=== PATIENT | female | born 1955 | race Caucasian/White ===

== ENCOUNTER → 2016-03-11 | Outpatient (CLI) | payer BC, MEDICARE ==
[2016-03-11 14:52] LABS: Basophils % (A) 0 %; CH 31.6; CHCM 33.4; Eosinophils # (A) 0.1 k/uL (0-0.7); Eosinophils % (A) 4 %; HCT 42.7 % (34.0-46.0); HDW 2.93; HGB 13.6 gm/dL (11.4-16.0); Luc # (Auto) 0.07; Luc % (Auto) 2; Lymphocytes # (A) 1.3 k/uL (1.0-4.8); Lymphocytes % (A) 34 %; MCH 30.5 pg (25.0-35.0); MCV 95.4 fL (80.0-100.0); Mean Platelet Volume 8.2; Monocytes # (A) 0.3 k/uL (0-1.0); Monocytes % (A) 7 %; Neutrophils # (A) 2.1 k/uL (1.3-7.7); Neutrophils % (A) 54 %; RBC 4.47 m/uL (3.80-5.40); RDW 15.3 % (11.5-15.5); WBC (Perox) 3.98
[2016-03-11 15:02] LABS: ALT 39 U/L (9-52); AST 35 U/L (14-36); Alkaline Phosphatase 103 U/L (38-126); Amylase 46 U/L (30-110); Anion Gap 10 mmol/L; Blood Urea Nitrogen 12 mg/dL (7-17); Calcium 9.6 mg/dL (8.4-10.2); Carbon Dioxide 31 mmol/L (22-30); Chloride 105 mmol/L (98-107); Glucose 96 mg/dL (74-99); Non-African American GFR(MDRD) >60 (>60 ml/min/1.73 sqM); Potassium 4.2 mmol/L (3.5-5.1); Sodium 146 mmol/L (137-145); Total Bilirubin 1.6 mg/dL (0.2-1.3); Total Protein 7.3 g/dL (6.3-8.2)
[2016-03-11 15:18] LABS: Large Platelets Present
[2016-03-11 15:19] LABS: Polychromasia Present
[2016-03-11 15:33] LABS: Hepatitis B Surface Ag Index 0.08
[2016-03-11 15:39] LABS: Hepatitis B Core IgM Index 0.04
[2016-03-11 15:51] LABS: Hepatitis C Virus IgG Ab Negative (Negative); Hepatitis C Virus IgG Index 0.64
[2016-03-11 16:03] LABS: Erythrocyte Sedimentation Rate 8 mm/hr (0-20)
== END | disposition home or self-care (01) ==
LOC: LABWHC1 13:46
PROVIDERS: ATTEND Family Medicine
DX: K72.90 Hepatic failure, unspecified without coma (principal); I10 Essential (primary) hypertension; R10.84 Generalized abdominal pain; Z11.59 Encounter for screening for other viral diseases
CPT/HCPCS: 36415; 80053; 80074; 82105; 82140; 82150; 83690; 84439; 84443; 85025; 85652

== ENCOUNTER 2018-03-26 15:03 | Inpatient (IN) | payer MEDICARE ==
[2018-03-26 16:31] LABS: Appearance,Urine Cloudy (Clear); Bilirubin,Urine 1+ (Negative); Blood,Urine Negative (Negative); Color,Urine Orange; Glucose,Urine (UA) Negative (Negative); Ketones,Urine Negative (Negative); Leukocyte Esterase,Urine Negative (Negative); Mucus,Urine Many /hpf; Nitrite,Urine Negative (Negative); PH, Urine 5.5 (5.0-8.0); Protein,Urine 1+ (Negative); Specific Gravity,Urine 1.021 (1.001-1.035); Squamous Epithelial Cell,Urine 2 /hpf (0-4); WBC,Urine 1 /hpf (0-5)
[2018-03-26 16:45] LABS: Basophils % (A) 0 %; Eosinophils # (A) 0.1 k/uL (0-0.7); Eosinophils % (A) 1 %; HCT 38.2 % (34.0-46.0); HGB 12.6 gm/dL (11.4-16.0); Lymphocytes # (A) 0.9 k/uL (1.0-4.8); Lymphocytes % (A) 13 %; MCH 29.8 pg (25.0-35.0); MCHC 32.9 g/dL (31.0-37.0); MCV 90.5 fL (80.0-100.0); Mean Platelet Volume 7.1; Monocytes # (A) 0.5 k/uL (0-1.0); Monocytes % (A) 7 %; Neutrophils # (A) 5.6 k/uL (1.3-7.7); Neutrophils % (A) 78 %; Platelet Count 173 k/uL (150-450); RBC 4.23 m/uL (3.80-5.40); RDW 14.9 % (11.5-15.5); WBC 7.2 k/uL (3.8-10.6)
[2018-03-26 16:58] LABS: ALT 23 U/L (9-52); AST 34 U/L (14-36); Albumin 3.8 g/dL (3.5-5.0); Alkaline Phosphatase 128 U/L (38-126); Amylase 35 U/L (30-110); Anion Gap 10 mmol/L; Blood Urea Nitrogen 17 mg/dL (7-17); Calcium 9.2 mg/dL (8.4-10.2); Carbon Dioxide 26 mmol/L (22-30); Chloride 105 mmol/L (98-107); Glucose 120 mg/dL (74-99); Lipase 162 U/L (23-300); Potassium 4.5 mmol/L (3.5-5.1); Sodium 141 mmol/L (137-145); Total Bilirubin 1.7 mg/dL (0.2-1.3); Total Protein 7.6 g/dL (6.3-8.2)
--- NOTE | 2018-03-26 17:35 | CT ---
EXAMINATION TYPE: CT abdomen pelvis w IV con DATE OF EXAM: 03/26/2018 COMPARISON: None HISTORY: Abdominal pain CT DLP: 1021.3 mGycm Automated exposure control for dose reduction was used. TECHNIQUE: Departmental protocol. Helical acquisition of images was performed from the lung bases th rough the pelvis. Axial and coronal and sagittal sequences obtained. CONTRAST: 100 mL of Isovue 300 IV contrast. No oral contrast. FINDINGS: PERITONEAL CAVITY: There is massive ascites throughout the abdomen and pelvis. LIVER/SPLEEN: The liver is markedly atrophic, with the liver margins prominently scalloped. There is mild-plus splenomegaly with greatest dimension measuring 15 cm. VASCULATURE: Abdominal varices are noted. There is low attenuation within the main portal vein, likel y flow-related mixing of relatively low-opacified mesenteric vessels compared with the robust opacifi cation of the splenic vein. Low attenuation noted within the common femoral veins bilaterally, likely unopacified blood returning from the lower extremities. BILIARY TREE/PANCREAS: Cholelithiasis and sludge occupying approximately 5% of the gallbladder lumen. Biliary tree otherwise unremarkable. Pancreas unremarkable. ADRENALS: No significant abnormality is seen. KIDNEYS: No significant abnormality is seen. RETROPERITONEAL ADENOPATHY: None visualized. OMENTUM: There is a nonspecific moderately-prominent reticular pattern of increased density throughou t the omentum suggesting edematous change. REPRODUCTIVE ORGANS: No significant abnormality is seen URINARY BLADDER: No significant abnormality is seen. PELVIC ADENOPATHY: None visualized. OSSEOUS STRUCTURES: No significant abnormality is seen. BOWEL: No bowel obstruction or pneumatosis. SUPRADIAPHRAGMATIC FINDINGS: No significant abnormality is appreciated. Coronary calcifications noted . IMPRESSION: 1. MASSIVE ASCITES WITH HEPATOSPLENIC AND ABDOMINAL VARICES COMPATIBLE WITH A CLINICAL DIAGNOSIS OF CIRRHOSIS. 2. NO ACUTE BOWEL ABNORMALITY. 3. OMENTAL RETICULATION PATTERN. 4. LOW ATTENUATION OF BILATERAL COMMON FEMORAL VEINS AND PORTAL VEIN, LIKELY FLOW-RELATED PHENOMENON . 5. CORONARY CALCIFICATIONS.
--- NOTE | 2018-03-26 18:24 | ED ---
General Adult HPI - General Chief complaint: Abdominal Pain Stated complaint: Bloated, abd pain Time Seen by Provider: 03/26/18 15:29 Source: patient, RN notes reviewed Mode of arrival: ambulatory Limitations: no limitations - History of Present Illness Initial comments: 62-year-old female with a past medical history of cirrhosis, hyperlipidemia, hypertension presents to the emergency department for abdominal distention 2 months. Patient states this has worsened in the past few weeks. Patient states she had a negative CAT scan about 2 months ago. She states her primary set her up to see a GI physician next week but she could not make it to that point. Patient states her abdomen is very distended and it is uncomfortable. Patient is having normal bowel movements and last had a normal bowel movement earlier today. Patient is passing gas normally. She is eating and drinking. She denies significant pain but states that it is uncomfortable. Patient has never undergone paracentesis - Related Data Home Medications Medication Instructions Recorded Confirmed Calcium 1200mg/Vit D 1000 Units 1 tab PO DAILY 09/25/14 03/26/18 Multivit with Calcium,Iron,Min 1 tab PO DAILY 09/25/14 03/26/18 [Women's Daily Multivitamin] Omeprazole 40 mg PO DAILY PRN 09/25/14 03/26/18 Atenolol [Tenormin] 50 mg PO DAILY 03/26/18 03/26/18 Magnesium Oxide [Mag-Ox] 400 mg PO DAILY 03/26/18 03/26/18 Potassium Chloride ER [K-Dur 20] 40 meq PO TID 03/26/18 03/26/18 Sertraline [Zoloft] 100 mg PO DAILY 03/26/18 03/26/18 Spironolactone [Aldactone] 25 mg PO DAILY 03/26/18 03/26/18 rOPINIRole HCL [Requip] 0.5 mg PO HS 03/26/18 03/26/18 Previous Rx's Medication Instructions Recorded Furosemide [Lasix] 40 mg PO DAILY #30 tab 09/28/14 Allergies Allergy/AdvReac Type Severity Reaction Status Date / Time No Known Allergies Allergy Verified 03/26/18 16:11 Review of Systems ROS Statement: Those systems with pertinent positive or pertinent negative responses have been documented in the HPI. ROS Other: All systems not noted in ROS Statement are negative. Past Medical History Past Medical History: Hyperlipidemia, Hypertension, Liver Disease Additional Past Medical History / Comment(s): diagnosed with liver damage from ETOH in History of Any Multi-Drug Resistant Organisms: None Reported Past Surgical History: Orthopedic Surgery Past Psychological History: No Psychological Hx Reported Smoking Status: Former smoker Past Alcohol Use History: Occasional Past Drug Use History: None Reported - Past Family History Mother Family Medical History: No Reported History General Exam Limitations: no limitations Course Vital Signs 03/26/18 03/26/18 15:18 18:19 Temperature 98.6 F Pulse Rate 89 85 Respiratory 18 16 Rate Blood Pressure 123/84 121/71 O2 Sat by Pulse 96 95 Oximetry Medical Decision Making - Medical Decision Making 62-year-old female with a past medical history of cirrhosis, hyperlipidemia, hypertension presents for abdominal distention 2 months. Patient states this is uncomfortable but denies pain. On exam patient does have distention noted. No tenderness to palpation. No erythema or evidence of infection noted. Vitals are within acceptable limits. CBC CMP unremarkable. Total bilirubin 1.7 which is patient's baseline. Urine does not show any evidence of infection. CT abdomen and pelvis shows massive ascites with hepatosplenic and abdominal varices. No acute bowel abnormality. Given patient's history of cirrhosis as well as massive ascites without history of paracentesis she will be admitted for further evaluation and possible paracentesis. Discussed case with Dr tillman - Lab Data Result diagrams: 03/26/18 16:34 03/26/18 16:34 Lab Results 03/26/18 03/26/18 03/26/18 Range/Units 16:18 16:34 16:34 WBC 7.2 (3.8-10.6) k/uL RBC 4.23 (3.80-5.40) m/uL Hgb 12.6 (11.4-16.0) gm/dL Hct 38.2 (34.0-46.0) % MCV 90.5 (80.0-100.0) fL MCH 29.8 (25.0-35.0) pg MCHC 32.9 (31.0-37.0) g/dL RDW 14.9 (11.5-15.5) % Plt Count 173 (150-450) k/uL Neutrophils % 78 % Lymphocytes % 13 % Monocytes % 7 % Eosinophils % 1 % Basophils % 0 % Neutrophils # 5.6 (1.3-7.7) k/uL Lymphocytes # 0.9 L (1.0-4.8) k/uL Monocytes # 0.5 (0-1.0) k/uL Eosinophils # 0.1 (0-0.7) k/uL Basophils # 0.0 (0-0.2) k/uL Sodium 141 (137-145) mmol/L Potassium 4.5 (3.5-5.1) mmol/L Chloride 105 (98-107) mmol/L Carbon Dioxide 26 (22-30) mmol/L Anion Gap 10 mmol/L BUN 17 (7-17) mg/dL Creatinine 0.54 (0.52-1.04) mg/dL Est GFR (CKD-EPI)AfAm >90 (>60 ml/min/1.73 sqM) Est GFR (CKD-EPI)NonAf >90 (>60 ml/min/1.73 sqM) Glucose 120 H (74-99) mg/dL Calcium 9.2 (8.4-10.2) mg/dL Total Bilirubin 1.7 H (0.2-1.3) mg/dL AST 34 (14-36) U/L ALT 23 (9-52) U/L Alkaline Phosphatase 128 H (38-126) U/L Total Protein 7.6 (6.3-8.2) g/dL Albumin 3.8 (3.5-5.0) g/dL Amylase 35 (30-110) U/L Lipase 162 (23-300) U/L Urine Color [place] Urine Appearance Cloudy H (Clear) Urine pH 5.5 (5.0-8.0) Ur Specific [place] 1.021 (1.001-1.035) Urine Protein 1+ H (Negative) Urine Glucose (UA) Negative (Negative) Urine Ketones Negative (Negative) Urine Blood Negative (Negative) Urine Nitrite Negative (Negative) Urine Bilirubin 1+ H (Negative) Urine Urobilinogen 3.0 (<2.0) mg/dL Ur Leukocyte Esterase Negative (Negative) Urine WBC 1 (0-5) /hpf Ur Squamous Epith Cells 2 (0-4) /hpf Urine Mucus Many H (None) /hpf Disposition Clinical Impression: Alcoholic cirrhosis, Ascites Disposition: ADMITTED IP TO THIS HOSP Condition: Good Referrals: Susana Arreguin MD [Primary Care Provider] - 1-2 days Time of Disposition: 18:49
[2018-03-26] MEDS ORDERED: ACETAMINOPHEN TAB 325 MG TAB PO PRN (19:21)
[2018-03-26] MEDS ORDERED: NALOXONE 0.4 MG/ML 1 ML VIAL IV PRN (19:21)
[2018-03-26] MEDS ORDERED: traMADol 50 MG TAB PO PRN (19:21)
[2018-03-26] MEDS ORDERED: ONDANSETRON 4 MG/2 ML VIAL IVP PRN (19:21)
[2018-03-26] MEDS ORDERED: PANTOPRAZOLE 40 MG TABLET PO PRN (22:21)
[2018-03-26] MEDS: SODIUM CHLORIDE 0.9% 1,000 ML IV SCH (22:28)
[2018-03-26] MEDS: POTASSIUM CHLORIDE ER 20 MEQ TAB.ER PO SCH (22:38)
[2018-03-26] MEDS: SERTRALINE 100 MG TAB PO SCH (22:38)
[2018-03-27] MEDS: POTASSIUM CHLORIDE ER 20 MEQ TAB.ER PO SCH ×3 (08:21→21:35)
[2018-03-27] MEDS: CALCIUM CARB-VIT D 500MG-200UN 1 EACH TAB PO SCH (08:21)
[2018-03-27] MEDS: MAGNESIUM OXIDE 400 MG TAB PO SCH (08:21)
[2018-03-27] MEDS: FUROSEMIDE 40 MG TAB PO SCH (08:21)
[2018-03-27] MEDS ORDERED: SPIRONOLACTONE 25 MG TAB PO SCH (09:00)
[2018-03-27] MEDS ORDERED: ATENOLOL 50 MG TAB PO SCH (09:00)
[2018-03-27 09:51] LABS: HCT 36.6 % (34.0-46.0); HGB 11.6 gm/dL (11.4-16.0); Hypochromasia Slight; MCH 29.1 pg (25.0-35.0); MCHC 31.6 g/dL (31.0-37.0); MCV 92.2 fL (80.0-100.0); Mean Platelet Volume 6.5; Platelet Count 162 k/uL (150-450); RBC 3.97 m/uL (3.80-5.40); RDW 14.6 % (11.5-15.5); WBC 6.5 k/uL (3.8-10.6)
[2018-03-27 10:07] LABS: Anion Gap 9 mmol/L; Blood Urea Nitrogen 16 mg/dL (7-17); Calcium 8.9 mg/dL (8.4-10.2); Carbon Dioxide 27 mmol/L (22-30); Chloride 106 mmol/L (98-107); Glucose 159 mg/dL (74-99); Potassium 4.7 mmol/L (3.5-5.1); Sodium 142 mmol/L (137-145)
[2018-03-27 11:13] LABS: INR 1.2 (<1.2); Prothrombin Time 12.8 sec (9.0-12.0)
[2018-03-27] MEDS: MULTIVITAMINS, THERA 1 EACH TAB PO SCH (12:49)
[2018-03-27] MEDS: SODIUM CHLORIDE 0.9% 1,000 ML IV SCH (12:50)
--- NOTE | 2018-03-27 16:09 | HP ---
HISTORY AND PHYSICAL DATE OF ADMISSION: March 26, 2018 DATE OF SERVICE: March 27, 2018 PRESENTING COMPLAINT: Abdominal distention. HISTORY OF PRESENTING COMPLAINT: A very pleasant 62-year-old patient of Dr. Susana Arreguin. Chronic stable medical conditions include hypertension, hyperlipidemia, scoliosis, anxiety. The patient has known alcohol-induced cirrhosis. The patient stopped drinking in 2014. Drinks alcohol only occasionally. The patient is progressively having more distention of her abdomen to the point she is becoming short of breath. Also has got edema. No fever. No chills. The patient is scheduled for intervention Radiology to do a therapeutic tap. No fever. No chills. Patient's appetite is fair. The patient used to follow up with Dr. Harkins from Gastroenterology, but because of insurance reasons, stopped following. The patient does take a dose of Aldactone and Lasix at home. is present. REVIEW OF SYSTEMS: CONSTITUTIONAL: Tired. HEENT None. RESPIRATORY as above. CARDIOVASCULAR: None. GASTROINTESTINAL: As above. GENITOURINARY: None. MUSCULOSKELETAL: Occasional low back pain. DERMATOLOGICAL, HEMATOLOGIC, LYMPHATIC: none. PSYCHIATRY none. NEUROLOGICAL: None. PAST MEDICAL HISTORY: Hypertension, hyperlipidemia, cirrhosis, scoliosis, anxiety. PAST SURGICAL HISTORY: Orthopedic surgery, tubal ligation, right tibia surgery due to break, cast, plate and 7 screws. PSYCH HISTORY: Anxiety. SOCIAL HISTORY: The patient smoked a pack a day for 33 years. Stopped in 2006, drank alcohol for quite some time. Stopped in 2014. Occasionally now . FAMILY HISTORY: Cancer type unknown. HOME MEDICATIONS: 1. Requip 0.5 mg q.h.s. 2. Aldactone 25 mg a day. 3. Zoloft 100 mg p.o. daily. 4. Potassium 40 mEq p.o. t.i.d. 5. Omeprazole 40 mg p.o. daily p.r.n. 6. Women's multi daily 1 tablet p.o. daily. 7. Magnesium oxide 400 mg p.o. daily. 8. Lasix 40 mg p.o. daily. 9. Calcium with vitamin D 1 tablet p.o. daily. 10.Tenormin 50 mg p.o. daily. ALLERGIES: None. EXAMINATION: VITAL SIGNS: Temp 98, pulse 73, respirations 18, blood pressure 127/68, pulse ox 95% on room air. GENERAL APPEARANCE: Average built, sitting up, not in distress. EYES: Pupils equal. Conjunctivae pale. HEENT: External appearance of nose and ears normal. Oral cavity normal. NECK: JVD not raised. Mass not palpable. RESPIRATORY: Effort normal. LUNGS: Fair entry. CARDIOVASCULAR: 1st and 2nd sounds normal. Edema present. ABDOMEN: Distended. Liver and spleen not palpable. Dullness to percussion flanks. LYMPHATICS: No lymph nodes palpable in the neck or axilla. PSYCHIATRY: Alert and oriented x3. Mood and affect normal. NEUROLOGICAL: Pupils equal. Cranial nerves grossly intact. Power and sensation grossly intact. INVESTIGATIONS: White count 7.2, hemoglobin 12.6, potassium 4.5, BUN 17, creatinine 0.54. CT scan of the abdomen and pelvis shows massive ascites with hepatosplenomegaly and abdominal varices. ASSESSMENT: 1. Severe symptomatic ascites secondary to cirrhosis. 2. Varices secondary to cirrhosis. 3. Suspect secondary portal hypertension due to above. 4. Essential hypertension. 5. Hyperlipidemia. 6. Scoliosis. 7. Anxiety not otherwise specified. PLAN: The patient will be going for therapeutic paracentesis today. The patient's dose of Aldactone will be increased to 100 mg a day. Patient will be put on a low-sodium diet and also fluid restriction of 1500 mL a day. Care was discussed with the patient's . Questions were answered. The patient will be set up to see Dr. Harkins in the office. We will see how the patient does overnight. Copy to Susana Arreguin. LACHO / TERIN: [id number] /
--- NOTE | 2018-03-27 16:11 | US ---
EXAMINATION TYPE: US paracentesis abd w/image DATE OF EXAM: 03/27/2018 COMPARISON: NONE HISTORY: Ascites. PROCEDURE: Maximal barrier technique was utilized. The skin overlying a suitable pocket of fluid was localized with ultrasound and the overlying skin was prepped and draped. Ultrasound was utilized with sterile technique. Lidocaine was used for local anesthesia and a skin verena made with a scalpel. Catheter was advanced under direct ultrasound guidance into a suitable pocket of fluid and approximately 8 liters of sanguinous fluid were removed. Catheter was withdrawn and hemostasis achieved. There is no immed iate complication; the patient is discharged in stable condition. IMPRESSION: STATUS POST ULTRASOUND GUIDED PARACENTESIS FOR PALLIATION OF ASCITES. THIS PROCEDURE WA S PERFORMED BY THE UNDERSIGNED. Specimen acquired for laboratory analysis
[2018-03-27 16:48] LABS: Appearance,BF Cloudy; Color,BF Red; Nucleated Cells, Body Fluid 160 /uL; RBC, Body Fluid 8100 /uL
[2018-03-27 16:50] LABS: Mononuclear WBC,Body Fluid 51 %; Polynuclear WBC,Body Fluid 49 %; Total Cells Counted,Body Fluid 100
[2018-03-27] MEDS: SERTRALINE 100 MG TAB PO SCH (21:36)
[2018-03-28 05:49] LABS: Total Protein, Body Fluid 2836 mg/dL
[2018-03-28] MEDS: MAGNESIUM OXIDE 400 MG TAB PO SCH (07:52)
[2018-03-28] MEDS: MULTIVITAMINS, THERA 1 EACH TAB PO SCH (07:53)
[2018-03-28] MEDS: FUROSEMIDE 40 MG TAB PO SCH (07:53)
[2018-03-28] MEDS: POTASSIUM CHLORIDE ER 20 MEQ TAB.ER PO SCH ×2 (07:53→16:16)
[2018-03-28] MEDS: CALCIUM CARB-VIT D 500MG-200UN 1 EACH TAB PO SCH (07:53)
[2018-03-28 08:14] VITALS: RESP 18
[2018-03-28] MEDS ORDERED: SPIRONOLACTONE 25 MG TAB PO SCH (09:00)
[2018-03-28] MEDS ORDERED: METOPROLOL TARTRATE 25 MG TAB PO SCH (09:00)
[2018-03-28 10:20] LABS: Anion Gap 7 mmol/L; Blood Urea Nitrogen 15 mg/dL (7-17); Calcium 8.7 mg/dL (8.4-10.2); Carbon Dioxide 26 mmol/L (22-30); Chloride 107 mmol/L (98-107); Glucose 224 mg/dL (74-99); Potassium 4.7 mmol/L (3.5-5.1); Sodium 140 mmol/L (137-145)
[2018-03-28 16:45] VITALS: BP 128/75; PULSE 91; TEMP 99.1
== END 2018-03-28 16:52 | disposition home or self-care (01) | DRG 433 ==
LOC: EC 15:03 → 4MS4W 18:49
PROVIDERS: ADMIT Hospitalist; ATTEND Hospitalist
PROC: 0W9G3ZX Drainage of Peritoneal Cavity, Percutaneous Approach, Diagnostic (ICD-10-PCS; principal; 2018-03-27)
DX: K70.31 Alcoholic cirrhosis of liver with ascites (principal); K76.6 Portal hypertension; M41.9 Scoliosis, unspecified; I86.8 Varicose veins of other specified sites; I10 Essential (primary) hypertension; E78.5 Hyperlipidemia, unspecified; F41.9 Anxiety disorder, unspecified; F10.21 Alcohol dependence, in remission; Z79.899 Other long term (current) drug therapy; Z87.81 Personal history of (healed) traumatic fracture; Z87.891 Personal history of nicotine dependence; Z98.51 Tubal ligation status
CPT/HCPCS: 36415; 49083; 74177; 80048; 80053; 81001; 82150; 82945; 83615; 83690; 84157; 85025; 85027; 85610; 87070; 87075; 87205; 88108; 88305; 89050; 99285

== ENCOUNTER 2018-05-11 12:13 | Day surgery (SDC) | payer MEDICARE ==
[2018-05-11 12:41] VITALS: TEMP 97.7
[2018-05-11 12:49] LABS: Mean Platelet Volume 6.3; Platelet Count 154 k/uL (150-450)
[2018-05-11 12:51] LABS: INR 1.2 (<1.2); Prothrombin Time 12.5 sec (9.0-12.0)
[2018-05-11] MEDS: ALBUMIN HUMAN 25% 50 ML in EMPTY BAG 1 BAG IVPB SCH ×4 (13:50→14:29)
[2018-05-11 13:54] VITALS: RESP 16
[2018-05-11 14:44] VITALS: BP 105/59; PULSE 78
--- NOTE | 2018-05-11 14:46 | US ---
Ultrasound-guided paracentesis HISTORY: Ascites Maximal barrier technique was utilized. Ultrasound was used to sterile technique. Skin overlying a suitable pocket in the right hemiabdomen was localized with ultrasound and the overl betsy skin was prepped and draped. Ultrasound images document the procedure. Lidocaine was used for lo ashtyn anesthesia and a skin verena made with a scalpel. Catheter advanced under ultrasound guidance and the cannula was removed following placement of the ca theter tip in the abdomen. Approximately 7.2 L of serous fluid were drained. Catheter was removed and hemostasis achieved. No immediate complication. Patient remained in stable condition. IMPRESSION: Status post ultrasound guided paracentesis for palliation of ascites. This procedure perf ormed by the undersigned. Sign
== END 2018-05-11 15:00 | disposition home or self-care (01) ==
LOC: RADPROMAIN 12:13
PROVIDERS: ATTEND Internal Medicine Gastroenterology
DX: R18.8 Other ascites (principal)
CPT/HCPCS: 82565; 85049; 85610; 49083; P9047

== ENCOUNTER → 2018-08-13 | Day surgery (SDC) | payer MEDICARE ==
[2018-08-13 13:38] LABS: Mean Platelet Volume 8.5; Platelet Count 146 k/uL (150-450)
[2018-08-13 13:41] VITALS: RESP 18; TEMP 98.2
[2018-08-13 13:44] LABS: INR 1.1 (<1.2); Prothrombin Time 11.5 sec (9.0-12.0)
[2018-08-13 13:48] LABS: African American GFR (CKD) >90 (>60 ml/min/1.73 sqM)
[2018-08-13] MEDS: ALBUMIN HUMAN 25% 50 ML in EMPTY BAG 1 BAG IVPB SCH ×4 (14:27→16:02)
[2018-08-13 16:01] VITALS: BP 115/62; PULSE 64
--- NOTE | 2018-08-15 09:06 | US ---
Therapeutic paracentesis. DATE OF EXAM: 08/13/2018 CLINICAL HISTORY: Ascites The procedure was discussed with the patient. The risks, complications, benefits, and alternatives we re discussed and any questions were answered. Informed consent was obtained. The patient was placed s upine on the ultrasound table and prepped and draped in the usual sterile fashion. All elements of maximal barrier technique were utilized. Under ultrasound guidance, access into the left lower quadrant was obtained, via the paracentesis catheter system and direct ultrasound guidance . Approximately 8 liters of straw-colored fluid was removed. The patient was stable throughout the proc edure and remained stable upon discharge from Department of Radiology. IMPRESSION: Successful therapeutic paracentesis under ultrasound guidance.
== END | disposition home or self-care (01) ==
LOC: RADPROMAIN 13:05
PROVIDERS: ATTEND Internal Medicine Gastroenterology
DX: R18.8 Other ascites (principal)
CPT/HCPCS: 82565; 85049; 85610; 36415; 49083; P9047

== ENCOUNTER 2018-10-10 12:27 | Day surgery (SDC) | payer MEDICARE ==
[2018-10-10 12:45] VITALS: TEMP 98
[2018-10-10 12:50] LABS: Mean Platelet Volume 8.2; Platelet Count 146 k/uL (150-450)
[2018-10-10 12:59] LABS: African American GFR (CKD) >90 (>60 ml/min/1.73 sqM)
[2018-10-10 13:07] LABS: INR 1.1 (<1.2); Prothrombin Time 11.2 sec (9.0-12.0)
[2018-10-10 13:38] VITALS: RESP 16
[2018-10-10] MEDS: ALBUMIN HUMAN 25% 50 ML in EMPTY BAG 1 BAG IVPB SCH ×3 (14:08→14:35)
[2018-10-10 14:53] VITALS: BP 113/67; PULSE 69
--- NOTE | 2018-10-10 15:35 | US ---
EXAMINATION TYPE: US paracentesis abd w/image DATE OF EXAM: 10/10/2018 COMPARISON: NONE HISTORY: Ascites. PROCEDURE: Maximal barrier technique was utilized. The skin overlying a suitable pocket of fluid was localized with ultrasound and the overlying skin was prepped and draped. Ultrasound was utilized with sterile technique. Lidocaine was used for local anesthesia and a skin verena made with a scalpel. Catheter was advanced under direct ultrasound guidance into a suitable pocket of fluid and approximately 4.6 liter s of serous fluid were removed. Catheter was withdrawn and hemostasis achieved. There is no immedia te complication; the patient is discharged in stable condition. IMPRESSION: STATUS POST ULTRASOUND GUIDED PARACENTESIS FOR PALLIATION OF ASCITES. THIS PROCEDURE WA S PERFORMED BY THE UNDERSIGNED.
== END 2018-10-10 14:56 | disposition home or self-care (01) ==
LOC: RADPROMAIN 12:27
PROVIDERS: ATTEND Internal Medicine Gastroenterology
DX: R18.8 Other ascites (principal)
CPT/HCPCS: 82565; 85049; 85610; 49083; P9047

== ENCOUNTER 2019-01-15 12:29 | Day surgery (SDC) | payer MEDICARE ==
[2019-01-15 13:12] VITALS: RESP 20; TEMP 97.5
[2019-01-15 13:13] LABS: Mean Platelet Volume 6.7; Platelet Count 129 k/uL (150-450)
[2019-01-15 13:22] LABS: INR 1.1 (<1.2); Prothrombin Time 11.1 sec (9.0-12.0)
[2019-01-15] MEDS: ALBUMIN HUMAN 25% 50 ML in EMPTY BAG 1 BAG IVPB SCH ×4 (14:10→14:58)
[2019-01-15 14:57] VITALS: BP 107/58; PULSE 74
--- NOTE | 2019-01-15 15:37 | US ---
EXAMINATION TYPE: US paracentesis abd w/image DATE OF EXAM: 01/15/2019 COMPARISON: NONE HISTORY: Ascites. PROCEDURE: Maximal barrier technique was utilized. The skin overlying a suitable pocket of fluid was localized with ultrasound and the overlying skin was prepped and draped. Ultrasound was utilized with sterile technique. Lidocaine was used for local anesthesia and a skin verena made with a scalpel. Catheter was advanced under direct ultrasound guidance into a suitable pocket of fluid and approximately 4.1 liter s of serous fluid were removed. Catheter was withdrawn and hemostasis achieved. There is no immedia te complication; the patient is discharged in stable condition. IMPRESSION: STATUS POST ULTRASOUND GUIDED PARACENTESIS FOR PALLIATION OF ASCITES. THIS PROCEDURE WA S PERFORMED BY THE UNDERSIGNED.
--- NOTE | 2019-01-15 16:17 | US ---
EXAMINATION TYPE: US liver DATE OF EXAM: 01/15/2019 COMPARISON: NONE CLINICAL HISTORY: R18.8 Ascites K70.31 Alcoholic cirrhosis of liver. Ascites, cirrhosis EXAM MEASUREMENTS: Liver Length: 14.6 cm Gallbladder Wall: 0.3 cm CBD: 0.6 cm Right Kidney: 9.7 x 4.1 x 4.4 cm Pancreas: visualized portions appear wnl Liver: Cirrhotic morphology. No focal hepatic mass is seen on today's exam. Gallbladder: multiple small stones. Hydropic size of this measures 8.3 x 5.3 cm. Evidence for sonographic Cordon's sign: no CBD: upper limits of normal Right Kidney: no evidence of hydronephrosis Ascites noted IMPRESSION: 1. Cirrhotic morphology of the liver and perihepatic ascites. No discrete hepatic lesion seen on toda y's exam. 2. Hydropic size of the gallbladder. Consider chronic cholecystitis. HIDA scan with CCK could evaluat e for biliary dyskinesia or chronic cholecystitis. Common bile duct is also upper limits of normal.
== END 2019-01-15 15:05 | disposition home or self-care (01) ==
LOC: RADPROMAIN 12:29
PROVIDERS: ATTEND Internal Medicine Gastroenterology
DX: K70.31 Alcoholic cirrhosis of liver with ascites (principal)
CPT/HCPCS: 82565; 85049; 85610; 36415; 49083; 76705; P9047

== ENCOUNTER 2019-11-05 12:47 | Day surgery (SDC) | payer MEDICARE ==
[2019-11-05 13:29] VITALS: TEMP 97.7
[2019-11-05 13:51] LABS: INR 1.1 (<1.2); Prothrombin Time 11.4 sec (9.0-12.0)
[2019-11-05 13:52] LABS: Mean Platelet Volume 9.3
[2019-11-05 13:56] LABS: Platelet Count 40 k/uL (150-450)
[2019-11-05 14:00] LABS: African American GFR (CKD) >90 (>60 ml/min/1.73 sqM); Non-African American GFR(CKD) 84 (>60 ml/min/1.73 sqM)
[2019-11-05] MEDS: ALBUMIN HUMAN 25% 50 ML in EMPTY BAG 1 BAG IVPB SCH ×3 (14:52→16:00)
[2019-11-05 16:18] VITALS: RESP 16
[2019-11-05 16:21] VITALS: BP 94/65; PULSE 72
== END 2019-11-05 16:21 | disposition home or self-care (01) ==
LOC: RADPROMAIN 12:47
PROVIDERS: ATTEND Internal Medicine Gastroenterology
DX: R18.8 Other ascites (principal); K70.31 Alcoholic cirrhosis of liver with ascites; Z53.9 Procedure and treatment not carried out, unspecified reason
CPT/HCPCS: 36415; 82565; 85049; 85610

== ENCOUNTER → 2019-11-05 | Outpatient (CLI) | payer MEDICARE ==
--- NOTE | 2019-11-05 16:51 | US ---
EXAMINATION TYPE: US paracentesis abd w/image DATE OF EXAM: 11/05/2019 CLINICAL HISTORY: Alcoholic cirrhosis COMPARISON: 01/15/2019 PAPER MAKING MACHINE OPERATOR: Dr. Serenity Mcleod PROCEDURE: Procedure preliminary ultrasound imaging demonstrates large volume ascites. The procedure was discussed with the patient. The risks, complications, benefits, and alternatives we re discussed and any questions were answered. Informed consent was obtained. The patient was placed s upine on the ultrasound table and prepped and draped in the usual sterile fashion. All elements of maximal barrier technique were utilized. Under ultrasound guidance, access into the left upper quadrant was obtained with a 5 Icelandic one-step centesis catheter. Approximately 8.6 liters of clear serous fluid was removed. Catheter was removed and sterile bandage was applied. The patient was stable throughout the procedure and remained stable upon discharge from Department of Radiology. IMPRESSION: Successful ultrasound-guided paracentesis, with removal of 8.6 liters of clear serous fluid.
--- NOTE | 2019-11-06 07:24 | US ---
EXAMINATION TYPE: US liver DATE OF EXAM: 11/05/2019 COMPARISON: NONE CLINICAL HISTORY: K70.31 Alcoholic cirrhosis. Cirrhosis EXAM MEASUREMENTS: Liver Length: 18.4 cm Gallbladder Wall: .3 cm CBD: .7 cm Right Kidney: 9.5 x 4.4 x 3.6 cm Pancreas: Tail obscured by overlying bowel gas Liver: Increased attenuation heterogenous lobulated. Gallbladder: Multiple stones seen. Evidence for sonographic Cordon's sign: No CBD: Dilated Right Kidney: wnl IMPRESSION: 1 fatty liver. 2. Clinical basis.
== END | disposition home or self-care (01) ==
LOC: RADUSMAIN 12:49
PROVIDERS: ATTEND Internal Medicine Gastroenterology
DX: K70.31 Alcoholic cirrhosis of liver with ascites (principal)
CPT/HCPCS: 49083; 76705

== ENCOUNTER 2019-12-24 12:29 | Day surgery (SDC) | payer MEDICARE ==
[2019-12-24 12:48] VITALS: RESP 16; TEMP 97.5
[2019-12-24 13:14] LABS: Mean Platelet Volume 9.6
[2019-12-24 13:21] LABS: African American GFR (CKD) >90 (>60 ml/min/1.73 sqM); Non-African American GFR(CKD) 80 (>60 ml/min/1.73 sqM)
[2019-12-24 13:31] LABS: Prothrombin Time 10.8 sec (9.0-12.0)
[2019-12-24 13:38] LABS: Platelet Count 39 k/uL (150-450)
[2019-12-24] MEDS: ALBUMIN HUMAN 25% 50 ML in EMPTY BAG 1 BAG IVPB SCH ×4 (14:47→15:40)
[2019-12-24 16:16] VITALS: BP 96/58; PULSE 81
--- NOTE | 2019-12-24 17:34 | US ---
EXAMINATION TYPE: US paracentesis abd w/image DATE OF EXAM: 12/24/2019 CLINICAL HISTORY: Ascites COMPARISON: Ultrasound paracentesis 920 TITLE CLERK AUTOMOBILE: Dr. Serenity Mcleod PROCEDURE: Preprocedure preliminary ultrasound imaging demonstrates large volume ascites. The procedure was discussed with the patient. The risks, complications, benefits, and alternatives we re discussed and any questions were answered. Informed consent was obtained. The patient was placed s upine on the ultrasound table and prepped and draped in the usual sterile fashion. All elements of maximal barrier technique were utilized. Under ultrasound guidance, access into the left lower quadrant was obtained with a 5 Setswana one-step centesis catheter. Approximately 10.2 liters of clear serous fluid was removed. Catheter was removed and sterile bandage was applied. The patient was stable throughout the procedure and remained stable upon discharge from Department of Radiology. IMPRESSION: Successful ultrasound-guided paracentesis, with removal of 10.2 liters of clear serous fluid.
== END 2019-12-24 16:30 | disposition home or self-care (01) ==
LOC: RADPROMAIN 12:29
PROVIDERS: ATTEND Internal Medicine Gastroenterology
DX: R18.8 Other ascites (principal)
CPT/HCPCS: 82565; 85049; 85610; 36415; 49083; P9047

== ENCOUNTER → 2020-02-17 | Outpatient (CLI) | payer MEDICARE ==
[2020-02-17 18:03] LABS: Mean Platelet Volume 10.6
[2020-02-17 18:04] LABS: Platelet Count 33 k/uL (150-450)
[2020-02-18 00:10] LABS: INR 1.07 (0.90-1.11); Prothrombin Time 11.5 sec (9.9-11.9)
== END | disposition home or self-care (01) ==
LOC: LABWHC1 16:51
PROVIDERS: ATTEND Internal Medicine Gastroenterology
DX: Z01.818 Encounter for other preprocedural examination (principal)
CPT/HCPCS: 36415; 85049; 85610; 86850; 86900; 86901

== ENCOUNTER 2020-02-18 12:57 | Day surgery (SDC) | payer MEDICARE ==
[2020-02-18] MEDS: ALBUMIN HUMAN 25% 50 ML in EMPTY BAG 1 BAG IVPB SCH ×4 (14:50→15:43)
[2020-02-18 15:31] VITALS: TEMP 98
[2020-02-18 15:49] VITALS: BP 110/60; PULSE 92; RESP 18
--- NOTE | 2020-02-18 15:52 | US ---
Ultrasound-guided paracentesis. DATE OF EXAM: 02/18/2020 CLINICAL HISTORY: Ascites The procedure was discussed with the patient. The risks, complications, benefits, and alternatives we re discussed and any questions were answered. Informed consent was obtained. The patient was placed s upine on the ultrasound table and prepped and draped in the usual sterile fashion. All elements of maximal barrier technique were utilized. Under ultrasound guidance, access into the right lower quadrant was obtained, via the paracentesis catheter system and direct ultrasound guidanc e. Approximately 8.2 liters of straw-colored fluid was removed. The patient was stable throughout the pr ocedure and remained stable upon discharge from Department of Radiology. IMPRESSION: Successful paracentesis under ultrasound guidance.
== END 2020-02-18 16:21 | disposition home or self-care (01) ==
LOC: RADPROMAIN 12:57
PROVIDERS: ATTEND Internal Medicine Gastroenterology
DX: R18.8 Other ascites (principal)
CPT/HCPCS: 36415; 49083; P9073; P9047; 86850; 86900; 86901

== ENCOUNTER 2020-05-11 12:14 | Day surgery (SDC) | payer MEDICARE ==
[2020-05-11 12:28] VITALS: RESP 16
[2020-05-11] MEDS: ALBUMIN HUMAN 25% 50 ML in EMPTY BAG 1 BAG IVPB SCH ×4 (12:52→15:36)
[2020-05-11 13:06] LABS: Basophils % (A) 1 %; Eosinophils # (A) 0.1 k/uL (0-0.7); Eosinophils % (A) 4 %; HCT 37.4 % (34.0-46.0); HGB 12.3 gm/dL (11.4-16.0); Lymphocytes # (A) 0.7 k/uL (1.0-4.8); Lymphocytes % (A) 19 %; MCH 29.3 pg (25.0-35.0); MCV 88.7 fL (80.0-100.0); Mean Platelet Volume 10.3; Monocytes # (A) 0.4 k/uL (0-1.0); Monocytes % (A) 10 %; Neutrophils # (A) 2.5 k/uL (1.3-7.7); Neutrophils % (A) 66 %; RBC 4.21 m/uL (3.80-5.40); RDW 14.7 % (11.5-15.5); WBC 3.7 k/uL (3.8-10.6)
[2020-05-11 13:22] LABS: INR 1.1 (<1.2); Prothrombin Time 11.2 sec (9.0-12.0)
[2020-05-11 13:23] LABS: ALT 13 U/L (4-34); AST 29 U/L (14-36); African American GFR (CKD) >90 (>60 ml/min/1.73 sqM); Albumin 4.1 g/dL (3.5-5.0); Alkaline Phosphatase 136 U/L (38-126); Anion Gap 7 mmol/L; Blood Urea Nitrogen 18 mg/dL (7-17); Calcium 9.4 mg/dL (8.4-10.2); Carbon Dioxide 31 mmol/L (22-30); Chloride 101 mmol/L (98-107); Glucose 114 mg/dL (74-99); Non-African American GFR(CKD) 78 (>60 ml/min/1.73 sqM); Potassium 4.2 mmol/L (3.5-5.1); Sodium 139 mmol/L (137-145); Total Bilirubin 1.1 mg/dL (0.2-1.3); Total Protein 8.2 g/dL (6.3-8.2)
[2020-05-11 13:33] LABS: Platelet Count 29 k/uL (150-450)
[2020-05-11 14:06] VITALS: TEMP 98.1
[2020-05-11 15:43] VITALS: PULSE 74
[2020-05-11 15:54] VITALS: BP 95/52
--- NOTE | 2020-05-12 11:14 | US ---
Ultrasound-guided paracentesis. DATE OF EXAM: 05/12/2020 CLINICAL HISTORY: Ascites The procedure was discussed with the patient. The risks, complications, benefits, and alternatives we re discussed and any questions were answered. Informed consent was obtained. The patient was placed s upine on the ultrasound table and prepped and draped in the usual sterile fashion. All elements of maximal barrier technique were utilized. Under ultrasound guidance, access into the right lower quadrant was obtained, via the paracentesis catheter system and direct ultrasound guidanc e. Approximately 8.6 liters of straw-colored fluid was removed. The patient was stable throughout the pr ocedure and remained stable upon discharge from Department of Radiology. IMPRESSION: Successful paracentesis under ultrasound guidance.
== END 2020-05-11 16:10 | disposition home or self-care (01) ==
LOC: RADPROMAIN 12:14 → EDSTATUS 12:20 → RADPROMAIN 16:10
PROVIDERS: ATTEND Internal Medicine Gastroenterology
DX: R18.8 Other ascites (principal)
CPT/HCPCS: 80053; 85025; 85610; 36415; 49083; P9073; P9047

== ENCOUNTER 2020-06-08 09:12 | Day surgery (SDC) | payer MEDICARE ==
[2020-06-08] MEDS: ALBUMIN HUMAN 25% 50 ML in EMPTY BAG 1 BAG IVPB SCH ×4 (09:41→11:45)
[2020-06-08 09:42] LABS: Mean Platelet Volume 10.4
[2020-06-08 09:46] LABS: Platelet Count 49 k/uL (150-450)
[2020-06-08 10:00] LABS: Prothrombin Time 11.1 sec (9.0-12.0)
[2020-06-08 11:28] VITALS: TEMP 97.8
[2020-06-08 12:25] VITALS: BP 105/61; PULSE 68; RESP 18
--- NOTE | 2020-06-08 13:36 | US ---
Ultrasound-guided paracentesis. DATE OF EXAM: 06/08/2020 CLINICAL HISTORY: Ascites The procedure was discussed with the patient. The risks, complications, benefits, and alternatives we re discussed and any questions were answered. Informed consent was obtained. The patient was placed s upine on the ultrasound table and prepped and draped in the usual sterile fashion. All elements of maximal barrier technique were utilized. Under ultrasound guidance, access into the right lower quadrant was obtained, via the paracentesis catheter system and direct ultrasound guidan ce. Approximately 6.9 liters of straw-colored fluid was removed. The patient was stable throughout the pr ocedure and remained stable upon discharge from Department of Radiology. IMPRESSION: Successful paracentesis under ultrasound guidance.
== END 2020-06-08 12:10 | disposition home or self-care (01) ==
LOC: RADPROMAIN 09:12
PROVIDERS: ATTEND Internal Medicine Gastroenterology
DX: K70.31 Alcoholic cirrhosis of liver with ascites (principal)
CPT/HCPCS: 82565; 85049; 85610; 36415; 49083; P9073; P9047

== ENCOUNTER 2020-06-15 13:48 | Inpatient (IN) | payer MEDICARE ==
[2020-06-15 15:21] LABS: Basophils % (A) 0 %; Eosinophils # (A) 0.1 k/uL (0-0.7); Eosinophils % (A) 1 %; HCT 41.7 % (34.0-46.0); HGB 14.5 gm/dL (11.4-16.0); Lymphocytes # (A) 0.7 k/uL (1.0-4.8); Lymphocytes % (A) 7 %; MCH 29.2 pg (25.0-35.0); MCHC 34.7 g/dL (31.0-37.0); MCV 84.1 fL (80.0-100.0); Mean Platelet Volume 8.2; Monocytes # (A) 0.7 k/uL (0-1.0); Monocytes % (A) 7 %; Neutrophils # (A) 8.5 k/uL (1.3-7.7); Neutrophils % (A) 84 %; RBC 4.96 m/uL (3.80-5.40); RDW 15.1 % (11.5-15.5); WBC 10.1 k/uL (3.8-10.6)
[2020-06-15 15:39] LABS: Appearance,Urine Clear (Clear); Bilirubin,Urine Negative (Negative); Blood,Urine Negative (Negative); Calcium Oxalate Crystals,Urine Few /hpf; Color,Urine Orange; Glucose,Urine (UA) Negative (Negative); Hyaline Casts,Urine 113 /lpf (0-2); Ketones,Urine Negative (Negative); Leukocyte Esterase,Urine Small (Negative); Mucus,Urine Many /hpf; Nitrite,Urine Negative (Negative); PH, Urine 5.5 (5.0-8.0); Protein,Urine Trace (Negative); RBC,Urine 1 /hpf (0-5); Specific Gravity,Urine 1.026 (1.001-1.035); Squamous Epithelial Cell,Urine 2 /hpf (0-4); Urobilinogen,Urine <2.0 mg/dL (<2.0); WBC,Urine 19 /hpf (0-5)
[2020-06-15 15:40] LABS: ALT 16 U/L (4-34); AST 32 U/L (14-36); African American GFR (CKD) >90 (>60 ml/min/1.73 sqM); Albumin 3.8 g/dL (3.5-5.0); Alkaline Phosphatase 112 U/L (38-126); Amylase 41 U/L (30-110); Anion Gap 12 mmol/L; Blood Urea Nitrogen 19 mg/dL (7-17); Calcium 9.9 mg/dL (8.4-10.2); Carbon Dioxide 26 mmol/L (22-30); Chloride 95 mmol/L (98-107); Glucose 149 mg/dL (74-99); Lipase 138 U/L (23-300); Non-African American GFR(CKD) 87 (>60 ml/min/1.73 sqM); Potassium 4.4 mmol/L (3.5-5.1); Sodium 133 mmol/L (137-145); Total Bilirubin 1.6 mg/dL (0.2-1.3); Total Protein 7.2 g/dL (6.3-8.2)
[2020-06-15] MEDS ORDERED: MORPHINE SULFATE 2 MG/ML SYRINGE IVP ONE (16:41)
[2020-06-15 16:47] LABS: Platelet Count 79 k/uL (150-450)
--- NOTE | 2020-06-15 17:29 | ED ---
Abdominal Pain HPI - General Chief Complaint: Abdominal Pain Stated Complaint: N/V/D Time Seen by Provider: 06/15/20 14:58 Source: patient, RN notes reviewed Mode of arrival: ambulatory Limitations: no limitations - History of Present Illness Initial Comments: 64-year-old white female presents to the emergency room complaining of nausea and abdominal pain since Monday. Patient states on June 11 had a paracentesis done for ascites from liver disease. Patient also states has umbilical hernia that she has had for more than one year, along with a left inguinal hernia who she sees Dr. Harkins. Patient states is not a candidate for surgery related to h er ascites and need for liver transplant. Patient states previously was drained on May 06 with no complications. Patient states also that she had a tuna sandwich on Monday and felt sick, states she had approximately 5 episodes of vomiting on Monday but none since. Denies fevers but does complain of nausea. Patient states pain in her back is 10 out of 10, states pain from shoulders down to hips. Patient states does have scoliosis and pain feels better with massage. Pt does not want to eat, has not eaten anything since crackers on Monday. MD Complaint: abdominal pain -: days(s) (4) Location: diffuse Radiation: back Quality: fullness Consistency: constant Improves With: nothing Worsens With: eating Context: recent surgery/procedure (Monday last week had paracentesis) Associated Symptoms: nausea - Related Data Patient : No Home Medications Medication Instructions Recorded Confirmed Multivit with Calcium,Iron,Min 1 tab PO DAILY 09/25/14 06/15/20 [Women's Daily Multivitamin] Magnesium Oxide [Mag-Ox] 400 mg PO DAILY 03/26/18 06/15/20 Sertraline [Zoloft] 100 mg PO DAILY 03/26/18 06/15/20 rOPINIRole HCL [Requip] 0.5 mg PO HS 03/26/18 06/15/20 Furosemide [Lasix] 80 mg PO DAILY 05/09/18 06/15/20 Spironolactone [Aldactone] 100 mg PO BID 05/09/18 06/15/20 Calcium Carbonate [Calcium] 1,200 mg PO DAILY 09/28/18 06/15/20 Omeprazole 20 mg PO DAILY PRN 09/28/18 06/15/20 Cholecalciferol [Vitamin D3 (25 1,000 unit PO DAILY 12/16/19 06/15/20 Mcg = 1000 Iu)] Cyanocobalamin (Vitamin B-12) 500 mcg PO DAILY 01/17/20 06/15/20 [Vitamin B-12] Potassium Chloride ER [K-Dur 20] 40 meq PO BID 05/01/20 06/15/20 Furosemide [Lasix] 40 mg PO HS 06/15/20 06/15/20 Previous Rx's Medication Instructions Recorded Metoprolol Tartrate [Lopressor] 25 mg PO BID #60 tab 03/28/18 Allergies Allergy/AdvReac Type Severity Reaction Status Date / Time No Known Allergies Allergy Verified 06/15/20 16:34 Review of Systems ROS Statement: Those systems with pertinent positive or pertinent negative responses have been documented in the HPI. ROS Other: All systems not noted in ROS Statement are negative. Past Medical History Past Medical History: CVA/TIA, Hyperlipidemia, Hypertension, Liver Disease, Memory Impairment, Myocardial Infarction ([place]) Additional Past Medical History / Comment(s): diagnosed with liver damage from ETOH in (alcoholic liver dz,cirrhosis/ascities), past uti, scoliosis. pt stated at some point in time she had a small heart attack that was found on an ekg. "mini strokes", ascites and multi paracentesis, abdominal pain, gas pain, macrocytic anemia, essential tremors, varicose vein hemorrhage Last Myocardial Infarction Date:: unk History of Any Multi-Drug Resistant Organisms: None Reported Past Surgical History: Orthopedic Surgery, Tubal Ligation Additional Past Surgical History / Comment(s): ORIF rt tibia,laparoscopy, paracentesis, EGD, acites Past Anesthesia/Blood Transfusion Reactions: No Reported Reaction Additional Past Anesthesia/Blood Transfusion Reaction / Comment(s): pt has had previous platelet transfusions for paracentesis Past Psychological History: Anxiety, Depression Smoking Status: Former smoker Past Alcohol Use History: Daily Past Drug Use History: Marijuana - Past Family History Father Family Medical History: Cancer Additional Family Medical History / Comment(s): dad is alive at age 94 has kidney cancer Mother Family Medical History: No Reported History Additional Family Medical History / Comment(s): at age 92. had scoliosis General Exam Limitations: no limitations General appearance: alert, in no apparent distress Head exam: Present: atraumatic, normocephalic, normal inspection Eye exam: Present: normal appearance, PERRL, EOMI. Absent: scleral icterus, conjunctival injection, periorbital swelling ENT exam: Present: normal exam, mucous membranes dry (sticky mucous membranes) Neck exam: Present: normal inspection, full ROM. Absent: tenderness, meningismus, lymphadenopathy, thyromegaly Respiratory exam: Present: normal lung sounds bilaterally. Absent: respiratory distress, wheezes, rales, rhonchi, stridor Cardiovascular Exam: Present: tachycardia GI/Abdominal exam: Present: soft, distended, hyperactive bowel sounds, hernia (umbilical, left inguinal, periumbilical), other (palpable subcutaneous nodules felt periumbilical). Absent: guarding, rebound, rigid, bruit Extremities exam: Present: normal inspection, full ROM, normal capillary refill. Absent: tenderness, pedal edema, calf tenderness Back exam: Present: normal inspection, other (scoliosis). Absent: CVA tenderness (R), CVA tenderness (L) Neurological exam: Present: alert, oriented X3, CN II-XII intact Psychiatric exam: Present: normal affect, normal mood Skin exam: Present: warm, dry, intact, normal color. Absent: rash, cyanosis, diaphoretic, pallor Course Vital Signs 06/15/20 06/15/20 06/15/20 14:22 15:40 15:44 Temperature 98.3 F 100.8 F H Pulse Rate 118 H 108 H 79 Respiratory 19 18 18 Rate Blood Pressure 153/102 126/87 131/69 O2 Sat by Pulse 98 98 92 L Oximetry 06/15/20 17:16 Temperature Pulse Rate 100 Respiratory 18 Rate Blood Pressure 138/84 O2 Sat by Pulse 96 Oximetry Medical Decision Making - Lab Data Result diagrams: 06/15/20 14:40 06/15/20 14:48 Lab Results 06/15/20 06/15/20 06/15/20 Range/Units 14:40 14:48 14:48 WBC 10.1 (3.8-10.6) k/uL RBC 4.96 (3.80-5.40) m/uL Hgb 14.5 (11.4-16.0) gm/dL Hct 41.7 (34.0-46.0) % MCV 84.1 (80.0-100.0) fL MCH 29.2 (25.0-35.0) pg MCHC 34.7 (31.0-37.0) g/dL RDW 15.1 (11.5-15.5) % Plt Count 79 L D (150-450) k/uL MPV 8.2 Neutrophils % 84 % Lymphocytes % 7 % Monocytes % 7 % Eosinophils % 1 % Basophils % 0 % Neutrophils # 8.5 H (1.3-7.7) k/uL Lymphocytes # 0.7 L (1.0-4.8) k/uL Monocytes # 0.7 (0-1.0) k/uL Eosinophils # 0.1 (0-0.7) k/uL Basophils # 0.0 (0-0.2) k/uL Sodium 133 L (137-145) mmol/L Potassium 4.4 (3.5-5.1) mmol/L Chloride 95 L (98-107) mmol/L Carbon Dioxide 26 (22-30) mmol/L Anion Gap 12 mmol/L BUN 19 H (7-17) mg/dL Creatinine 0.74 (0.52-1.04) mg/dL Est GFR (CKD-EPI)AfAm >90 (>60 ml/min/1.73 sqM) Est GFR (CKD-EPI)NonAf 87 (>60 ml/min/1.73 sqM) Glucose 149 H (74-99) mg/dL Calcium 9.9 (8.4-10.2) mg/dL Total Bilirubin 1.6 H (0.2-1.3) mg/dL AST 32 (14-36) U/L ALT 16 (4-34) U/L Alkaline Phosphatase 112 (38-126) U/L Total Protein 7.2 (6.3-8.2) g/dL Albumin 3.8 (3.5-5.0) g/dL Amylase 41 (30-110) U/L Lipase 138 (23-300) U/L Urine Color [place] Urine Appearance Clear (Clear) Urine pH 5.5 (5.0-8.0) Ur Specific [place] 1.026 (1.001-1.035) Urine Protein Trace H (Negative) Urine Glucose (UA) Negative (Negative) Urine Ketones Negative (Negative) Urine Blood Negative (Negative) Urine Nitrite Negative (Negative) Urine Bilirubin Negative (Negative) Urine Urobilinogen <2.0 (<2.0) mg/dL Ur Leukocyte Esterase Small H (Negative) Urine RBC 1 (0-5) /hpf Urine WBC 19 H (0-5) /hpf Ur Squamous Epith Cells 2 (0-4) /hpf Calcium Oxalate Crystal Few H (None) /hpf Hyaline Casts 113 H (0-2) /lpf Urine Mucus Many H (None) /hpf Coronavirus (PCR) (Not Detectd) 06/15/20 Range/Units 17:13 WBC (3.8-10.6) k/uL RBC (3.80-5.40) m/uL Hgb (11.4-16.0) gm/dL Hct (34.0-46.0) % MCV (80.0-100.0) fL MCH (25.0-35.0) pg MCHC (31.0-37.0) g/dL RDW (11.5-15.5) % Plt Count (150-450) k/uL MPV Neutrophils % % Lymphocytes % % Monocytes % % Eosinophils % % Basophils % % Neutrophils # (1.3-7.7) k/uL Lymphocytes # (1.0-4.8) k/uL Monocytes # (0-1.0) k/uL Eosinophils # (0-0.7) k/uL Basophils # (0-0.2) k/uL Sodium (137-145) mmol/L Potassium (3.5-5.1) mmol/L Chloride (98-107) mmol/L Carbon Dioxide (22-30) mmol/L Anion Gap mmol/L BUN (7-17) mg/dL Creatinine (0.52-1.04) mg/dL Est GFR (CKD-EPI)AfAm (>60 ml/min/1.73 sqM) Est GFR (CKD-EPI)NonAf (>60 ml/min/1.73 sqM) Glucose (74-99) mg/dL Calcium (8.4-10.2) mg/dL Total Bilirubin (0.2-1.3) mg/dL AST (14-36) U/L ALT (4-34) U/L Alkaline Phosphatase (38-126) U/L Total Protein (6.3-8.2) g/dL Albumin (3.5-5.0) g/dL Amylase (30-110) U/L Lipase (23-300) U/L Urine Color Urine Appearance (Clear) Urine pH (5.0-8.0) Ur Specific [place] (1.001-1.035) Urine Protein (Negative) Urine Glucose (UA) (Negative) Urine Ketones (Negative) Urine Blood (Negative) Urine Nitrite (Negative) Urine Bilirubin (Negative) Urine Urobilinogen (<2.0) mg/dL Ur Leukocyte Esterase (Negative) Urine RBC (0-5) /hpf Urine WBC (0-5) /hpf Ur Squamous Epith Cells (0-4) /hpf Calcium Oxalate Crystal (None) /hpf Hyaline Casts (0-2) /lpf Urine Mucus (None) /hpf Coronavirus (PCR) Not Detected (Not Detectd) - EKG Data -: EKG Interpreted by Or EKG shows normal: sinus rhythm (Ventricular rate of 101, AL interval of 0.14, QRS of 0.68, QTc 0.422) Disposition Clinical Impression: Incarcerated hernia, Ascites Disposition: ADMITTED IP TO THIS [facility] Condition: Fair Is patient prescribed a controlled substance at d/c from ED?: No Referrals: Susana Arreguin MD [Primary Care Provider] - 1-2 days Decision Date: 06/15/20 Decision Time: 18:37
--- NOTE | 2020-06-15 17:30 | CT ---
EXAMINATION TYPE: CT abdomen pelvis w con DATE OF EXAM: 06/15/2020 COMPARISON: HISTORY: Abdominal and back pain. Paracentesis one week ago. CT DLP: 763.6 mGycm Automated exposure control for dose reduction was used. CONTRAST: Performed with IV Contrast, patient injected with 100 mL of Isovue 300. Images were obtained from the diaphragm to the floor the pelvis with IV contrast. Lung bases are clear of consolidation. There is no pleural effusion. There is no pericardial effusion . There is massive amount of abdominal ascites fluid. There is irregular liver consistent with cirrho sis. Liver appears contracted and there is poorly marginated 4 cm area of hypodensity in the inferior right lobe of the liver. Spleen is enlarged and measures 16 cm. Liver measures 15 cm. The stomach ap pears intact. I see no evidence of pancreatic mass. There are numerous calcified gallstones. Gallblad magda measures 3.6 cm. The bile ducts are not dilated. There is no adrenal mass. Kidneys show satisfactory contrast opacification. There is no hydronephrosi s. Ureters are not dilated. Delayed images show normal renal excretion. There is no retroperitoneal a denopathy. There is umbilical hernia that contains incarcerated bowel. Large bowel is mostly empty. T here are some moderately dilated loops of small bowel in the mid abdomen. These measure up to 3.4 cm. Transition point appears to be at the umbilical hernia. Distal small bowel on the right side of the abdomen does not appear dilated. There is no free air. There is a moderate thoracolumbar dextroscoliosis. There is no compression frac ture. The bony pelvis is intact. The hip joints are intact. IMPRESSION: Irregular contracted liver consistent with cirrhosis similar to old exam. There is hypodensity in the inferior lateral right lobe of the liver that appears new compared to old exam. Tumor is possible. Splenomegaly similar to old exam. Changes of portal venous hypertension with some varices at the splenic hilum. No evidence of portal v ein thrombosis. Incarcerated umbilical hernia containing small bowel with evidence for mechanical small bowel obstruc tion. Massive ascites. Unchanged. Cholelithiasis unchanged.
[2020-06-15] MEDS ORDERED: ONDANSETRON 4 MG/2 ML VIAL IVP PRN (18:32)
[2020-06-15] MEDS ORDERED: NALOXONE 0.4 MG/ML 1 ML VIAL IV PRN ×2 (18:32→21:07)
[2020-06-15] MEDS ORDERED: LACTATED RINGERS 1,000 ML IV SCH (19:30)
--- NOTE | 2020-06-15 19:54 | P.GSHP ---
History of Present Illness H&P Date: 06/15/20 Chief Complaint: Incarcerated umbilical hernia This a 64-year-old female who presents emergency room complaints of abdominal pain nausea. Patient CAT scan is found have an incarcerated umbilical hernia. Patient currently small bowel evidence of small bowel obstruction. Past Medical History Past Medical History: CVA/TIA, Hyperlipidemia, Hypertension, Liver Disease, Memory Impairment, Myocardial Infarction ([place]) Additional Past Medical History / Comment(s): diagnosed with liver damage from ETOH in (alcoholic liver dz,cirrhosis/ascities), past uti, scoliosis. pt stated at some point in time she had a small heart attack that was found on an ekg. "mini strokes", ascites and multi paracentesis, abdominal pain, gas pain, macrocytic anemia, essential tremors, varicose vein hemorrhage Last Myocardial Infarction Date:: unk History of Any Multi-Drug Resistant Organisms: None Reported Past Surgical History: Orthopedic Surgery, Tubal Ligation Additional Past Surgical History / Comment(s): ORIF rt tibia,laparoscopy, paracentesis, EGD, acites Past Anesthesia/Blood Transfusion Reactions: No Reported Reaction Additional Past Anesthesia/Blood Transfusion Reaction / Comment(s): pt has had previous platelet transfusions for paracentesis Past Psychological History: Anxiety, Depression Smoking Status: Former smoker Past Alcohol Use History: Daily Past Drug Use History: Marijuana - Past Family History Father Family Medical History: Cancer Additional Family Medical History / Comment(s): dad is alive at age 94 has kidney cancer Mother Family Medical History: No Reported History Additional Family Medical History / Comment(s): at age 92. had scoliosis Medications and Allergies Home Medications Medication Instructions Recorded Confirmed Type Multivit with Calcium,Iron,Min 1 tab PO DAILY 09/25/14 06/15/20 History [Women's Daily Multivitamin] Magnesium Oxide [Mag-Ox] 400 mg PO DAILY 03/26/18 06/15/20 History Sertraline [Zoloft] 100 mg PO DAILY 03/26/18 06/15/20 History rOPINIRole HCL [Requip] 0.5 mg PO HS 03/26/18 06/15/20 History Metoprolol Tartrate [Lopressor] 25 mg PO BID #60 tab 03/28/18 06/15/20 Rx Furosemide [Lasix] 80 mg PO DAILY 05/09/18 06/15/20 History Spironolactone [Aldactone] 100 mg PO BID 05/09/18 06/15/20 History Calcium Carbonate [Calcium] 1,200 mg PO DAILY 09/28/18 06/15/20 History Omeprazole 20 mg PO DAILY PRN 09/28/18 06/15/20 History Cholecalciferol [Vitamin D3 (25 1,000 unit PO DAILY 12/16/19 06/15/20 History Mcg = 1000 Iu)] Cyanocobalamin (Vitamin B-12) 500 mcg PO DAILY 01/17/20 06/15/20 History [Vitamin B-12] Potassium Chloride ER [K-Dur 20] 40 meq PO BID 05/01/20 06/15/20 History Furosemide [Lasix] 40 mg PO HS 06/15/20 06/15/20 History Allergies Allergy/AdvReac Type Severity Reaction Status Date / Time No Known Allergies Allergy Verified 06/15/20 16:34 Surgical - Exam Vital Signs Temp Pulse Resp BP Pulse Ox 98.3 F 118 H 19 153/102 98 06/15/20 14:22 06/15/20 14:22 06/15/20 14:22 06/15/20 14:22 06/15/20 14:22 - General well developed, moderate distress - ENT normal pinna - Neck no masses - Respiratory normal expansion - Cardiovascular Rhythm: regular - Abdomen Abdomen: soft, non tender Hernia: umbilical (4 cm incarcerated umbilical hernia) Results - Labs 06/15/20 14:40 06/15/20 14:48 Abnormal Lab Results - Last 24 Hours (Table) 06/15/20 06/15/20 06/15/20 Range/Units 14:40 14:48 14:48 Plt Count 79 L D (150-450) k/uL Neutrophils # 8.5 H (1.3-7.7) k/uL Lymphocytes # 0.7 L (1.0-4.8) k/uL Sodium 133 L (137-145) mmol/L Chloride 95 L (98-107) mmol/L BUN 19 H (7-17) mg/dL Glucose 149 H (74-99) mg/dL Total Bilirubin 1.6 H (0.2-1.3) mg/dL Urine Protein Trace H (Negative) Ur Leukocyte Esterase Small H (Negative) Urine WBC 19 H (0-5) /hpf Calcium Oxalate Crystal Few H (None) /hpf Hyaline Casts 113 H (0-2) /lpf Urine Mucus Many H (None) /hpf Diabetes panel 06/15/20 Range/Units 14:48 Sodium 133 L (137-145) mmol/L Potassium 4.4 (3.5-5.1) mmol/L Chloride 95 L (98-107) mmol/L Carbon Dioxide 26 (22-30) mmol/L BUN 19 H (7-17) mg/dL Creatinine 0.74 (0.52-1.04) mg/dL Glucose 149 H (74-99) mg/dL Calcium 9.9 (8.4-10.2) mg/dL AST 32 (14-36) U/L ALT 16 (4-34) U/L Alkaline Phosphatase 112 (38-126) U/L Total Protein 7.2 (6.3-8.2) g/dL Albumin 3.8 (3.5-5.0) g/dL Calcium panel 06/15/20 Range/Units 14:48 Calcium 9.9 (8.4-10.2) mg/dL Albumin 3.8 (3.5-5.0) g/dL Pituitary panel 06/15/20 Range/Units 14:48 Sodium 133 L (137-145) mmol/L Potassium 4.4 (3.5-5.1) mmol/L Chloride 95 L (98-107) mmol/L Carbon Dioxide 26 (22-30) mmol/L BUN 19 H (7-17) mg/dL Creatinine 0.74 (0.52-1.04) mg/dL Glucose 149 H (74-99) mg/dL Calcium 9.9 (8.4-10.2) mg/dL Adrenal panel 06/15/20 Range/Units 14:48 Sodium 133 L (137-145) mmol/L Potassium 4.4 (3.5-5.1) mmol/L Chloride 95 L (98-107) mmol/L Carbon Dioxide 26 (22-30) mmol/L BUN 19 H (7-17) mg/dL Creatinine 0.74 (0.52-1.04) mg/dL Glucose 149 H (74-99) mg/dL Calcium 9.9 (8.4-10.2) mg/dL Total Bilirubin 1.6 H (0.2-1.3) mg/dL AST 32 (14-36) U/L ALT 16 (4-34) U/L Alkaline Phosphatase 112 (38-126) U/L Total Protein 7.2 (6.3-8.2) g/dL Albumin 3.8 (3.5-5.0) g/dL - Imaging CT scan - pelvis: report reviewed (Incarcerated umbilical hernia with small bowel obstruction) Assessment and Plan Assessment: Incarcerated umbilical hernia with evidence of small bowel charge. Patient will undergo exploratory laparotomy with repair of umbilical hernia today.
[2020-06-15] MEDS ORDERED: GLYCOPYRROLATE 0.2 MG/ML 2 ML VIAL ONE (19:55)
[2020-06-15] MEDS ORDERED: DEXAMETHASONE SOD PHOSPHATE 10 MG/ML 1 ML VIAL ONE (19:55)
[2020-06-15] MEDS ORDERED: PHENYLEPHRINE-0.9% NACL SYG 1,000 MCG/10 ML SYRINGE ONE (19:55)
[2020-06-15] MEDS ORDERED: ROCURONIUM 10 MG/ML (5 ML VIAL) IV ONE (19:55)
[2020-06-15] MEDS ORDERED: ONDANSETRON 4 MG/2 ML VIAL ONE (19:55)
[2020-06-15] MEDS ORDERED: ALBUMIN HUMAN 5% (12.5gm) 250 ML BOTTLE IVPB ONE (19:55)
[2020-06-15] MEDS ORDERED: fentaNYL (PF) 50 MCG/ML 2 ML AMP ONE (19:55)
[2020-06-15] MEDS ORDERED: SUCCINYLCHOLINE CHLORIDE 100 MG/5 ML SYR IV ONE (19:55)
[2020-06-15] MEDS ORDERED: NEOSTIGMINE 1 MG/ML 10 ML VIAL ONE (19:55)
[2020-06-15] MEDS ORDERED: PROPOFOL 10 MG/ML 20 ML VIAL IV ONE (19:55)
[2020-06-15] MEDS ORDERED: IV FLUID CONTINUATION 1,000 ML IV ONE (19:58)
[2020-06-15] MEDS ORDERED: SODIUM CHLORIDE 0.9% 100 ML with ceFAZolin 2,000 MG IV ONE ×2 (20:15)
[2020-06-15] MEDS ORDERED: LACTATED RINGERS 1,000 ML IV ONE (21:07)
--- NOTE | 2020-06-15 21:07 | P.OP ---
Date of Procedure: 06/15/20 Preoperative Diagnosis: Incarcerated ventral hernia Small bowel obstruction Postoperative Diagnosis: Strangulated ventral hernia Small obstruction Small bowel ischemia Procedure(s) Performed: Exploratory laparotomy Small bowel resection Repair of incarcerated ventral hernia Anesthesia: CECILIA Surgeon: Michael Paredes Estimated Blood Loss (ml): 100 Pathology: other (Strangulated small bowel and hernia sac) Condition: stable Disposition: PACU Description of Procedure: The patient's placed on the operative table in supine position. He received general anesthesia. His abdomen was prepped and draped usual sterile fashion. Patient had a large 15 cm ventral hernia. The skin was incised and using left cautery the subcutaneous tissue divided. The hernia sac was opened. There was serosanguineous fluid within the ventral hernia sac. The ventral hernia was then opened and the ischemic small bowel was seen. The hernia neck was opened. And then the small bowel ischemia necrosis visualized. The small bowel was then transected proximally distally using a GI stapler. 1 the bowel was divided with the incidental device and the specimen sent to pathology. Approximate 15 cm of small bowel was sized. A subxiphoid functional end-to-end staple anastomosis was then created using the NATHANIEL and TA stapler. 3-0 GI silk suture was used as a crotch stitch. The abdomen. No bleeding seen. The fascia was closed with looped #1 PDS suture. #1 out of suture was used to oversew the fascial repair. A #19-Slovenian channel drain is brought out through a separate stab incision and the drain was placed over top of the fascial repair. The skin was closed gonzalez. Patient top she will was sent to recovery room in stable condition. T
[2020-06-15] MEDS ORDERED: HYDROmorphone 0.5 MG/0.5 ML SYRINGE IVP ONE ×4 (21:15→21:30)
[2020-06-15] MEDS ORDERED: diphenhydrAMINE 50 MG/ML 1 ML VIAL IVP ONE (21:43)
[2020-06-16 06:51] LABS: Basophils % (A) 0 %; Eosinophils % (A) 0 %; HCT 37.9 % (34.0-46.0); Lymphocytes # (A) 0.4 k/uL (1.0-4.8); Lymphocytes % (A) 5 %; MCH 29.4 pg (25.0-35.0); MCHC 34.4 g/dL (31.0-37.0); MCV 85.3 fL (80.0-100.0); Mean Platelet Volume 8.1; Monocytes # (A) 0.3 k/uL (0-1.0); Monocytes % (A) 4 %; Neutrophils # (A) 6.5 k/uL (1.3-7.7); Neutrophils % (A) 89 %; RBC 4.44 m/uL (3.80-5.40); RDW 15.3 % (11.5-15.5); WBC 7.3 k/uL (3.8-10.6)
[2020-06-16] MEDS ORDERED: HYDROmorphone 0.5 MG/0.5 ML SYRINGE IVP PRN (07:00)
[2020-06-16 07:15] LABS: Platelet Count 68 k/uL (150-450)
[2020-06-16] MEDS: ENOXAPARIN 40 MG/0.4 ML SYRINGE SQ SCH (08:01)
[2020-06-16] MEDS: HYDROmorphone 1 MG/ML 1 ML SYRINGE IVP PRN ×2 (08:01→23:46)
[2020-06-16] MEDS ORDERED: SODIUM CHLORIDE 0.9% 2,000 ML IV ONE (11:04)
[2020-06-16 11:34] LABS: African American GFR (CKD) 81 (>60 ml/min/1.73 sqM); Anion Gap 10 mmol/L; Blood Urea Nitrogen 27 mg/dL (7-17); Calcium 9.1 mg/dL (8.4-10.2); Carbon Dioxide 23 mmol/L (22-30); Chloride 100 mmol/L (98-107); Glucose 165 mg/dL (74-99); Non-African American GFR(CKD) 70 (>60 ml/min/1.73 sqM); Sodium 133 mmol/L (137-145)
[2020-06-16 12:49] VITALS: BMI 18.5
[2020-06-16 13:28] LABS: Band Neutrophils % 20 %; Lymphocytes # (M) 0.29 k/uL (1.0-4.8); Monocytes # (M) 0.22 k/uL (0-1.0); Neutrophils % (M) 74 %; Nucleated Red Blood Cells 0 /100 WBC (0-0); Total Cells Counted 200
[2020-06-16 13:29] LABS: Anisocytosis (M) Present; Poikilocytosis (M) Present
[2020-06-16] MEDS: LACTATED RINGERS 1,000 ML IV SCH ×3 (13:57→23:40)
--- NOTE | 2020-06-16 14:46 | P.PN ---
Subjective Progress Note Date: 06/16/20 CHIEF COMPLAINT: Abdominal pain HISTORY OF PRESENT ILLNESS: Patient is status post exploratory laparotomy, small bowel resection and repair of incarcerated ventral hernia for strangulated ventral hernia, small bowel obstruction and small bowel ischemia. Patient is complaining of abdominal pain improved with pain medication. She is complaining of nausea. She is thirsty and her urine is dark. She has had low urine output. She's afebrile. Tachycardic heart rate 125. She is currently nothing by [facility]. WBC 7.3 hemoglobin 13 platelet 68 sodium 133 potassium 5.0 BUN 27 creatinine 0.88 PHYSICAL EXAM: VITAL SIGNS: Reviewed. GENERAL: Well-developed in no acute distress. HEENT: No sclera icterus. Extraocular movements grossly intact. Moist buccal mucosa. Head is atraumatic, normocephalic. ABDOMEN: Soft. Nondistended. Tenderness at incision site. Dressing clean dry and intact NEUROLOGIC: Alert and oriented. Cranial nerves II through XII grossly intact. ASSESSMENT: 1. strangulated ventral hernia, small bowel obstruction and small bowel ischemia status post exploratory laparotomy, small bowel resection and repair of incarcerated ventral hernia. Postop day #1 2. Hypodensity in the inferior lateral right lobe of the liver. GI consulted 3. History of liver cirrhosis and ascites requiring paracentesis in the past 4. Decreased urine output PLAN: -We'll increase patient's IV fluids, Lactate Ringer to 125 mL per hour -Will give 1 Liter IV fluid bolus -Continue to monitor urine output closely -Continue pain medication as needed -GI service consulted regarding hypodensity of the liver Physician Web Press Operator Helper Offset note has been reviewed by physician. Signing provider agrees with the documented findings, assessment, and plan of care. Objective - Vital Signs Vital signs: Vital Signs Temp 98.1 F 06/16/20 11:13 Pulse 108 H 06/16/20 11:13 Resp 16 06/16/20 11:13 BP 125/64 06/16/20 11:13 Pulse Ox 94 L 06/16/20 11:13 Intake & Output 06/15/20 06/16/20 06/16/20 18:59 06:59 18:59 Intake Total 743 Output Total 140 Balance 603 Weight 54.431 kg 52 kg 52 kg Intake: IV 300 Intake, IV Titration 160 Amount Lactated Ringers 1,000 ml 160 @ 20 mls/hr IV .Q24H [facility] Rx#:[id number] Oral 0 Blood Product 283 Ffp 24 Cpd Unit 283 [id number] Output: Drainage 20 Anterior Abdomen 20 Urine 20 Estimated Blood Loss 100 Other: Voiding Method Indwelling Catheter - Labs CBC & Chem 7: 06/16/20 05:43 06/16/20 05:45 Labs: Abnormal Lab Results - Last 24 Hours (Table) 06/15/20 06/15/20 06/15/20 Range/Units 14:40 14:48 14:48 Plt Count 79 L D (150-450) k/uL Neutrophils # 8.5 H (1.3-7.7) k/uL Lymphocytes # 0.7 L (1.0-4.8) k/uL Lymphocytes # (Manual) (1.0-4.8) k/uL Sodium 133 L (137-145) mmol/L Chloride 95 L (98-107) mmol/L BUN 19 H (7-17) mg/dL Glucose 149 H (74-99) mg/dL Total Bilirubin 1.6 H (0.2-1.3) mg/dL Urine Protein Trace H (Negative) Ur Leukocyte Esterase Small H (Negative) Urine WBC 19 H (0-5) /hpf Calcium Oxalate Crystal Few H (None) /hpf Hyaline Casts 113 H (0-2) /lpf Urine Mucus Many H (None) /hpf 06/16/20 06/16/20 Range/Units 05:43 05:45 Plt Count 68 L (150-450) k/uL Neutrophils # (1.3-7.7) k/uL Lymphocytes # 0.4 L (1.0-4.8) k/uL Lymphocytes # (Manual) 0.29 L (1.0-4.8) k/uL Sodium 133 L (137-145) mmol/L Chloride (98-107) mmol/L BUN 27 H (7-17) mg/dL Glucose 165 H (74-99) mg/dL Total Bilirubin (0.2-1.3) mg/dL Urine Protein (Negative) Ur Leukocyte Esterase (Negative) Urine WBC (0-5) /hpf Calcium Oxalate Crystal (None) /hpf Hyaline Casts (0-2) /lpf Urine Mucus (None) /hpf Microbiology - Last 24 Hours (Table) 06/15/20 14:48 Urine Culture - Preliminary Urine,Voided
[2020-06-16] MEDS ORDERED: SODIUM CHLORIDE 0.9% 1,000 ML IV ONE (15:31)
[2020-06-16] MEDS: PANTOPRAZOLE 40 MG/10 ML VIAL IVP SCH (16:04)
--- NOTE | 2020-06-16 16:47 | CONS ---
CONSULTATION DATE OF DICTATION: 06/16/2020 REASON FOR CONSULTATION: Ascites and liver lesion. HISTORY OF PRESENT ILLNESS: The patient is a 64-year-old pleasant white female who came to the ER with history of liver cirrhosis secondary to alcohol use and refractory ascites requiring paracentesis once every 2 to 3 weeks on an outpatient basis, admitted to the hospital with incarcerated umbilical hernia. She was seen in the emergency room by Dr. Paredes and underwent exploratory laparotomy with small-bowel resection and repair of the umbilical hernia. In the ER she did have a CT of the abdomen and pelvis done that showed a 4 cm lesion in the right lobe of the liver, and hence we are consulted in regard to this issue. Also there was an irregular contour of the liver consistent with liver cirrhosis and there was a massive amount of abdominal ascites noted. The patient is postoperative day #1. She is doing better. She still has some abdominal pain. She has a drain in place which is draining about 30 mL of serosanguineous fluid. Reports no nausea or vomiting. PAST MEDICAL HISTORY: Significant for alcoholic cirrhosis of the liver diagnosed 3 years ago, refractory ascites requiring frequent paracentesis, history of gastroesophageal reflux disease, anxiety, depression. MEDICATIONS: Medications at home include Lasix 40 mg daily, potassium 40 mg twice daily, omeprazole 20 mg daily, Aldactone 100 mg twice daily, Requip, Zoloft, magnesium oxide, multivitamin, vitamin B12. ALLERGIES: NONE. PAST SURGICAL HISTORY: Tubal ligation, ORIF of the right tibia, frequent paracentesis, EGD in the past. SOCIAL HISTORY: Former smoker, heavy alcohol use in the past. She quit drinking about 2 months ago. FAMILY HISTORY: Father had kidney cancer. Mother at age 92. REVIEW OF SYSTEMS: CARDIOPULMONARY: She denies any chest pain or shortness of breath. GENITOURINARY: No dysuria or hematuria. MUSCULOSKELETAL: Unremarkable. SKIN: Unremarkable. ENDOCRINE: Unremarkable. NEUROLOGY: Unremarkable. GI: Complains of abdominal discomfort. ENT/VISION: Unremarkable. CONSTITUTIONAL: No recent weight loss. No fever, chills, night sweats. PHYSICAL EXAMINATION: She appears comfortable. No apparent distress. Vital signs are stable. BP is 133/64, temperature 98, pulse rate 108. HEENT examination unremarkable. Conjunctivae pink. Sclerae anicteric. Oral cavity no lesions. NECK: No JVD or lymph node enlargement. CHEST: Clear to auscultation. HEART: Regular rate and rhythm. ABDOMEN: Soft. There was a midline incision noted. Abdomen was somewhat firm. There was a drain in the right lower quadrant area. EXTREMITIES: No pedal edema. NEUROLOGIC: Alert and oriented x3. No focal deficits. LABS: Labs at the time of admission to the hospital: WBC 10.1, hemoglobin 14, platelets 79,000. AST and ALT are 32 and 16, respectively. T-bilirubin 1.6, alkaline phosphatase normal. BUN is 19, creatinine 0.74. Coronavirus PCR is negative. IMPRESSION: 1. Incarcerated umbilical hernia, status post exploratory laparotomy with small-bowel resection and hernia repair yesterday by Dr. Paredes. Postoperative day #1, doing well. 2. Alcoholic cirrhosis of the liver with portal hypertension and refractory ascites requiring large-volume paracentesis every 2 weeks on an outpatient basis. She is maintained on Lasix and Aldactone on an outpatient basis. Diuretics are on hold since surgery yesterday. 3. Hepatic lesion noted on CT scan of the abdomen that was done yesterday in the ER. Prior ultrasound of the abdomen done in November of 2019 did not show any evidence of liver lesions. This lesion measured about 4 cm in the right lobe of the liver. Rule out hepatocellular carcinoma. 4. Ascites. 5. History of gastroesophageal reflux disease. RECOMMENDATIONS: 1. Obtain alpha-fetoprotein. 2. Will obtain MRI of the liver to delineate the lesion further. 3. Continue management as per Surgery. 4. Hold off further diuretics for now. 5. Will follow with you closely. Thank you for this consultation. MMODL / IJN: [id number] /
--- NOTE | 2020-06-16 22:07 | P.CONS ---
History of Present Illness - Reason for Consult Consult date: 06/16/20 Medical management Requesting physician: Michael Paredes - Chief Complaint Abdominal pain - History of Present Illness History of presenting complaint: This is a pleasant 64-year-old patient of Dr. Susana Arreguin. She also follows with indoor plant technician Dr. Jose G Harkins. Chronic stable medical conditions include hypertension, hyperlipidemia, scoliosis, anxiety, alcohol-induced cirrhosis. Patient stopped drinking in 2014. Only drinks occasionally. Patient's gets his repeated scheduled paracentesis. Patient now presented with increasing abdominal pain for 3 days. Nausea vomiting. For one day. No fever no chills. Appetite had been fair. Normally has about 3 bowel movements a day. Patient yesterday taken to the operating room was found to have a strangulate and ventral hernia with small bowel ischemia with obstruction. Small bowel resection with repair of the ventral hernia was carried out. Review of systems: GEN.: Tired EYES: None HEENT: None NECK: None RESPIRATORY: None CARDIOVASCULAR: None GASTROINTESTINAL: As above GENITOURINARY: Olivas catheter MUSCULOSKELETAL: None LYMPHATICS: None HEMATOLOGICAL: None PSYCHIATRY: None NEUROLOGICAL: None Past medical history to include: Ascites, cirrhosis from alcoholism, secondary bone portal hypertension, essential hypertension, hyperlipidemia, scoliosis, hepatosplenomegaly, anxiety Social history: Patient smoked a pack for 33 years. Stopped in 2006. Patient is drinking excessive alcohol 2 2014. Physical examination: VITAL SIGNS: 97.7, 108, 14, 118/74, 98% on 2 L GENERAL: [BMI 18.5, laying in bed, tired. EYES: Pupils equal. Conjunctiva normal. HEENT: External appearance of nose and ears normal, oral cavity grossly normal. NECK: JVD not raised; masses not palpable. HEART: First and second heart sounds are normal; no edema. LUNGS: Respiratory rate normal; decreased breath sounds. ABDOMEN: Soft, mild tenderness, PHILL drain, liver spleen not palpable, no masses palpable. PSYCH: Alert and oriented x3; mood and affect normal. NEUROLOGICAL: Cranial nerves grossly intact; no facial asymmetry, power and sensation grossly intact. LYMPHATICS: No lymph nodes palpable in the axilla and neck. INVESTIGATIONS, reviewed in the clinical context: WBC 7.3 hemoglobin 13 platelets 68 potassium 5 creatinine 0.88 Coronavirus [PCF]-not detected Computed tomography scan of the abdomen: Cirrhotic liver. Splenomegaly. Changes of portal venous hypertension. Incarcerated of medical hernia containing small bowel with evidence of small bowel obstruction. Gallstones Assessment and plan: -Incarcerated ventral hernia of the abdominal wall with small bowel obstruction Status post surgical repair and resection of small bowel -Ascites secondary to cirrhosis Continue with Lasix and Aldactone -Alcohol-induced cirrhosis Fluid restriction and low-salt diet -Secondary portal hypertension from cirrhosis Follow clinically -Essential hypertension Continue Lopressor -Chronic scoliosis Pain medications if needed -Hepatosplenomegaly from cirrhosis Follow clinically -Thrombocytopenia chronic from cirrhosis Follow platelets Diet to be advanced as per surgery. Patient is currently in. This morning. Resume home medications. Care was discussed with the patient. Questions answ ered Thank you Dr. Paredes Past Medical History Past Medical History: CVA/TIA, Hyperlipidemia, Hypertension, Liver Disease, Memory Impairment, Myocardial Infarction (MA) Additional Past Medical History / Comment(s): diagnosed with liver damage from ETOH in (alcoholic liver dz,cirrhosis/ascities), past uti, scoliosis. pt stated at some point in time she had a small heart attack that was found on an ekg. "mini strokes", ascites and multi paracentesis, abdominal pain, gas pain, macrocytic anemia, essential tremors, varicose vein hemorrhage Last Myocardial Infarction Date:: unk History of Any Multi-Drug Resistant Organisms: None Reported Past Surgical History: Orthopedic Surgery, Tubal Ligation Additional Past Surgical History / Comment(s): ORIF rt tibia,laparoscopy, paracentesis, EGD, acites Past Anesthesia/Blood Transfusion Reactions: No Reported Reaction Additional Past Anesthesia/Blood Transfusion Reaction / Comm: pt has had previous platelet transfusions for paracentesis Past Psychological History: Anxiety, Depression Additional Psychological History / Comment(s): lives with spouse, drives, is independant Smoking Status: Former smoker Past Alcohol Use History: Daily Additional Past Alcohol Use History / Comment(s): started smoking 1973 and quit 2006 smoked 1ppd. pt stated used to be a daily drinker-quit the daily drinking 09-25-14 Past Drug Use History: Marijuana - Past Family History Father Family Medical History: Cancer Additional Family Medical History / Comment(s): dad is alive at age 94 has kidney cancer Mother Family Medical History: No Reported History Additional Family Medical History / Comment(s): at age 92. had scoliosis Medications and Allergies Home Medications Medication Instructions Recorded Confirmed Type Multivit with Calcium,Iron,Min 1 tab PO DAILY 09/25/14 06/15/20 History [Women's Daily Multivitamin] Magnesium Oxide [Mag-Ox] 400 mg PO DAILY 03/26/18 06/15/20 History Sertraline [Zoloft] 100 mg PO DAILY 03/26/18 06/15/20 History rOPINIRole HCL [Requip] 0.5 mg PO HS 03/26/18 06/15/20 History Metoprolol Tartrate [Lopressor] 25 mg PO BID #60 tab 03/28/18 06/15/20 Rx Furosemide [Lasix] 80 mg PO DAILY 05/09/18 06/15/20 History Spironolactone [Aldactone] 100 mg PO BID 05/09/18 06/15/20 History Calcium Carbonate [Calcium] 1,200 mg PO DAILY 09/28/18 06/15/20 History Omeprazole 20 mg PO DAILY PRN 09/28/18 06/15/20 History Cholecalciferol [Vitamin D3 (25 1,000 unit PO DAILY 12/16/19 06/15/20 History Mcg = 1000 Iu)] Cyanocobalamin (Vitamin B-12) 500 mcg PO DAILY 01/17/20 06/15/20 History [Vitamin B-12] Potassium Chloride ER [K-Dur 20] 40 meq PO BID 05/01/20 06/15/20 History Furosemide [Lasix] 40 mg PO HS 06/15/20 06/15/20 History Allergies Allergy/AdvReac Type Severity Reaction Status Date / Time No Known Allergies Allergy Verified 06/15/20 16:34 Physical Exam Vitals: Vital Signs Temp Pulse Pulse Pulse Resp BP BP 06/16/20 05:00 97.7 F 125 H 14 118/74 06/16/20 03:08 117 H 16 151/83 06/16/20 01:29 124 H 17 149/92 06/16/20 00:59 98.0 F 125 H 17 149/85 06/16/20 00:49 128 H 18 162/94 06/16/20 00:18 138 H 06/15/20 23:42 134 H 06/15/20 23:12 127 H 06/15/20 22:57 128 H 06/15/20 22:56 127 H 16 06/15/20 22:42 125 H 06/15/20 22:31 121 H 15 06/15/20 22:17 97.9 F 115 H 16 06/15/20 21:55 105 H 14 160/88 06/15/20 21:46 99 16 171/86 06/15/20 21:31 97 16 156/83 06/15/20 21:13 97.8 F 100 18 165/84 06/15/20 19:04 100.2 F H 112 H 18 135/82 06/15/20 17:16 100 18 138/84 06/15/20 15:44 100.8 F H 79 18 131/69 06/15/20 15:40 108 H 18 126/87 06/15/20 14:22 98.3 F 118 H 19 153/102 BP Pulse Ox 06/16/20 05:00 98 06/16/20 03:08 96 06/16/20 01:29 95 06/16/20 00:59 95 06/16/20 00:49 95 06/16/20 00:18 162/94 96 06/15/20 23:42 160/96 94 L 06/15/20 23:12 163/100 95 06/15/20 22:57 163/98 96 06/15/20 22:56 164/100 97 06/15/20 22:42 166/100 97 06/15/20 22:31 164/96 97 06/15/20 22:17 186/77 98 06/15/20 21:55 100 06/15/20 21:46 100 06/15/20 21:31 100 06/15/20 21:13 100 06/15/20 19:04 97 06/15/20 17:16 96 06/15/20 15:44 92 L 06/15/20 15:40 98 06/15/20 14:22 98 Intake and Output 06/15/20 06/16/20 06/16/20 22:59 06:59 14:59 Intake Total 300 443 Output Total 120 20 Balance 180 423 Intake: IV 300 Intake, IV Titration 160 Amount Lactated Ringers 1,000 ml 160 @ 20 mls/hr IV .Q24H [facility] Rx#:[id number] Oral 0 Blood Product 283 Ffp 24 Cpd Unit 283 [id number] Output: Drainage 20 Anterior Abdomen 20 Urine 20 Estimated Blood Loss 100 Other: Voiding Method Indwelling Catheter Weight 52 kg Results CBC & Chem 7: 06/16/20 05:43 06/16/20 05:45 Labs: Abnormal Lab Results - Last 24 Hours (Table) 06/15/20 06/15/20 06/15/20 Range/Units 14:40 14:48 14:48 Plt Count 79 L D (150-450) k/uL Neutrophils # 8.5 H (1.3-7.7) k/uL Lymphocytes # 0.7 L (1.0-4.8) k/uL Sodium 133 L (137-145) mmol/L Chloride 95 L (98-107) mmol/L BUN 19 H (7-17) mg/dL Glucose 149 H (74-99) mg/dL Total Bilirubin 1.6 H (0.2-1.3) mg/dL Urine Protein Trace H (Negative) Ur Leukocyte Esterase Small H (Negative) Urine WBC 19 H (0-5) /hpf Calcium Oxalate Crystal Few H (None) /hpf Hyaline Casts 113 H (0-2) /lpf Urine Mucus Many H (None) /hpf 06/16/20 Range/Units 05:43 Plt Count 68 L (150-450) k/uL Neutrophils # (1.3-7.7) k/uL Lymphocytes # (1.0-4.8) k/uL Sodium (137-145) mmol/L Chloride (98-107) mmol/L BUN (7-17) mg/dL Glucose (74-99) mg/dL Total Bilirubin (0.2-1.3) mg/dL Urine Protein (Negative) Ur Leukocyte Esterase (Negative) Urine WBC (0-5) /hpf Calcium Oxalate Crystal (None) /hpf Hyaline Casts (0-2) /lpf Urine Mucus (None) /hpf Microbiology - Last 24 Hours (Table) 06/15/20 14:48 Urine Culture - Preliminary Urine,Voided
[2020-06-17] MEDS: HYDROmorphone 1 MG/ML 1 ML SYRINGE IVP PRN ×3 (06:09→17:44)
[2020-06-17] MEDS: PANTOPRAZOLE 40 MG/10 ML VIAL IVP SCH (08:25)
[2020-06-17] MEDS: ENOXAPARIN 40 MG/0.4 ML SYRINGE SQ SCH (08:25)
[2020-06-17 10:00] LABS: Basophils % (A) 0 %; Eosinophils % (A) 1 %; HCT 29.4 % (34.0-46.0); HGB 10.3 gm/dL (11.4-16.0); Lymphocytes # (A) 0.4 k/uL (1.0-4.8); Lymphocytes % (A) 9 %; MCH 30.2 pg (25.0-35.0); MCHC 35.1 g/dL (31.0-37.0); MCV 86.1 fL (80.0-100.0); Mean Platelet Volume 8.2; Monocytes # (A) 0.5 k/uL (0-1.0); Monocytes % (A) 12 %; Neutrophils # (A) 3.5 k/uL (1.3-7.7); Neutrophils % (A) 77 %; RBC 3.41 m/uL (3.80-5.40); RDW 15.7 % (11.5-15.5); WBC 4.5 k/uL (3.8-10.6)
[2020-06-17] MEDS ORDERED: SODIUM CHLORIDE 0.9% 1,000 ML IV ONE (10:10)
[2020-06-17 10:24] LABS: African American GFR (CKD) 85 (>60 ml/min/1.73 sqM); Anion Gap 6 mmol/L; Blood Urea Nitrogen 34 mg/dL (7-17); Calcium 8.6 mg/dL (8.4-10.2); Carbon Dioxide 23 mmol/L (22-30); Chloride 105 mmol/L (98-107); Glucose 119 mg/dL (74-99); Non-African American GFR(CKD) 74 (>60 ml/min/1.73 sqM); Potassium 4.9 mmol/L (3.5-5.1); Sodium 134 mmol/L (137-145)
[2020-06-17 10:39] LABS: Platelet Count 94 k/uL (150-450)
[2020-06-17] MEDS ORDERED: NON FORMULARY DRUG (Omeprazole [Omeprazole] 20 MG Capsule.Dr) PO PRN (10:59)
--- NOTE | 2020-06-17 11:21 | P.PN ---
Subjective Progress Note Date: 06/17/20 CHIEF COMPLAINT: Abdominal pain HISTORY OF PRESENT ILLNESS: Patient is status post exploratory laparotomy, small bowel resection and repair of incarcerated ventral hernia for strangulated ventral hernia, small bowel obstruction and small bowel ischemia. Patient reports that her pain is better controlled today. She denies any nausea or vomiting. She had received 2 L fluid bolus yesterday for low urine output. Her urine is still dark and still on the lower side. She will receive another fluid bolus today. Afebrile. WBC 4.5 hemoglobin 10.3 platelets 94. Creatinine 0.84 Patient is scheduled for MRI of the liver regarding liver lesion ordered by GI service. PHYSICAL EXAM: VITAL SIGNS: Reviewed. GENERAL: Well-developed in no acute distress. HEENT: No sclera icterus. Extraocular movements grossly intact. Moist buccal mucosa. Head is atraumatic, normocephalic. ABDOMEN: Soft. Nondistended. Tenderness at incision site. Dressing clean dry and intact. PHILL drain serosanguineous output NEUROLOGIC: Alert and oriented. Cranial nerves II through XII grossly intact. ASSESSMENT: 1. strangulated ventral hernia, small bowel obstruction and small bowel ischemia status post exploratory laparotomy, small bowel resection and repair of incarcerated ventral hernia. Postop day #2 2. Liver lesion. Followed by GI service. Scheduled for MRI of the liver 3. History of liver cirrhosis and ascites requiring paracentesis in the past 4. Decreased urine output PLAN: -Continue IV fluids -Will give another 1 Liter IV fluid bolus -Continue to monitor urine output closely -Continue pain medication as needed -Encouraged patient to increase activity -Encouraged patient to use incentive spirometer Physician Scrap Drop Crane Operator note has been reviewed by physician. Signing provider agrees with the documented findings, assessment, and plan of care. Objective - Vital Signs Vital signs: Vital Signs Temp 98.0 F 06/17/20 10:11 Pulse 111 H 06/17/20 10:11 Resp 17 06/17/20 10:11 BP 118/66 06/17/20 10:11 Pulse Ox 95 06/17/20 10:11 Intake & Output 06/16/20 06/17/20 06/17/20 18:59 06:59 18:59 Intake Total 4125 1440 Output Total 300 315 Balance 3825 1125 Weight 52 kg Intake: Intake, IV Titration 4125 1440 Amount Lactated Ringers 1,000 ml 1125 1440 @ 125 mls/hr IV .Q8H [facility] Rx#:[id number] Sodium Chloride 0.9% 1, 1000 000 ml @ 999 mls/hr IV . Q1H1M ONE Rx#:[id number] Sodium Chloride 0.9% 2, 2000 000 ml @ 999 mls/hr IV . Q2H1M ONE Rx#:[id number] Output: Drainage 15 Anterior Abdomen 15 Urine 300 300 Uretheral (Olivas) 300 Other: Voiding Method Indwelling Catheter Indwelling Catheter - Labs CBC & Chem 7: 06/17/20 09:08 06/17/20 09:08 Labs: Abnormal Lab Results - Last 24 Hours (Table) 06/16/20 06/16/20 06/17/20 Range/Units 05:43 05:45 09:08 RBC (3.80-5.40) m/uL Hgb (11.4-16.0) gm/dL Hct (34.0-46.0) % RDW (11.5-15.5) % Plt Count (150-450) k/uL Lymphocytes # 0.4 L (1.0-4.8) k/uL Lymphocytes # (Manual) 0.29 L (1.0-4.8) k/uL Sodium 133 L 134 L (137-145) mmol/L BUN 27 H 34 H (7-17) mg/dL Glucose 165 H 119 H (74-99) mg/dL 06/17/20 Range/Units 09:08 RBC 3.41 L (3.80-5.40) m/uL Hgb 10.3 L (11.4-16.0) gm/dL Hct 29.4 L (34.0-46.0) % RDW 15.7 H (11.5-15.5) % Plt Count 94 L (150-450) k/uL Lymphocytes # 0.4 L (1.0-4.8) k/uL Lymphocytes # (Manual) (1.0-4.8) k/uL Sodium (137-145) mmol/L BUN (7-17) mg/dL Glucose (74-99) mg/dL Microbiology - Last 24 Hours (Table) 06/15/20 14:48 Urine Culture - Final Urine,Voided
[2020-06-17] MEDS: SERTRALINE 100 MG TAB PO SCH (12:06)
[2020-06-17] MEDS: CALCIUM CARBONATE 500 MG CHEWABLE PO SCH (12:06)
[2020-06-17] MEDS: CHOLECALCIFEROL 25 MCG (1000 IU) TABLET PO SCH (12:06)
[2020-06-17] MEDS: METOPROLOL TARTRATE 25 MG TAB PO SCH ×2 (12:07→20:46)
[2020-06-17] MEDS: SPIRONOLACTONE 25 MG TAB PO SCH ×2 (12:07→20:45)
[2020-06-17] MEDS: CYANOCOBALAMIN 500 MCG TAB PO SCH (12:07)
[2020-06-17] MEDS: MAGNESIUM OXIDE 400 MG TAB PO SCH (12:07)
--- NOTE | 2020-06-17 14:45 | P.PN ---
Subjective Progress Note Date: 06/17/20 Principal diagnosis: Liver lesion This is a pleasant 64-year-old white female who presented to the emergency department with a history of liver cirrhosis secondary to alcohol use and refractory ascites requiring paracentesis once every 2-3 weeks in outpatient basis, with complaints of abdominal pain with incarcerated umbilical hernia. He underwent exploratory laparotomy with small bowel resection and repair of the umbilical hernia by Dr. Paredes. In the emergency room the patient has CT of the abdomen and pelvis that showed a 4 cm lesion in the right lobe of the liver. Plan was to consider doing MRI of the liver which was ordered yesterday, however radiology states patient has 2 wait 6 weeks postoperatively. Patient states she's having a lot of surgical pain today, hence not passing any gas, and pain is also in her back. She denies any vomiting, but does have some nausea with moving. Objective - Vital Signs Vital signs: Vital Signs Temp 98.1 F 06/17/20 11:09 Pulse 115 H 06/17/20 11:09 Resp 18 06/17/20 11:09 BP 133/78 06/17/20 11:09 Pulse Ox 94 L 06/17/20 11:09 Intake & Output 06/16/20 06/17/20 06/17/20 18:59 06:59 18:59 Intake Total 4125 1440 Output Total 300 315 Balance 3825 1125 Weight 52 kg Intake: Intake, IV Titration 4125 1440 Amount Lactated Ringers 1,000 ml 1125 1440 @ 125 mls/hr IV .Q8H [facility] Rx#:[id number] Sodium Chloride 0.9% 1, 1000 000 ml @ 999 mls/hr IV . Q1H1M ONE Rx#:[id number] Sodium Chloride 0.9% 2, 2000 000 ml @ 999 mls/hr IV . Q2H1M ONE Rx#:[id number] Output: Drainage 15 Anterior Abdomen 15 Urine 300 300 Uretheral (Olivas) 300 Other: Voiding Method Indwelling Catheter Indwelling Catheter - Labs CBC & Chem 7: 06/17/20 09:08 06/17/20 09:08 Labs: Abnormal Lab Results - Last 24 Hours (Table) 06/17/20 06/17/20 Range/Units 09:08 09:08 RBC 3.41 L (3.80-5.40) m/uL Hgb 10.3 L (11.4-16.0) gm/dL Hct 29.4 L (34.0-46.0) % RDW 15.7 H (11.5-15.5) % Plt Count 94 L (150-450) k/uL Lymphocytes # 0.4 L (1.0-4.8) k/uL Sodium 134 L (137-145) mmol/L BUN 34 H (7-17) mg/dL Glucose 119 H (74-99) mg/dL Microbiology - Last 24 Hours (Table) 06/15/20 14:48 Urine Culture - Final Urine,Voided Assessment and Plan (1) Hepatic lesion Narrative/Plan: Hepatic lesion noted on computed tomography scan of the abdomen that was done in the emergency room. Prior ultrasound of the abdomen done in November 2019 did not show any evidence of liver lesions. The lesion measured about 4 cm in the right lobe of the liver. Rule out hepatocellular carcinoma. Oncology will be consulted for further recommendations. Current Visit: Yes Status: Acute Code(s): K76.9 - LIVER DISEASE, UNSPECIFIED SNOMED Code(s): 051076824 (2) Incarcerated hernia Narrative/Plan: Patient is status post exploratory laparotomy with small bowel resection and hernia repair by Dr. Paredes Current Visit: Yes Status: Acute Code(s): K46.0 - UNSP ABDOMINAL HERNIA WITH OBSTRUCTION, WITHOUT GANGRENE SNOMED Code(s): 17545804 (3) Alcoholic cirrhosis Narrative/Plan: Patient has a history of alcoholic cirrhosis of the liver with portal hypertension and refractory ascites requiring large volume paracentesis every 2 weeks on an outpatient basis. She is maintained on Lasix and Aldactone on an outpatient basis. Diuretics were currently on hold, will reinitiate today. Current Visit: No Status: Acute Code(s): K70.30 - ALCOHOLIC CIRRHOSIS OF LIVER WITHOUT ASCITES SNOMED Code(s): 578465573 (4) Ascites Current Visit: No Status: Acute Code(s): R18.8 - OTHER ASCITES SNOMED Code(s): 789889423 Plan: 1. Symptomatic and supportive care 2. L5 fetoprotein reviewed 3. MRI ordered however unable to perform due to surgery 4. Resume Aldactone and Lasix 40 mg daily 5. Continue pain management per surgical services 6. Consult oncology for further recommendations for liver lesion Dr. Jose G Harkins I agree with the dictator's note, documented as a scribe by Leny Scanlon.
[2020-06-17] MEDS: LACTATED RINGERS 1,000 ML IV SCH (17:53)
--- NOTE | 2020-06-17 22:14 | P.PN ---
Progress Note - Text Progress Note Date: 06/17/20 - Chief Complaint Abdominal pain History of presenting complaint: This is a pleasant 64-year-old patient of Dr. Susana Arreguin. She also follows with manager application Dr. Jose G Harkins. Chronic stable medical conditions include hypertension, hyperlipidemia, scoliosis, anxiety, alcohol-induced cirrhosis. Patient stopped drinking in 2014. Only drinks occasionally. Patient's gets his repeated scheduled paracentesis. Patient now presented with increasing abdominal pain for 3 days. Nausea vomiting. For one day. No fever no chills. Appetite had been fair. Normally has about 3 bowel movements a day. Patient yesterday taken to the operating room was found to have a strangulate and ventral hernia with small bowel ischemia with obstruction. Small bowel resection with repair of the ventral hernia was carried out. Today: Sitting up. Comfortable. Has not positive flatus. Has operative site pain. No nausea vomiting. Review of systems: Was done for constitutional, cardiovascular, GI, pulmonary. relevant finding as above Active Medications Calcium Carbonate/Glycine (Calcium Carbonate 500 Mg Chewable) 1,000 mg PO DAILY [facility] Last Admin: 06/17/20 12:06 Dose: 1,000 mg Documented by: Cholecalciferol (Cholecalciferol 25 Mcg (1000 Iu) Tablet) 25 mcg PO DAILY [facility] Last Admin: 06/17/20 12:06 Dose: 25 mcg Documented by: Cyanocobalamin (Cyanocobalamin 500 Mcg Tab) 500 mcg PO DAILY [facility] Last Admin: 06/17/20 12:07 Dose: 500 mcg Documented by: Enoxaparin Sodium (Enoxaparin 40 Mg/0.4 Ml Syringe) 40 mg SQ DAILY [facility] Last Admin: 06/17/20 08:25 Dose: 40 mg Documented by: Furosemide (Furosemide 40 Mg Tab) 40 mg PO DAILY [facility] Hydromorphone HCl (Hydromorphone 1 Mg/Ml 1 Ml Syringe) 1 mg IVP Q3HR PRN PRN Reason: Moderate to Severe Pain Last Admin: 06/17/20 17:44 Dose: 1 mg Documented by: Lactated Ringer's (Lactated Ringers) 1,000 mls @ 125 mls/hr IV .Q8H [facility] Last Admin: 06/17/20 17:53 Dose: 125 mls/hr Documented by: Magnesium Oxide (Magnesium Oxide 400 Mg Tab) 400 mg PO DAILY [facility] Last Admin: 06/17/20 12:07 Dose: 400 mg Documented by: Metoprolol Tartrate (Metoprolol Tartrate 25 Mg Tab) 25 mg PO BID [facility] Last Admin: 06/17/20 20:46 Dose: 25 mg Documented by: Morphine Sulfate (Morphine Sulfate 4 Mg/Ml Syringe) 4 mg IV Q4HR PRN PRN Reason: Severe Pain Naloxone HCl (Naloxone 0.4 Mg/Ml 1 Ml Vial) 0.2 mg IV Q2M PRN PRN Reason: Opioid Reversal Ondansetron HCl (Ondansetron 4 Mg/2 Ml Vial) 4 mg IVP Q8HR PRN PRN Reason: Nausea And Vomiting Last Admin: 06/17/20 12:59 Dose: 4 mg Documented by: Pantoprazole Sodium (Pantoprazole 40 Mg/10 Ml Vial) 40 mg IVP DAILY [facility] Last Admin: 06/17/20 08:25 Dose: 40 mg Documented by: Ropinirole HCl (Ropinirole Hcl 0.25 Mg Tab) 0.5 mg PO HS [facility] Last Admin: 06/17/20 20:45 Dose: 0.5 mg Documented by: Sertraline HCl (Sertraline 100 Mg Tab) 100 mg PO DAILY [facility] Last Admin: 06/17/20 12:06 Dose: 100 mg Documented by: Spironolactone (Spironolactone 25 Mg Tab) 100 mg PO BID [facility] Last Admin: 06/17/20 20:45 Dose: 100 mg Documented by: Past medical history to include: Ascites, cirrhosis from alcoholism, secondary bone portal hypertension, essential hypertension, hyperlipidemia, scoliosis, hepatosplenomegaly, anxiety Social history: Patient smoked a pack for 33 years. Stopped in 2006. Patient is drinking excessive alcohol 2 2014. Physical examination: VITAL SIGNS: 98, 111, 17, 118/66, 95% room air GENERAL: Laying in bed, awake EYES: Pupils equal. Conjunctiva normal. HEENT: External appearance of nose and ears normal, oral cavity grossly normal. NECK: JVD not raised; masses not palpable. HEART: First and second heart sounds are normal; no edema. LUNGS: Respiratory rate normal; decreased breath sounds. ABDOMEN: Soft, mild tenderness, PHILL drain, liver spleen not palpable, no masses palpable. Bowel sounds present PSYCH: Alert and oriented x3; mood and affect normal. INVESTIGATIONS, reviewed in the clinical context: June 17: WBC 4.5 hemoglobin 10.3 platelets potassium 4.9 creatinine 0.84 WBC 7.3 hemoglobin 13 platelets 68 potassium 5 creatinine 0.88 Coronavirus [PCF]-not detected Computed tomography scan of the abdomen: Cirrhotic liver. Splenomegaly. Changes of portal venous hypertension. Incarcerated of medical hernia containing small bowel with evidence of small bowel obstruction. Gallstones Assessment and plan: -Incarcerated ventral hernia of the abdominal wall with small bowel obstruction Status post surgical repair and resection of small bowel -Ascites secondary to cirrhosis Continue with Lasix and Aldactone -Alcohol-induced cirrhosis Fluid restriction and low-salt diet -Secondary portal hypertension from cirrhosis Follow clinically -Essential hypertension Continue Lopressor -Chronic scoliosis Pain medications if needed -Hepatosplenomegaly from cirrhosis Follow clinically -Thrombocytopenia chronic from cirrhosis Follow platelets Patient home medications resumed. Including Aldactone. Patient getting gentle hydration. Hold off Lasix for now. Patient remains nothing by mouth. Encouraged to be up in a chair Thank you Dr. Paredes
[2020-06-18] MEDS: HYDROmorphone 1 MG/ML 1 ML SYRINGE IVP PRN ×2 (04:39→09:10)
[2020-06-18] MEDS: LACTATED RINGERS 1,000 ML IV SCH ×4 (04:41→19:16)
[2020-06-18] MEDS: SPIRONOLACTONE 25 MG TAB PO SCH ×2 (09:11→20:24)
[2020-06-18] MEDS: METOPROLOL TARTRATE 25 MG TAB PO SCH ×2 (09:12→20:24)
[2020-06-18] MEDS: CYANOCOBALAMIN 500 MCG TAB PO SCH (09:12)
[2020-06-18] MEDS: CHOLECALCIFEROL 25 MCG (1000 IU) TABLET PO SCH (09:12)
[2020-06-18] MEDS: PANTOPRAZOLE 40 MG/10 ML VIAL IVP SCH (09:12)
[2020-06-18] MEDS: CALCIUM CARBONATE 500 MG CHEWABLE PO SCH (09:12)
[2020-06-18] MEDS: MAGNESIUM OXIDE 400 MG TAB PO SCH (09:12)
[2020-06-18] MEDS: FUROSEMIDE 40 MG TAB PO SCH (09:12)
[2020-06-18] MEDS: ENOXAPARIN 40 MG/0.4 ML SYRINGE SQ SCH (09:12)
[2020-06-18] MEDS: SERTRALINE 100 MG TAB PO SCH (09:13)
--- NOTE | 2020-06-18 11:19 | P.PN ---
Subjective Progress Note Date: 06/18/20 CHIEF COMPLAINT: Abdominal pain HISTORY OF PRESENT ILLNESS: Patient is status post exploratory laparotomy, small bowel resection and repair of incarcerated ventral hernia for strangulated ventral hernia, small bowel obstruction and small bowel ischemia. Patient reports abdominal pain. She is requiring the IV pain medication. She reports that her pain is controlled with meds. Denies any vomiting. She has had nausea. Denies any flatus or BM. She has had some increase in her abdominal distention. Her urine output is improving. Patient has had 1200 mL output of urine in 24 hours. Afebrile. Heart rate is in the 90s. No longer tachycardic. WBC 6.1 Hgb 10.6 platelets 154 sodium 135 BUN 33 creatinine 0.73. GI service had ordered an MRI of the liver to follow-up on a liver lesion. Due to p joseline's surgery MRI cannot be completed for 6 weeks. GI service and medicine service had restarted patient's diuretics. Patient seen by oncology service regarding liver lesion. Patient seen and examined with Dr. Paredes PHYSICAL EXAM: VITAL SIGNS: Reviewed. GENERAL: Well-developed in no acute distress. HEENT: No sclera icterus. Extraocular movements grossly intact. Moist buccal mucosa. Head is atraumatic, normocephalic. ABDOMEN: abdomen is more distended. Tenderness at incision site. There is some serosanguineous drainage noted on the dressing. Otherwise dressing incision is clean dry and intact. Patient does have PHILL drain with serosanguineous fluid. Patient does have a right inguinal hernia and is soft and nontender NEUROLOGIC: Alert and oriented. Cranial nerves II through XII grossly intact. ASSESSMENT: 1. strangulated ventral hernia, small bowel obstruction and small bowel ischemia status post exploratory laparotomy, small bowel resection and repair of incarcerated ventral hernia. Postop day #3 2. Liver lesion. Followed by GI service. 3. History of liver cirrhosis and ascites requiring paracentesis every 1-2 weeks 4. Decreased urine output improving PLAN: -We'll order a paracentesis for abdominal ascites -Continue IV fluids -Continue to monitor urine output closely -Continue pain medication as needed -Encouraged patient to increase activity -Encouraged patient to use incentive spirometer -She had prophylaxis Protonix and DVT prophylaxis Lovenox Physician Full Decator Operator note has been reviewed by physician. Signing provider agrees with the documented findings, assessment, and plan of care. Objective - Vital Signs Vital signs: Vital Signs Temp 97.7 F 06/18/20 07:18 Pulse 90 06/18/20 10:36 Resp 17 06/18/20 10:36 BP 111/73 06/18/20 07:18 Pulse Ox 95 06/18/20 09:10 Intake & Output 06/17/20 06/18/20 06/18/20 18:59 06:59 18:59 Intake Total 2500 1250 Output Total 400 500 Balance 2100 750 Intake: IV 1250 Lactated Ringers 1,000 ml 1250 @ 125 mls/hr IV .Q8H NETO Rx#:[id number] Intake, IV Titration 2500 Amount Lactated Ringers 1,000 ml 1500 @ 125 mls/hr IV .Q8H NETO Rx#:[id number] Sodium Chloride 0.9% 1, 1000 000 ml @ 999 mls/hr IV . Q1H1M ONE Rx#:[id number] Output: Urine 400 500 Uretheral (Olivas) 500 Other: Voiding Method Indwelling Catheter Indwelling Catheter Indwelling Catheter - Labs CBC & Chem 7: 06/18/20 10:52 06/18/20 10:52
[2020-06-18 11:45] LABS: Anisocytosis Slight; Basophils % (A) 0 %; Eosinophils # (A) 0.1 k/uL (0-0.7); Eosinophils % (A) 1 %; HCT 33.2 % (34.0-46.0); HGB 10.6 gm/dL (11.4-16.0); Lymphocytes # (A) 0.3 k/uL (1.0-4.8); Lymphocytes % (A) 5 %; MCH 28.3 pg (25.0-35.0); MCHC 31.9 g/dL (31.0-37.0); MCV 88.6 fL (80.0-100.0); Mean Platelet Volume 7.6; Monocytes # (A) 0.6 k/uL (0-1.0); Monocytes % (A) 10 %; Neutrophils % (A) 82 %; RBC 3.75 m/uL (3.80-5.40); RDW 16.1 % (11.5-15.5); WBC 6.1 k/uL (3.8-10.6)
[2020-06-18 11:51] LABS: Platelet Count 154 k/uL (150-450)
--- NOTE | 2020-06-18 11:52 | P.CONS ---
History of Present Illness - Reason for Consult Consult date: 06/18/20 liver lesion Requesting physician: Leny Wade - Chief Complaint hernia repair - History of Present Illness Mrs. chahal is a 64-year-old male patient we have been asked to see in regards to a liver lesion. She is currently admitted for incarcerated hernia re pair, she is postop. Her abdomen as sensitive, epigastric area is moderately distended. Patient has a history of EtOH liver disease, following with Dr. Harkins, from this medical record at least back to 2019, patient reports history of cirrhosis greater than 5 years. She still drinks occasionally. She has intermittent paracentesis. CT AP is showing a 4 cm lesion in the right lobe of the liver that is new. AFP was 5.1. Review of Systems 14 point review of systems is negative except as stated in HPI Past Medical History Past Medical History: CVA/TIA, Hyperlipidemia, Hypertension, Liver Disease, Memory Impairment, Myocardial Infarction (AL) Additional Past Medical History / Comment(s): diagnosed with liver damage from ETOH in (alcoholic liver dz,cirrhosis/ascities), past uti, scoliosis. pt stated at some point in time she had a small heart attack that was found on an ekg. "mini strokes", ascites and multi paracentesis, abdominal pain, gas pain, macrocytic anemia, essential tremors, varicose vein hemorrhage Last Myocardial Infarction Date:: unk History of Any Multi-Drug Resistant Organisms: None Reported Past Surgical History: Orthopedic Surgery, Tubal Ligation Additional Past Surgical History / Comment(s): ORIF rt tibia,laparoscopy, paracentesis, EGD, acites Past Anesthesia/Blood Transfusion Reactions: No Reported Reaction Additional Past Anesthesia/Blood Transfusion Reaction / Comm: pt has had previous platelet transfusions for paracentesis Past Psychological History: Anxiety, Depression Additional Psychological History / Comment(s): lives with spouse, drives, is independant Smoking Status: Former smoker Past Alcohol Use History: Daily Additional Past Alcohol Use History / Comment(s): started smoking 1973 and quit 2006 smoked 1ppd. pt stated used to be a daily drinker-quit the daily drinking Past Drug Use History: Marijuana - Past Family History Father Family Medical History: Cancer Additional Family Medical History / Comment(s): dad is alive at age 94 has kidney cancer Mother Family Medical History: No Reported History Additional Family Medical History / Comment(s): at age 92. had scoliosis Medications and Allergies Home Medications Medication Instructions Recorded Confirmed Type Multivit with Calcium,Iron,Min 1 tab PO DAILY 09/25/14 06/15/20 History [Women's Daily Multivitamin] Magnesium Oxide [Mag-Ox] 400 mg PO DAILY 03/26/18 06/15/20 History Sertraline [Zoloft] 100 mg PO DAILY 03/26/18 06/15/20 History rOPINIRole HCL [Requip] 0.5 mg PO HS 03/26/18 06/15/20 History Metoprolol Tartrate [Lopressor] 25 mg PO BID #60 tab 03/28/18 06/15/20 Rx Furosemide [Lasix] 80 mg PO DAILY 05/09/18 06/15/20 History Spironolactone [Aldactone] 100 mg PO BID 05/09/18 06/15/20 History Calcium Carbonate [Calcium] 1,200 mg PO DAILY 09/28/18 06/15/20 History Omeprazole 20 mg PO DAILY PRN 09/28/18 06/15/20 History Cholecalciferol [Vitamin D3 (25 1,000 unit PO DAILY 12/16/19 06/15/20 History Mcg = 1000 Iu)] Cyanocobalamin (Vitamin B-12) 500 mcg PO DAILY 01/17/20 06/15/20 History [Vitamin B-12] Potassium Chloride ER [K-Dur 20] 40 meq PO BID 05/01/20 06/15/20 History Furosemide [Lasix] 40 mg PO HS 06/15/20 06/15/20 History Allergies Allergy/AdvReac Type Severity Reaction Status Date / Time No Known Allergies Allergy Verified 06/15/20 16:34 Physical Exam Vitals: Vital Signs Temp Pulse Resp BP BP Pulse Ox 06/18/20 10:36 90 17 06/18/20 09:10 95 06/18/20 07:18 97.7 F 90 17 111/73 95 06/18/20 05:00 97.8 F 88 16 119/73 91 L 06/17/20 20:34 98.2 F 96 18 127/75 93 L Intake and Output 06/17/20 06/18/20 06/18/20 22:59 06:59 14:59 Intake Total 2500 1250 Output Total 400 500 Balance 2100 750 Intake: IV 1250 Lactated Ringers 1,000 ml 1250 @ 125 mls/hr IV .Q8H NETO Rx#:[id number] Intake, IV Titration 2500 Amount Lactated Ringers 1,000 ml 1500 @ 125 mls/hr IV .Q8H NETO Rx#:[id number] Sodium Chloride 0.9% 1, 1000 000 ml @ 999 mls/hr IV . Q1H1M ONE Rx#:[id number] Output: Urine 400 500 Uretheral (Olivas) 500 Other: Voiding Method Indwelling Catheter Indwelling Catheter - Constitutional Patient looks older than stated age. She is lethargic, status post pain medication administration General appearance: thin - EENT Eyes: anicteric sclerae, EOMI ENT: hearing grossly normal, normal oropharynx - Neck Neck: no lymphadenopathy - Respiratory Respiratory: bilateral: diminished - Cardiovascular Rhythm: regular Heart sounds: normal: S1, S2 Abnormal Heart Sounds: no systolic murmur, no diastolic murmur, no rub, no S3 Gallop, no S4 Gallop, no click, no other leg Peripheral Edema: bilateral: None - Gastrointestinal Midline incision gonzalez are intact, abdomen is firm, moderate tenderness but nothing realistic. No bruising or bleeding noted at this time. Distant, hyperactive bowel sounds General gastrointestinal: distended, splenomegaly - Neurologic Neurologic: CNII-XII intact - Musculoskeletal Musculoskeletal: strength equal bilaterally - Psychiatric Patient is lethargic, drifts off to sleep during conversation Results CBC & Chem 7: 06/17/20 09:08 06/17/20 09:08 CT scan - abdomen: report reviewed CT scan - pelvis: report reviewed Assessment and Plan (1) Hepatic lesion Narrative/Plan: More detailed imaging of the liver to further define the lesion is recommended. Agree with MRI of the liver, hopefully can be performed. Based on how the mass appears on MRI, patient would be recommended for biopsy. X There were no other unusual lesions noted on CT AP. AFP 5.1. Dr. Domingo did discuss with the patient the high risk for hepatocellular carcinoma in patient's with chronic liver disease. Current Visit: Yes Status: Acute Priority: High Code(s): K76.9 - LIVER DISEASE, UNSPECIFIED SNOMED Code(s): 140225781 Plan: Doctor attests: I performed a history and physical examination of this patient, developed impression and plan of care. Discussed with dictator. I agree with dictators note, documented as a scribe.
[2020-06-18 12:21] LABS: African American GFR (CKD) >90 (>60 ml/min/1.73 sqM); Anion Gap 4 mmol/L; Blood Urea Nitrogen 33 mg/dL (7-17); Calcium 9.2 mg/dL (8.4-10.2); Carbon Dioxide 23 mmol/L (22-30); Chloride 108 mmol/L (98-107); Glucose 114 mg/dL (74-99); Non-African American GFR(CKD) 88 (>60 ml/min/1.73 sqM); Potassium 4.9 mmol/L (3.5-5.1); Sodium 135 mmol/L (137-145)
[2020-06-18 14:47] LABS: INR 1.1 (<1.2); Prothrombin Time 11.7 sec (9.0-12.0)
--- NOTE | 2020-06-18 15:21 | P.PN ---
Subjective Progress Note Date: 06/18/20 Principal diagnosis: Liver lesion This is a pleasant 64-year-old white female who presented to the emergency department with a history of liver cirrhosis secondary to alcohol use and refractory ascites requiring paracentesis once every 2-3 weeks in outpatient basis, with complaints of abdominal pain with incarcerated umbilical hernia. He underwent exploratory laparotomy with small bowel resection and repair of the umbilical hernia by Dr. Paredes. In the emergency room the patient has CT of the abdomen and pelvis that showed a 4 cm lesion in the right lobe of the liver. Plan was to consider doing MRI of the liver which was ordered, however radiology states patient has 2 wait 6 weeks postoperatively. Oncology was consulted. Patient states abdominal pain is slightly better. She is on ice chips. She denies any nausea or vomiting. Her abdomen is slightly more dis tended today than yesterday. Surgical services ordering paracentesis, cytology will be added. Objective - Vital Signs Vital signs: Vital Signs Temp 97.7 F 06/18/20 07:18 Pulse 90 06/18/20 10:36 Resp 17 06/18/20 10:36 BP 111/73 06/18/20 07:18 Pulse Ox 95 06/18/20 09:10 Intake & Output 06/17/20 06/18/20 06/18/20 18:59 06:59 18:59 Intake Total 2500 1250 Output Total 400 500 Balance 2100 750 Intake: IV 1250 Lactated Ringers 1,000 ml 1250 @ 125 mls/hr IV .Q8H NETO Rx#:[id number] Intake, IV Titration 2500 Amount Lactated Ringers 1,000 ml 1500 @ 125 mls/hr IV .Q8H NETO Rx#:[id number] Sodium Chloride 0.9% 1, 1000 000 ml @ 999 mls/hr IV . Q1H1M ONE Rx#:[id number] Output: Urine 400 500 Uretheral (Olivas) 500 Other: Voiding Method Indwelling Catheter Indwelling Catheter Indwelling Catheter - Exam General appearance: The patient is alert, oriented, appears in no acute distress. HET: Head is normocephalic and atraumatic. Conjunctiva pink. Sclera anicteric. Neck: Supple without lymphadenopathy. Abdomen: Soft, tender, distended with surgical dressing in palce, No guarding or rigidity. Extremities: Normal skin color and turgor. No pedal edema Skin: No rashes, no jaundice Neurological: No focal deficits. Alert and oriented 3. - Labs CBC & Chem 7: 06/18/20 10:52 06/18/20 10:52 Labs: Abnormal Lab Results - Last 24 Hours (Table) 06/18/20 Range/Units 10:52 RBC 3.75 L (3.80-5.40) m/uL Hgb 10.6 L (11.4-16.0) gm/dL Hct 33.2 L (34.0-46.0) % RDW 16.1 H (11.5-15.5) % Lymphocytes # 0.3 L (1.0-4.8) k/uL Assessment and Plan (1) Hepatic lesion Narrative/Plan: Hepatic lesion noted on computed tomography scan of the abdomen that was done in the emergency room. Prior ultrasound of the abdomen done in November 2019 did not show any evidence of liver lesions. The lesion measured about 4 cm in the right lobe of the liver. Rule out hepatocellular carcinoma. Oncology has been consulted. Paracentesis ordered with cytology and fluid studies. Current Visit: Yes Status: Acute Priority: High Code(s): K76.9 - LIVER DISEASE, UNSPECIFIED SNOMED Code(s): 479266641 (2) Incarcerated hernia Narrative/Plan: Patient is status post exploratory laparotomy with small bowel resection and hernia repair by Dr. Paredes Current Visit: Yes Status: Acute Code(s): K46.0 - UNSP ABDOMINAL HERNIA WITH OBSTRUCTION, WITHOUT GANGRENE SNOMED Code(s): 29719190 (3) Alcoholic cirrhosis Narrative/Plan: Patient has a history of alcoholic cirrhosis of the liver with portal hypertension and refractory ascites requiring large volume paracentesis every 2 weeks on an outpatient basis. She is maintained on Lasix and Aldactone on an outpatient basis. Diuretics were currently on hold, will reinitiate today. Current Visit: No Status: Acute Code(s): K70.30 - ALCOHOLIC CIRRHOSIS OF LIVER WITHOUT ASCITES SNOMED Code(s): 130693224 (4) Ascites Current Visit: No Status: Acute Code(s): R18.8 - OTHER ASCITES SNOMED Code(s): 722963014 Plan: 1. Symptomatic and supportive care 2. Alpha protein ordered, normal 3. MRI ordered however unable to perform due to surgery 4. Resume Aldactone and Lasix 40 mg daily 5. Continue pain management per surgical services 6. Consult oncology for further recommendations for liver lesion 7. Paracentesis ordered with cytology and fluid studies Dr. Jose G Harkins I agree with the dictator's note, documented as a scribe by Leny Scanlon.
--- NOTE | 2020-06-18 16:41 | P.PCN ---
Date of Procedure: 06/18/20 Preoperative Diagnosis: ascites Procedure(s) Performed: paracentesis Anesthesia: local Estimated Blood Loss (ml): 0 Pathology: other (30 cc) Operative Findings: serous sanguinous fluid
[2020-06-18] MEDS: ALBUMIN HUMAN 25% 50 ML in EMPTY BAG 1 BAG IVPB SCH ×2 (19:15→19:17)
--- NOTE | 2020-06-18 22:18 | P.PN ---
Progress Note - Text Progress Note Date: 06/18/20 - Chief Complaint Abdominal pain History of presenting complaint: This is a pleasant 64-year-old patient of Dr. Susana Arreguin. She also follows with repacker Dr. Jose G Harkins. Chronic stable medical conditions include hypertension, hyperlipidemia, scoliosis, anxiety, alcohol-induced cirrhosis. Patient stopped drinking in 2014. Only drinks occasionally. Patient's gets his repeated scheduled paracentesis. Patient now presented with increasing abdominal pain for 3 days. Nausea vomiting. For one day. No fever no chills. Appetite had been fair. Normally has about 3 bowel movements a day. Patient yesterday taken to the operating room was found to have a strangulate and ventral hernia with small bowel ischemia with obstruction. Small bowel resection with repair of the ventral hernia was carried out. Today: Laying in bed. Tired. No flatus. Abdominal pain. Review of systems: Was done for constitutional, cardiovascular, GI, pulmonary. relevant finding as above Active Medications Calcium Carbonate/Glycine (Calcium Carbonate 500 Mg Chewable) 1,000 mg PO DAILY [facility] Last Admin: 06/18/20 09:12 Dose: 1,000 mg Documented by: Cholecalciferol (Cholecalciferol 25 Mcg (1000 Iu) Tablet) 25 mcg PO DAILY [facility] Last Admin: 06/18/20 09:12 Dose: 25 mcg Documented by: Cyanocobalamin (Cyanocobalamin 500 Mcg Tab) 500 mcg PO DAILY [facility] Last Admin: 06/18/20 09:12 Dose: 500 mcg Documented by: Enoxaparin Sodium (Enoxaparin 40 Mg/0.4 Ml Syringe) 40 mg SQ DAILY [facility] Last Admin: 06/18/20 09:12 Dose: 40 mg Documented by: Furosemide (Furosemide 40 Mg Tab) 40 mg PO DAILY [facility] Last Admin: 06/18/20 09:12 Dose: 40 mg Documented by: Hydromorphone HCl (Hydromorphone 1 Mg/Ml 1 Ml Syringe) 1 mg IVP Q3HR PRN PRN Reason: Moderate to Severe Pain Last Admin: 06/18/20 09:10 Dose: 1 mg Documented by: Lactated Ringer's (Lactated Ringers) 1,000 mls @ 125 mls/hr IV .Q8H [facility] Last Admin: 06/18/20 19:16 Dose: 125 mls/hr Documented by: Magnesium Oxide (Magnesium Oxide 400 Mg Tab) 400 mg PO DAILY [facility] Last Admin: 06/18/20 09:12 Dose: 400 mg Documented by: Metoprolol Tartrate (Metoprolol Tartrate 25 Mg Tab) 25 mg PO BID [facility] Last Admin: 06/18/20 20:24 Dose: 25 mg Documented by: Morphine Sulfate (Morphine Sulfate 4 Mg/Ml Syringe) 4 mg IV Q4HR PRN PRN Reason: Severe Pain Naloxone HCl (Naloxone 0.4 Mg/Ml 1 Ml Vial) 0.2 mg IV Q2M PRN PRN Reason: Opioid Reversal Ondansetron HCl (Ondansetron 4 Mg/2 Ml Vial) 4 mg IVP Q8HR PRN PRN Reason: Nausea And Vomiting Last Admin: 06/17/20 12:59 Dose: 4 mg Documented by: Pantoprazole Sodium (Pantoprazole 40 Mg/10 Ml Vial) 40 mg IVP DAILY [facility] Last Admin: 06/18/20 09:12 Dose: 40 mg Documented by: Ropinirole HCl (Ropinirole Hcl 0.25 Mg Tab) 0.5 mg PO HS [facility] Last Admin: 06/18/20 20:24 Dose: 0.5 mg Documented by: Sertraline HCl (Sertraline 100 Mg Tab) 100 mg PO DAILY [facility] Last Admin: 06/18/20 09:13 Dose: 100 mg Documented by: Spironolactone (Spironolactone 25 Mg Tab) 100 mg PO BID [facility] Last Admin: 06/18/20 20:24 Dose: 100 mg Documented by: Past medical history to include: Ascites, cirrhosis from alcoholism, secondary bone portal hypertension, essential hypertension, hyperlipidemia, scoliosis, hepatosplenomegaly, anxiety Social history: Patient smoked a pack for 33 years. Stopped in 2006. Patient is drinking excessive alcohol 2 2014. Physical examination: VITAL SIGNS: 97.4, 104, 17, 114/74, 95% on 2 L GENERAL: Laying in bed, tired EYES: Pupils equal. Conjunctiva normal. HEENT: External appearance of nose and ears normal, oral cavity grossly normal. NECK: JVD not raised; masses not palpable. HEART: First and second heart sounds are normal; no edema. LUNGS: Respiratory rate normal; decreased breath sounds. ABDOMEN: Soft, mild tenderness, PHILL drain, liver spleen not palpable, no masses palpable. Bowel sounds present PSYCH: Alert and oriented x3; mood and affect normal. INVESTIGATIONS, reviewed in the clinical context: June 18: WBC 6.1 hemoglobin 10.6 potassium 4.9 creatinine 0.73 June 17: WBC 4.5 hemoglobin 10.3 platelets potassium 4.9 creatinine 0.84 WBC 7.3 hemoglobin 13 platelets 68 potassium 5 creatinine 0.88 Coronavirus [PCF]-not detected Computed tomography scan of the abdomen: Cirrhotic liver. Splenomegaly. Changes of portal venous hypertension. Incarcerated of medical hernia containing small bowel with evidence of small bowel obstruction. Gallstones Assessment and plan: -Incarcerated ventral hernia of the abdominal wall with small bowel obstruction Status post surgical repair and resection of small bowel -Ascites secondary to cirrhosis Continue with Lasix and Aldactone -Alcohol-induced cirrhosis Fluid restriction and low-salt diet -Secondary portal hypertension from cirrhosis Follow clinically -Essential hypertension Continue Lopressor -Chronic scoliosis Pain medications if needed -Hepatosplenomegaly from cirrhosis Follow clinically -Thrombocytopenia chronic from cirrhosis Follow platelets Patient remains nothing by mouth. Ordered chewing gum. Up in chair as tolerated. Thank you Dr. Paredes
[2020-06-19 00:45] LABS: Total Protein, Body Fluid 1590 mg/dL
[2020-06-19 01:41] LABS: Albumin, Fluid Source Peritoneal Fluid
[2020-06-19] MEDS: LACTATED RINGERS 1,000 ML IV SCH ×2 (02:45→14:37)
[2020-06-19 05:56] LABS: African American GFR (CKD) >90 (>60 ml/min/1.73 sqM); Anion Gap 8 mmol/L; Blood Urea Nitrogen 29 mg/dL (7-17); Calcium 9.3 mg/dL (8.4-10.2); Carbon Dioxide 26 mmol/L (22-30); Chloride 103 mmol/L (98-107); Glucose 96 mg/dL (74-99); Non-African American GFR(CKD) >90 (>60 ml/min/1.73 sqM); Sodium 137 mmol/L (137-145)
[2020-06-19 05:57] LABS: Anisocytosis Slight; Basophils % (A) 0 %; Eosinophils % (A) 1 %; HCT 33.4 % (34.0-46.0); HGB 10.4 gm/dL (11.4-16.0); Lymphocytes # (A) 0.4 k/uL (1.0-4.8); Lymphocytes % (A) 7 %; MCH 27.7 pg (25.0-35.0); MCV 89.3 fL (80.0-100.0); Mean Platelet Volume 7.5; Monocytes # (A) 0.5 k/uL (0-1.0); Monocytes % (A) 10 %; Neutrophils # (A) 4.1 k/uL (1.3-7.7); Neutrophils % (A) 80 %; Platelet Count 121 k/uL (150-450); RBC 3.74 m/uL (3.80-5.40); RDW 16.1 % (11.5-15.5); WBC 5.2 k/uL (3.8-10.6)
[2020-06-19] MEDS: CHOLECALCIFEROL 25 MCG (1000 IU) TABLET PO SCH (08:09)
[2020-06-19] MEDS: MAGNESIUM OXIDE 400 MG TAB PO SCH (08:09)
[2020-06-19] MEDS: PANTOPRAZOLE 40 MG/10 ML VIAL IVP SCH (08:09)
[2020-06-19] MEDS: CYANOCOBALAMIN 500 MCG TAB PO SCH (08:09)
[2020-06-19] MEDS: CALCIUM CARBONATE 500 MG CHEWABLE PO SCH (08:09)
[2020-06-19] MEDS: ENOXAPARIN 40 MG/0.4 ML SYRINGE SQ SCH (08:09)
[2020-06-19] MEDS: FUROSEMIDE 40 MG TAB PO SCH (08:10)
[2020-06-19] MEDS: SERTRALINE 100 MG TAB PO SCH (08:10)
[2020-06-19] MEDS: METOPROLOL TARTRATE 25 MG TAB PO SCH ×2 (08:10→20:24)
[2020-06-19] MEDS: SPIRONOLACTONE 25 MG TAB PO SCH ×2 (09:35→20:24)
--- NOTE | 2020-06-19 11:43 | P.PN ---
Subjective Progress Note Date: 06/19/20 CHIEF COMPLAINT: Abdominal pain HISTORY OF PRESENT ILLNESS: Patient is status post exploratory laparotomy, small bowel resection and repair of incarcerated ventral hernia for strangulated ventral hernia, small bowel obstruction and small bowel ischemia. Patient has been having abdominal pain. Pain is controlled with pain medication. Patient had a paracentesis with 4.3 L removed yesterday. She is now passing gas. She denies any nausea or vomiting. Urine output is now adequate. GI service had or dered an MRI of the liver to follow-up on a liver lesion. Due to patient's surgery MRI cannot be completed for 6 weeks. GI service and medicine service had restarted patient's diuretics. Patient seen by oncology service regarding liver lesion. Afebrile. WBC 5.2 hemoglobin 10.4 platelet 121 creatinine 0.67 Patient seen and examined with Dr. Paredes PHYSICAL EXAM: VITAL SIGNS: Reviewed. GENERAL: Well-developed in no acute distress. HEENT: No sclera icterus. Extraocular movements grossly intact. Moist buccal mucosa. Head is atraumatic, normocephalic. ABDOMEN: Soft and less distended. No drainage from incision site. Patient does have PHILL drain with serosanguineous fluid. Patient does have a right inguinal hernia and is soft and nontender NEUROLOGIC: Alert and oriented. Cranial nerves II through XII grossly intact. ASSESSMENT: 1. strangulated ventral hernia, small bowel obstruction and small bowel ischemia status post exploratory laparotomy, small bowel resection and repair of incarcerated ventral hernia. Postop day #4 2. Liver lesion. Followed by GI and oncology service. 3. History of liver cirrhosis and ascites requiring paracentesis every 1-2 weeks. Patient status post paracentesis during this admission with 4.3 L removed 4. Decreased urine output improved with IV fluid boluses PLAN: -Advance diet to clear liquids -Continue IV fluids -Add [place] as needed for oral pain medication -Consult PT OT -Add ensure with meals -Encouraged patient to increase activity -Encouraged patient to use incentive spirometer -She had prophylaxis Protonix and DVT prophylaxis Lovenox Physician Appraiser Personal Property note has been reviewed by physician. Signing provider agrees with the documented findings, assessment, and plan of care. Objective - Vital Signs Vital signs: Vital Signs Temp 97.7 F 06/19/20 07:57 Pulse 86 06/19/20 11:11 Resp 16 06/19/20 11:11 BP 116/68 06/19/20 09:34 Pulse Ox 97 06/19/20 08:33 Intake & Output 06/18/20 06/19/20 06/19/20 18:59 06:59 18:59 Intake Total 1630 Output Total 460 740 Balance -460 890 Intake: Intake, IV Titration 1600 Amount Albumin Human 25% 50 ml 100 In Empty Bag 1 bag @ 200 mls/hr IVPB Q15M NETO Rx#: [id number] Lactated Ringers 1,000 ml 1500 @ 125 mls/hr IV .Q8H NETO Rx#:[id number] Oral 30 Output: Drainage 20 Anterior Abdomen 20 Urine 440 740 Uretheral (Olivas) 240 Other: Voiding Method Indwelling Catheter Indwelling Catheter Indwelling Catheter # Voids 250 - Labs CBC & Chem 7: 06/19/20 04:50 06/19/20 04:50 Labs: Abnormal Lab Results - Last 24 Hours (Table) 06/18/20 06/18/20 06/19/20 Range/Units 10:52 10:52 04:50 RBC 3.75 L 3.74 L (3.80-5.40) m/uL Hgb 10.6 L 10.4 L (11.4-16.0) gm/dL Hct 33.2 L 33.4 L (34.0-46.0) % RDW 16.1 H 16.1 H (11.5-15.5) % Plt Count 121 L (150-450) k/uL Lymphocytes # 0.3 L 0.4 L (1.0-4.8) k/uL Sodium 135 L (137-145) mmol/L Chloride 108 H (98-107) mmol/L BUN 33 H (7-17) mg/dL Glucose 114 H (74-99) mg/dL 06/19/20 Range/Units 04:50 RBC (3.80-5.40) m/uL Hgb (11.4-16.0) gm/dL Hct (34.0-46.0) % RDW (11.5-15.5) % Plt Count (150-450) k/uL Lymphocytes # (1.0-4.8) k/uL Sodium (137-145) mmol/L Chloride (98-107) mmol/L BUN 29 H (7-17) mg/dL Glucose (74-99) mg/dL
[2020-06-19] MEDS: HYDROcodone/APAP 5-325MG 1 EACH TAB PO PRN ×2 (12:04→19:27)
--- NOTE | 2020-06-19 15:19 | P.PN ---
Subjective Progress Note Date: 06/19/20 Principal diagnosis: Liver lesion This is a pleasant 64-year-old white female who presented to the emergency department with a history of liver cirrhosis secondary to alcohol use and refractory ascites requiring paracentesis once every 2-3 weeks in outpatient basis, with complaints of abdominal pain with incarcerated umbilical hernia. He underwent exploratory laparotomy with small bowel resection and repair of the umbilical hernia by Dr. Paredes. In the emergency room the patient has CT of the abdomen and pelvis that showed a 4 cm lesion in the right lobe of the liver. Plan was to consider doing MRI of the liver which was ordered, however radiology states patient has 2 wait 6 weeks postoperatively. Today she underwent paracentesis with reported 4.3 L of fluid removal. She states she is feeling better today, pain has improved. She denies any nausea or vomiting. She's been on ice chips and now advance to clear liquid. Objective - Vital Signs Vital signs: Vital Signs Temp 97.7 F 06/19/20 07:57 Pulse 86 06/19/20 07:57 Resp 16 06/19/20 07:57 BP 116/68 06/19/20 09:34 Pulse Ox 97 06/19/20 08:33 Intake & Output 06/18/20 06/19/20 06/19/20 18:59 06:59 18:59 Intake Total 1630 Output Total 460 740 Balance -460 890 Intake: Intake, IV Titration 1600 Amount Albumin Human 25% 50 ml 100 In Empty Bag 1 bag @ 200 mls/hr IVPB Q15M NETO Rx#: [id number] Lactated Ringers 1,000 ml 1500 @ 125 mls/hr IV .Q8H ENTO Rx#:[id number] Oral 30 Output: Drainage 20 Anterior Abdomen 20 Urine 440 740 Uretheral (Olivas) 240 Other: Voiding Method Indwelling Catheter Indwelling Catheter # Voids 250 - Exam General appearance: The patient is alert, oriented, appears in no acute distress. HET: Head is normocephalic and atraumatic. Conjunctiva pink. Sclera anicteric. Neck: Supple without lymphadenopathy. Abdomen: Soft, tender, nondistended with surgical dressing in palce, No guarding or rigidity. Extremities: Normal skin color and turgor. No pedal edema Skin: No rashes, no jaundice Neurological: No focal deficits. Alert and oriented 3. - Labs CBC & Chem 7: 06/19/20 04:50 06/19/20 04:50 Labs: Abnormal Lab Results - Last 24 Hours (Table) 06/18/20 06/18/20 06/19/20 Range/Units 10:52 10:52 04:50 RBC 3.75 L 3.74 L (3.80-5.40) m/uL Hgb 10.6 L 10.4 L (11.4-16.0) gm/dL Hct 33.2 L 33.4 L (34.0-46.0) % RDW 16.1 H 16.1 H (11.5-15.5) % Plt Count 121 L (150-450) k/uL Lymphocytes # 0.3 L 0.4 L (1.0-4.8) k/uL Sodium 135 L (137-145) mmol/L Chloride 108 H (98-107) mmol/L BUN 33 H (7-17) mg/dL Glucose 114 H (74-99) mg/dL 06/19/20 Range/Units 04:50 RBC (3.80-5.40) m/uL Hgb (11.4-16.0) gm/dL Hct (34.0-46.0) % RDW (11.5-15.5) % Plt Count (150-450) k/uL Lymphocytes # (1.0-4.8) k/uL Sodium (137-145) mmol/L Chloride (98-107) mmol/L BUN 29 H (7-17) mg/dL Glucose (74-99) mg/dL Assessment and Plan (1) Hepatic lesion Narrative/Plan: Hepatic lesion noted on computed tomography scan of the abdomen that was done in the emergency room. Prior ultrasound of the abdomen done in November 2019 did not show any evidence of liver lesions. The lesion measured about 4 cm in the right lobe of the liver. Rule out hepatocellular carcinoma. Oncology has been consulted. Paracentesis ordered with cytology and fluid studies. Current Visit: Yes Status: Acute Priority: High Code(s): K76.9 - LIVER DISEASE, UNSPECIFIED SNOMED Code(s): 178708898 (2) Incarcerated hernia Narrative/Plan: Patient is status post exploratory laparotomy with small bowel resection and hernia repair by Dr. Paredes Current Visit: Yes Status: Acute Code(s): K46.0 - UNSP ABDOMINAL HERNIA WITH OBSTRUCTION, WITHOUT GANGRENE SNOMED Code(s): 79229696 (3) Alcoholic cirrhosis Narrative/Plan: Patient has a history of alcoholic cirrhosis of the liver with portal hypertension and refractory ascites requiring large volume paracentesis every 2 weeks on an outpatient basis. She is maintained on Lasix and Aldactone on an outpatient basis. Diuretics were currently on hold, will reinitiate today. Current Visit: No Status: Acute Code(s): K70.30 - ALCOHOLIC CIRRHOSIS OF LIVER WITHOUT ASCITES SNOMED Code(s): 373917317 (4) Ascites Current Visit: No Status: Acute Code(s): R18.8 - OTHER ASCITES SNOMED Code(s): 696856261 Plan: 1. Symptomatic and supportive care 2. Alpha protein ordered, normal 3. MRI ordered however unable to perform due to surgery 4. Resume Aldactone and Lasix 40 mg daily 5. Continue pain management per surgical services 6. Oncology consulted for further recommendations for liver lesion 7. Paracentesis completed with cytology and fluid studies Dr. Jose G Harkins I agree with the dictator's note, documented as a scribe by Leny Scanlon.
--- NOTE | 2020-06-19 21:05 | P.PN ---
<Becki Sanchez - Last Filed: 06/19/20 21:05> Subjective Progress Note Date: 06/19/20 Principal diagnosis: Abd pain Status post exploratory laparotomy, with small bowel resection and repair of in carcerated ventral hernia for strangulated ventral hernia, small bowel obstruction and small bowel ischemia by Dr. Paredes. Abdominal pain is controlled on current support regimen She is status post paracentesis and 4.3 Liters removed. She admits to flatulence today Objective - Vital Signs Vital signs: Vital Signs Temp 97.9 F 06/19/20 12:44 Pulse 87 06/19/20 12:44 Resp 17 06/19/20 12:44 BP 116/70 06/19/20 12:44 Pulse Ox 96 06/19/20 12:44 Intake & Output 06/19/20 06/19/20 06/20/20 06:59 18:59 06:59 Intake Total 1630 1340 Output Total 740 315 Balance 890 1025 Weight 52 kg Intake: IV 1000 Lactated Ringers 1,000 ml 1000 @ 125 mls/hr IV .Q8H NETO Rx#:[id number] Intake, IV Titration 1600 Amount Albumin Human 25% 50 ml 100 In Empty Bag 1 bag @ 200 mls/hr IVPB Q15M NETO Rx#: [id number] Lactated Ringers 1,000 ml 1500 @ 125 mls/hr IV .Q8H NTEO Rx#:[id number] Oral 30 340 Output: Drainage 15 Anterior Abdomen 15 Urine 740 300 Uretheral (Olivas) 240 Other: Voiding Method Indwelling Catheter Indwelling Catheter - Exam General appearance: thin - EENT Eyes: anicteric sclerae, EOMI ENT: hearing grossly normal, normal oropharynx - Neck Neck: no lymphadenopathy - Respiratory Respiratory: bilateral: diminished - Cardiovascular Rhythm: regular Heart sounds: normal: S1, S2 Abnormal Heart Sounds: no systolic murmur, no diastolic murmur, no rub, no S3 G allop, no S4 Gallop, no click, no other leg Peripheral Edema: bilateral: None - Gastrointestinal Midline incision gonzalez are intact, abdomen is firm, moderate tenderness but nothing realistic. No bruising or bleeding noted at this time. Distant, hyperactive bowel sounds General gastrointestinal: distended, splenomegaly - Neurologic Neurologic: CNII-XII intact - Musculoskeletal Musculoskeletal: strength equal bilaterally - Psychiatric Patient is lethargic, drifts off to sleep during conversation - Labs CBC & Chem 7: 06/19/20 04:50 06/19/20 04:50 Labs: Abnormal Lab Results - Last 24 Hours (Table) 06/19/20 06/19/20 Range/Units 04:50 04:50 RBC 3.74 L (3.80-5.40) m/uL Hgb 10.4 L (11.4-16.0) gm/dL Hct 33.4 L (34.0-46.0) % RDW 16.1 H (11.5-15.5) % Plt Count 121 L (150-450) k/uL Lymphocytes # 0.4 L (1.0-4.8) k/uL BUN 29 H (7-17) mg/dL Assessment and Plan Plan: CT scan - abdomen: report reviewed CT scan - pelvis: report reviewed Assessment and Plan Hepatic lesion: Ichemic Bowel Abdominal Ascites Incarcerated Hernia - Status post exploratory lap and small bowel resection and repair of incarcerated ventral hernia for strangulated ventral hernia, small bowel obstruction and small bowel ischemia - Status Post Paracentesis 4.3L - Await Path - AFP not elevated Physician Attest: I have completed the full history and physical and developed the above impression and plan, agree with dictation above, dictated as a scribe. <Dejan Domingo - Last Filed: 06/21/20 00:26> Objective - Vital Signs Vital signs: Vital Signs Temp 98.2 F 06/20/20 21:45 Pulse 82 06/20/20 21:45 Resp 14 06/20/20 21:45 BP 108/68 06/20/20 21:45 Pulse Ox 95 06/20/20 21:45 Intake & Output 06/20/20 06/20/20 06/21/20 06:59 18:59 06:59 Intake Total 1000 Output Total 715 250 Balance -715 750 Intake: IV 400 Lactated Ringers 1,000 ml 400 @ 125 mls/hr IV .Q8H NETO Rx#:[id number] Intake, IV Titration 600 Amount Lactated Ringers 1,000 ml 600 @ 125 mls/hr IV .Q8H NETO Rx#:[id number] Output: Drainage 15 Anterior Abdomen 15 Urine 700 250 Other: Voiding Method Indwelling Catheter Indwelling Catheter Indwelling Catheter # Voids 250 1 # Bowel Movements 1 - Labs CBC & Chem 7: 06/20/20 04:39 06/20/20 04:39 Labs: Abnormal Lab Results - Last 24 Hours (Table) 06/20/20 06/20/20 Range/Units 04:39 04:39 RBC 3.74 L (3.80-5.40) m/uL Hgb 11.2 L (11.4-16.0) gm/dL Hct 32.6 L (34.0-46.0) % RDW 15.9 H (11.5-15.5) % Plt Count 111 L (150-450) k/uL Lymphocytes # 0.3 L (1.0-4.8) k/uL BUN 30.0 H (9.0-27.0) mg/dL BUN/Creatinine Ratio 42.86 H (12.00-20.00) Ratio Total Bilirubin 3.7 H (0.2-1.2) mg/dL AST 36 H (13-35) U/L Total Protein 4.5 L (6.2-8.2) g/dL Albumin 2.80 L (3.80-4.90) g/dL Assessment and Plan Plan: as above. If cytology on ascitic fluid negative, will plan biopsy of liver lesion
--- NOTE | 2020-06-19 23:50 | P.PN ---
Progress Note - Text Progress Note Date: 06/19/20 - Chief Complaint Abdominal pain History of presenting complaint: This is a pleasant 64-year-old patient of Dr. Susana Arreguin. She also follows with gas burner operator Dr. Jose G Harkins. Chronic stable medical conditions include hypertension, hyperlipidemia, scoliosis, anxiety, alcohol-induced cirrhosis. Patient stopped drinking in 2014. Only drinks occasionally. Patient's gets his repeated scheduled paracentesis. Patient now presented with increasing abdominal pain for 3 days. Nausea vomiting. For one day. No fever no chills. Appetite had been fair. Normally has about 3 bowel movements a day. Patient yesterday taken to the operating room was found to have a strangulate and ventral hernia with small bowel ischemia with obstruction. Small bowel resection with repair of the ventral hernia was carried out. June 18: 4.3 L of paracentesis done Today: Laying in bed. Tired. Abdominal pain. Did pass some flatus. On clear liquids Review of systems: Was done for constitutional, cardiovascular, GI, pulmonary. relevant finding as above Active Medications Hydrocodone Bitart/Acetaminophen (Hydrocodone/Apap 5-325mg 1 Each Tab) 1 each PO Q6HR PRN PRN Reason: Pain Last Admin: 06/19/20 19:27 Dose: 1 each Documented by: Calcium Carbonate/Glycine (Calcium Carbonate 500 Mg Chewable) 1,000 mg PO DAILY [facility] Last Admin: 06/19/20 08:09 Dose: 1,000 mg Documented by: Cholecalciferol (Cholecalciferol 25 Mcg (1000 Iu) Tablet) 25 mcg PO DAILY [facility] Last Admin: 06/19/20 08:09 Dose: 25 mcg Documented by: Cyanocobalamin (Cyanocobalamin 500 Mcg Tab) 500 mcg PO DAILY [facility] Last Admin: 06/19/20 08:09 Dose: 500 mcg Documented by: Enoxaparin Sodium (Enoxaparin 40 Mg/0.4 Ml Syringe) 40 mg SQ DAILY [facility] Last Admin: 06/19/20 08:09 Dose: 40 mg Documented by: Furosemide (Furosemide 40 Mg Tab) 40 mg PO DAILY [facility] Last Admin: 06/19/20 08:10 Dose: 40 mg Documented by: Hydromorphone HCl (Hydromorphone 1 Mg/Ml 1 Ml Syringe) 1 mg IVP Q3HR PRN PRN Reason: Moderate to Severe Pain Last Admin: 06/18/20 09:10 Dose: 1 mg Documented by: Lactated Ringer's (Lactated Ringers) 1,000 mls @ 125 mls/hr IV .Q8H [facility] Last Admin: 06/19/20 14:37 Dose: Not Given Documented by: Magnesium Oxide (Magnesium Oxide 400 Mg Tab) 400 mg PO DAILY [facility] Last Admin: 06/19/20 08:09 Dose: 400 mg Documented by: Metoprolol Tartrate (Metoprolol Tartrate 25 Mg Tab) 25 mg PO BID [facility] Last Admin: 06/19/20 20:24 Dose: 25 mg Documented by: Morphine Sulfate (Morphine Sulfate 4 Mg/Ml Syringe) 4 mg IV Q4HR PRN PRN Reason: Severe Pain Naloxone HCl (Naloxone 0.4 Mg/Ml 1 Ml Vial) 0.2 mg IV Q2M PRN PRN Reason: Opioid Reversal Ondansetron HCl (Ondansetron 4 Mg/2 Ml Vial) 4 mg IVP Q8HR PRN PRN Reason: Nausea And Vomiting Last Admin: 06/17/20 12:59 Dose: 4 mg Documented by: Pantoprazole Sodium (Pantoprazole 40 Mg/10 Ml Vial) 40 mg IVP DAILY [facility] Last Admin: 06/19/20 08:09 Dose: 40 mg Documented by: Ropinirole HCl (Ropinirole Hcl 0.25 Mg Tab) 0.5 mg PO HS [facility] Last Admin: 06/19/20 20:24 Dose: 0.5 mg Documented by: Sertraline HCl (Sertraline 100 Mg Tab) 100 mg PO DAILY [facility] Last Admin: 06/19/20 08:10 Dose: 100 mg Documented by: Spironolactone (Spironolactone 25 Mg Tab) 100 mg PO BID [facility] Last Admin: 06/19/20 20:24 Dose: 100 mg Documented by: Past medical history to include: Ascites, cirrhosis from alcoholism, secondary bone portal hypertension, essential hypertension, hyperlipidemia, scoliosis, hepatosplenomegaly, anxiety Social history: Patient smoked a pack for 33 years. Stopped in 2006. Patient is drinking excessive alcohol 2 2014. Physical examination: VITAL SIGNS: 97.9, 87, 17, 1160 70, 96% on 2 L GENERAL: Laying in bed, awake EYES: Pupils equal. Conjunctiva normal. HEENT: External appearance of nose and ears normal, oral cavity grossly normal. NECK: JVD not raised; masses not palpable. HEART: First and second heart sounds are normal; no edema. LUNGS: Respiratory rate normal; decreased breath sounds. ABDOMEN: Soft, mild tenderness, PHILL drain, liver spleen not palpable, no masses palpable. Bowel sounds present PSYCH: Alert and oriented x3; mood and affect normal. INVESTIGATIONS, reviewed in the clinical context: June 19: WBC 5.2 hemoglobin 10.4 platelets 121 potassium 4 creatinine 0.67 June 18: WBC 6.1 hemoglobin 10.6 potassium 4.9 creatinine 0.73 June 17: WBC 4.5 hemoglobin 10.3 platelets potassium 4.9 creatinine 0.84 WBC 7.3 hemoglobin 13 platelets 68 potassium 5 creatinine 0.88 Coronavirus [PCF]-not detected Computed tomography scan of the abdomen: Cirrhotic liver. Splenomegaly. Changes of portal venous hypertension. Incarcerated of medical hernia containing small bowel with evidence of small bowel obstruction. Gallstones Assessment and plan: -Incarcerated ventral hernia of the abdominal wall with small bowel obstruction Status post surgical repair and resection of small bowel -Ascites secondary to cirrhosis Continue with Lasix and Aldactone. Status post 4.3 L paracentesis -Alcohol-induced cirrhosis Fluid restriction and low-salt diet -Secondary portal hypertension from cirrhosis Follow clinically -Essential hypertension Continue Lopressor -Chronic scoliosis Pain medications if needed -Hepatosplenomegaly from cirrhosis Follow clinically -Thrombocytopenia chronic from cirrhosis Follow platelets -Right lobe of liver 4 cm lesion. Pending MRI as per GI Tolerating clear liquids. Increase activity Thank you Dr. Paredes
[2020-06-20] MEDS: LACTATED RINGERS 1,000 ML IV SCH ×2 (02:54→09:21)
[2020-06-20 06:34] LABS: Basophils % (A) 0 %; Eosinophils # (A) 0.1 k/uL (0-0.7); Eosinophils % (A) 2 %; HCT 32.6 % (34.0-46.0); HGB 11.2 gm/dL (11.4-16.0); Lymphocytes # (A) 0.3 k/uL (1.0-4.8); Lymphocytes % (A) 4 %; MCH 29.9 pg (25.0-35.0); MCHC 34.4 g/dL (31.0-37.0); MCV 87.1 fL (80.0-100.0); Mean Platelet Volume 7.8; Monocytes # (A) 0.6 k/uL (0-1.0); Monocytes % (A) 9 %; Neutrophils # (A) 5.7 k/uL (1.3-7.7); Neutrophils % (A) 83 %; Platelet Count 111 k/uL (150-450); RBC 3.74 m/uL (3.80-5.40); RDW 15.9 % (11.5-15.5); WBC 6.9 k/uL (3.8-10.6)
[2020-06-20] MEDS: PANTOPRAZOLE 40 MG/10 ML VIAL IVP SCH (08:24)
[2020-06-20] MEDS: CALCIUM CARBONATE 500 MG CHEWABLE PO SCH (08:24)
[2020-06-20] MEDS: ENOXAPARIN 40 MG/0.4 ML SYRINGE SQ SCH (08:24)
[2020-06-20] MEDS: SPIRONOLACTONE 25 MG TAB PO SCH ×2 (08:24→20:14)
[2020-06-20] MEDS: SERTRALINE 100 MG TAB PO SCH (08:25)
[2020-06-20] MEDS: FUROSEMIDE 40 MG TAB PO SCH (08:25)
[2020-06-20] MEDS: METOPROLOL TARTRATE 25 MG TAB PO SCH ×2 (08:25→20:14)
[2020-06-20] MEDS: CYANOCOBALAMIN 500 MCG TAB PO SCH (08:25)
[2020-06-20] MEDS: MAGNESIUM OXIDE 400 MG TAB PO SCH (08:25)
[2020-06-20] MEDS: CHOLECALCIFEROL 25 MCG (1000 IU) TABLET PO SCH (08:25)
[2020-06-20 09:21] LABS: African American GFR (CKD) 106.1 (60.0-200.0); Albumin 2.8 g/dL (3.80-4.90); Albumin/Globulin Ratio 1.65 (1.60-3.17); Anion Gap 9.1 mmol/L (4.00-12.00); BUN/Creat Ratio 42.86 Ratio (12.00-20.00); Carbon Dioxide 23.9 mmol/L (21.6-31.8); Globulin 1.7 g/dL (1.6-3.3); Non-African American GFR(CKD) 91.6 (60.0-200.0); Potassium 4.2 mmol/L (3.5-5.5); Total Bilirubin 3.7 mg/dL (0.2-1.2); Total Protein 4.5 g/dL (6.2-8.2)
--- NOTE | 2020-06-20 11:36 | PN ---
PROGRESS NOTE DATE OF SERVICE: 06/20/2020 INTERVAL HISTORY: Patient is a 64-year-old pleasant white female admitted to the hospital with incarcerated umbilical hernia with small bowel ischemia requiring small bowel resection. The patient is postoperative day #5, still not doing well. She complains of decreased appetite, abdominal pain, nausea but no emesis. She had a paracentesis done yesterday and 3.2 L of fluid was removed. She was started on a full liquid diet this morning. No fever, chills, night sweats. PHYSICAL EXAMINATION: VITAL SIGNS: Blood pressure 127/73, pulse rate 98, temperature 98.2. HEENT: Examination unremarkable. Conjunctivae are pink. Sclerae anicteric. Oral cavity no lesions. NECK: No JVD or lymph node enlargement. CHEST: Clear to auscultation. HEART: Regular rate and rhythm. ABDOMEN: Still distended. There is tenderness all over the periumbilical area. EXTREMITIES: No pedal edema noted. NEURO: She is alert and oriented x3. No focal deficits. LABS: From today WBC 6.9, hemoglobin 11.2, platelets 111. BUN and creatinine at 30 and 1.7 respectively. T bilirubin 3.7, AST 36, ALT 16. IMPRESSION: 1. Incarcerated umbilical hernia with small bowel ischemia, status post small bowel resection and repair of the hernia by Dr. Paredes, postop day #5. 2. Recurrent ascites secondary to cirrhosis of the liver, status post large-volume paracentesis yesterday and 3.2 L fluid removed. 3. Alcoholic cirrhosis of the liver with gradual decompensation. 4. Refractory ascites. 5. A 4 cm lesion in the right lobe of the liver noted on CT scan of the abdomen that could not delineate well. MRI of the liver was recommended, but because of recent surgery, this cannot be done for another 4 weeks. Alpha fetoprotein is normal. Oncology has been consulted. RECOMMENDATIONS: 1. Continue with symptomatic and supportive care. 2. Continue full liquid diet for now. 3. Continue with Aldactone 100 mg twice daily as well as Lasix 40 mg daily. 4. Monitor labs closely. 5. Consider an MRI of the liver in 3-4 weeks. We will follow with you closely. Thank you for this consultation. MMODL / IJN: [id number] /
--- NOTE | 2020-06-20 16:23 | P.PN ---
Subjective Progress Note Date: 06/20/20 She had a bowel movement yesterday and today. She is tolerating liquid diet. She reports no moderate appetite or desire to advance her diet. ABDOMEN: Protuberant. No peritonitis SKIN: Pale, with ecchymosis along the lips LABS: Reviewed PLAN: 1. Continue liquid diet. Objective - Vital Signs Vital signs: Vital Signs Temp 98.2 F 06/20/20 11:48 Pulse 88 06/20/20 11:48 Resp 12 06/20/20 11:48 BP 110/65 06/20/20 11:48 Pulse Ox 93 L 06/20/20 11:48 Intake & Output 06/19/20 06/20/20 06/20/20 18:59 06:59 18:59 Intake Total 1340 400 Output Total 315 715 250 Balance 1025 -715 150 Weight 52 kg Intake: IV 1000 400 Lactated Ringers 1,000 ml 1000 400 @ 125 mls/hr IV .Q8H [facility] Rx#:[id number] Oral 340 Output: Drainage 15 15 Anterior Abdomen 15 15 Urine 300 700 250 Other: Voiding Method Indwelling Catheter Indwelling Catheter Indwelling Catheter # Voids 250 1 # Bowel Movements 1 - Labs CBC & Chem 7: 06/20/20 04:39 06/20/20 04:39 Labs: Abnormal Lab Results - Last 24 Hours (Table) 06/20/20 06/20/20 Range/Units 04:39 04:39 RBC 3.74 L (3.80-5.40) m/uL Hgb 11.2 L (11.4-16.0) gm/dL Hct 32.6 L (34.0-46.0) % RDW 15.9 H (11.5-15.5) % Plt Count 111 L (150-450) k/uL Lymphocytes # 0.3 L (1.0-4.8) k/uL BUN 30.0 H (9.0-27.0) mg/dL BUN/Creatinine Ratio 42.86 H (12.00-20.00) Ratio Total Bilirubin 3.7 H (0.2-1.2) mg/dL AST 36 H (13-35) U/L Total Protein 4.5 L (6.2-8.2) g/dL Albumin 2.80 L (3.80-4.90) g/dL
[2020-06-20] MEDS: HYDROcodone/APAP 5-325MG 1 EACH TAB PO PRN (20:19)
--- NOTE | 2020-06-20 23:21 | P.PN ---
Progress Note - Text Progress Note Date: 06/20/20 - Chief Complaint Abdominal pain History of presenting complaint: This is a pleasant 64-year-old patient of Dr. Susana Arreguin. She also follows with electrocardiograph operator Dr. Jose G Harkins. Chronic stable medical conditions include hypertension, hyperlipidemia, scoliosis, anxiety, alcohol-induced cirrhosis. Patient stopped drinking in 2014. Only drinks occasionally. Patient's gets his repeated scheduled paracentesis. Patient now presented with increasing abdominal pain for 3 days. Nausea vomiting. For one day. No fever no chills. Appetite had been fair. Normally has about 3 bowel movements a day. Patient yesterday taken to the operating room was found to have a strangulate and ventral hernia with small bowel ischemia with obstruction. Small bowel resection with repair of the ventral hernia was carried out. June 18: 4.3 L of paracentesis done Today: Up in chair. On full liquids. Had a small bowel movement. Some abdominal pain. at the bedside. Review of systems: Was done for constitutional, cardiovascular, GI, pulmonary. relevant finding as above Active Medications Hydrocodone Bitart/Acetaminophen (Hydrocodone/Apap 5-325mg 1 Each Tab) 1 each PO Q6HR PRN PRN Reason: Pain Last Admin: 06/20/20 20:19 Dose: 1 each Documented by: Calcium Carbonate/Glycine (Calcium Carbonate 500 Mg Chewable) 1,000 mg PO DAILY [facility] Last Admin: 06/20/20 08:24 Dose: 1,000 mg Documented by: Cholecalciferol (Cholecalciferol 25 Mcg (1000 Iu) Tablet) 25 mcg PO DAILY [facility] Last Admin: 06/20/20 08:25 Dose: 25 mcg Documented by: Cyanocobalamin (Cyanocobalamin 500 Mcg Tab) 500 mcg PO DAILY [facility] Last Admin: 06/20/20 08:25 Dose: 500 mcg Documented by: Enoxaparin Sodium (Enoxaparin 40 Mg/0.4 Ml Syringe) 40 mg SQ DAILY [facility] Last Admin: 06/20/20 08:24 Dose: 40 mg Documented by: Furosemide (Furosemide 40 Mg Tab) 40 mg PO DAILY [facility] Last Admin: 06/20/20 08:25 Dose: 40 mg Documented by: Hydromorphone HCl (Hydromorphone 1 Mg/Ml 1 Ml Syringe) 1 mg IVP Q3HR PRN PRN Reason: Moderate to Severe Pain Last Admin: 06/18/20 09:10 Dose: 1 mg Documented by: Lactated Ringer's (Lactated Ringers) 1,000 mls @ 125 mls/hr IV .Q8H [facility] Last Admin: 06/20/20 09:21 Dose: Not Given Documented by: Magnesium Oxide (Magnesium Oxide 400 Mg Tab) 400 mg PO DAILY [facility] Last Admin: 06/20/20 08:25 Dose: 400 mg Documented by: Metoprolol Tartrate (Metoprolol Tartrate 25 Mg Tab) 25 mg PO BID [facility] Last Admin: 06/20/20 20:14 Dose: 25 mg Documented by: Morphine Sulfate (Morphine Sulfate 4 Mg/Ml Syringe) 4 mg IV Q4HR PRN PRN Reason: Severe Pain Naloxone HCl (Naloxone 0.4 Mg/Ml 1 Ml Vial) 0.2 mg IV Q2M PRN PRN Reason: Opioid Reversal Ondansetron HCl (Ondansetron 4 Mg/2 Ml Vial) 4 mg IVP Q8HR PRN PRN Reason: Nausea And Vomiting Last Admin: 06/17/20 12:59 Dose: 4 mg Documented by: Pantoprazole Sodium (Pantoprazole 40 Mg/10 Ml Vial) 40 mg IVP DAILY [facility] Last Admin: 06/20/20 08:24 Dose: 40 mg Documented by: Ropinirole HCl (Ropinirole Hcl 0.25 Mg Tab) 0.5 mg PO HS [facility] Last Admin: 06/20/20 20:14 Dose: 0.5 mg Documented by: Sertraline HCl (Sertraline 100 Mg Tab) 100 mg PO DAILY [facility] Last Admin: 06/20/20 08:25 Dose: 100 mg Documented by: Spironolactone (Spironolactone 25 Mg Tab) 100 mg PO BID [facility] Last Admin: 06/20/20 20:14 Dose: 100 mg Documented by: Past medical history to include: Ascites, cirrhosis from alcoholism, secondary bone portal hypertension, essen tial hypertension, hyperlipidemia, scoliosis, hepatosplenomegaly, anxiety Social history: Patient smoked a pack for 33 years. Stopped in 2006. Patient is drinking excessive alcohol 2 2014. Physical examination: VITAL SIGNS: 98.2, 88, 12, 110 x 65, 93% on 2 L GENERAL: Reclining in chair, awake comfortable EYES: Pupils equal. Conjunctiva normal. HEENT: External appearance of nose and ears normal, oral cavity grossly normal. NECK: JVD not raised; masses not palpable. HEART: First and second heart sounds are normal; no edema. LUNGS: Respiratory rate normal; decreased breath sounds. ABDOMEN: Soft, mild tenderness, PHILL drain, liver spleen not palpable, no masses palpable. Bowel sounds present PSYCH: Alert and oriented x3; mood and affect normal. INVESTIGATIONS, reviewed in the clinical context: June 20: WBC 6.9 hemoglobin 11.2 platelets 111 potassium 4.2 creatinine 0.7 June 19: WBC 5.2 hemoglobin 10.4 platelets 121 potassium 4 creatinine 0.67 June 18: WBC 6.1 hemoglobin 10.6 potassium 4.9 creatinine 0.73 June 17: WBC 4.5 hemoglobin 10.3 platelets potassium 4.9 creatinine 0.84 WBC 7.3 hemoglobin 13 platelets 68 potassium 5 creatinine 0.88 Coronavirus [PCF]-not detected Computed tomography scan of the abdomen: Cirrhotic liver. Splenomegaly. Changes of portal venous hypertension. Incarcerated of medical hernia containing small bowel with evidence of small bowel obstruction. Gallstones Assessment and plan: -Incarcerated ventral hernia of the abdominal wall with small bowel obstruction Status post surgical repair and resection of small bowel. On full liquid diet -Ascites secondary to cirrhosis Continue with Lasix and Aldactone. Status post 4.3 L paracentesis -Alcohol-induced cirrhosis Fluid restriction and low-salt diet -Secondary portal hypertension from cirrhosis Follow clinically -Essential hypertension Continue Lopressor -Chronic scoliosis Pain medications if needed -Hepatosplenomegaly from cirrhosis Follow clinically -Thrombocytopenia chronic from cirrhosis Follow platelets -Right lobe of liver 4 cm lesion. Pending MRI as per GI Increase to full liquid diet. Discussed with patient. Thank you Dr. Paredes
[2020-06-21] MEDS: LACTATED RINGERS 1,000 ML IV SCH ×4 (04:28→21:15)
--- NOTE | 2020-06-21 07:40 | P.PN ---
Subjective Progress Note Date: 06/21/20 Principal diagnosis: Incarcerated hernia Alcoholic cirrhosis Bicytopenia Liver lesion Awaiting MRI liver. Objective - Vital Signs Vital signs: Vital Signs Temp 97.7 F 06/21/20 04:43 Pulse 88 06/21/20 04:43 Resp 16 06/21/20 04:43 BP 99/60 06/21/20 04:43 Pulse Ox 93 L 06/21/20 04:43 Intake & Output 06/20/20 06/21/20 06/21/20 18:59 06:59 18:59 Intake Total 1000 Output Total 250 300 Balance 750 -300 Intake: IV 400 Lactated Ringers 1,000 ml 400 @ 125 mls/hr IV .Q8H [facility] Rx#:[id number] Intake, IV Titration 600 Amount Lactated Ringers 1,000 ml 600 @ 125 mls/hr IV .Q8H [facility] Rx#:[id number] Output: Urine 250 300 Uretheral (Olivas) 300 Other: Voiding Method Indwelling Catheter Indwelling Catheter # Voids 1 2 - Exam Gen: NAD HEENT: Mucosa moist Lungs: No respiratory distress. Heart: Regular rate Abd: Surgical wound covered in bandage MSK: No obvious deformity Skin: No obvious jaundice Psych: Appropriate affect. - Labs CBC & Chem 7: 06/20/20 04:39 06/20/20 04:39 Labs: Abnormal Lab Results - Last 24 Hours (Table) 06/20/20 Range/Units 04:39 BUN 30.0 H (9.0-27.0) mg/dL BUN/Creatinine Ratio 42.86 H (12.00-20.00) Ratio Total Bilirubin 3.7 H (0.2-1.2) mg/dL AST 36 H (13-35) U/L Total Protein 4.5 L (6.2-8.2) g/dL Albumin 2.80 L (3.80-4.90) g/dL Assessment and Plan Assessment: 1. Incarcerated hernia s/p SB resection and hernia repair 2. Bicytopenia, due to cirrhosis and surgery 3. Liver lesion 4. Cirrhosis due to alcohol Plan: Ms. Hart is a very pleasant 64 yo female with multiple comorbidities here for abdominal pain due to incarcerated hernia, s/p resection of SB and hernia repair. Also with alcoholic cirrhosis. Incidentally found to have a 4cm liver lesion. Awaiting MRI liver to better characterize. AFP normal. Awaiting pathology from recent surgery. Also with new bicytopenia, thrombocytopenia and anemia, likely due to cirrhosis and recent surgery. Continue to monitor for now.
[2020-06-21] MEDS: ENOXAPARIN 40 MG/0.4 ML SYRINGE SQ SCH (08:27)
[2020-06-21] MEDS: METOPROLOL TARTRATE 25 MG TAB PO SCH ×2 (08:28→21:15)
[2020-06-21] MEDS: CALCIUM CARBONATE 500 MG CHEWABLE PO SCH (08:28)
[2020-06-21] MEDS: CHOLECALCIFEROL 25 MCG (1000 IU) TABLET PO SCH (08:28)
[2020-06-21] MEDS: MAGNESIUM OXIDE 400 MG TAB PO SCH (08:28)
[2020-06-21] MEDS: SERTRALINE 100 MG TAB PO SCH (08:28)
[2020-06-21] MEDS: SPIRONOLACTONE 25 MG TAB PO SCH ×2 (08:28→21:15)
[2020-06-21] MEDS: CYANOCOBALAMIN 500 MCG TAB PO SCH (08:29)
[2020-06-21] MEDS: FUROSEMIDE 40 MG TAB PO SCH (08:29)
[2020-06-21] MEDS: PANTOPRAZOLE 40 MG/10 ML VIAL IVP SCH (08:29)
--- NOTE | 2020-06-21 10:17 | PN ---
PROGRESS NOTE DATE OF SERVICE: 06/21/2020 INTERVAL HISTORY: Patient is a 64-year-old white female with alcoholic cirrhosis of the liver, refractory ascites, admitted to the hospital with incarcerated umbilical hernia, small bowel ischemia requiring small-bowel resection and repair of the umbilical hernia. She is postoperative day #5. Continues to do poorly. She still has abdominal pain, reports no nausea, vomiting. She has some abdominal distention. She underwent large-volume paracentesis 3 days ago and 3 L of fluid was removed. She had one bowel movement this morning. On a clear liquid diet, tolerating well. PHYSICAL EXAMINATION: GENERAL: She appears comfortable. In mild distress. VITAL SIGNS: Stable. Blood pressure 99/60, pulse rate 88, temperature 97.7. HEENT: Examination unremarkable. Conjunctivae are pink. Sclerae anicteric. Oral cavity no lesions. NECK: No JVD or lymph node enlargement. CHEST: Clear to auscultation. HEART: Regular rate and rhythm. ABDOMEN: Distended. There was tenderness all over the abdomen. There was free fluid noted. Surgical site appears good. There was some fluid in both the inguinal areas. EXTREMITIES: No pedal edema. NEURO: She is alert and oriented x3. No focal deficits. LABS: From yesterday WBC 6.9, hemoglobin 11.2, platelets 111. BUN and creatinine are 30 and 0.7 respectively. T bilirubin 3.7, AST 36, ALT 60. Peritoneal fluid cytology is still pending. IMPRESSION: 1. Incarcerated umbilical hernia, status post small bowel resection with repair of the umbilical hernia. Postop day #5. 2. Recurrent ascites. 3. Alcoholic liver disease with gradual decompensation. 4. A 4 cm mass in the right lobe of the liver noted on recent CT scan of the abdomen. RECOMMENDATIONS: 1. Decreased IV fluids. 2. Start her on Glucerna 1 can twice daily. 3. Continue with diuretics with Lasix 40 mg daily and Aldactone 100 mg daily. 4. Increase ambulation. 5. Monitor labs closely. 6. We will follow with you. Thank you for this consultation. MMLAINEL / GABRIEL: [id number] /
--- NOTE | 2020-06-21 15:18 | P.PN ---
Subjective Progress Note Date: 06/21/20 She reports chronic abdominal pain. Per nursing, she has drainage from her incision as she has ascites recently drained during hospitalization. She is having bowel movements. ABDOMEN: Generalized tenderness with fullness from ascites. Dressing intact. LABS: Reviewed PLAN: 1. Recommend another paracentesis with fluid cultures. Objective - Vital Signs Vital signs: Vital Signs Temp 98.2 F 06/21/20 12:00 Pulse 92 06/21/20 12:00 Resp 18 06/21/20 12:00 BP 117/75 06/21/20 12:00 Pulse Ox 96 06/21/20 12:00 Intake & Output 06/20/20 06/21/20 06/21/20 18:59 06:59 18:59 Intake Total 1000 Output Total 250 300 Balance 750 -300 Intake: IV 400 Lactated Ringers 1,000 ml 400 @ 125 mls/hr IV .Q8H [facility] Rx#:[id number] Intake, IV Titration 600 Amount Lactated Ringers 1,000 ml 600 @ 125 mls/hr IV .Q8H [facility] Rx#:[id number] Output: Urine 250 300 Uretheral (Olivas) 300 Other: Voiding Method Indwelling Catheter Indwelling Catheter Indwelling Catheter # Voids 1 2 - Labs CBC & Chem 7: 06/20/20 04:39 06/20/20 04:39
--- NOTE | 2020-06-21 16:13 | XR ---
EXAMINATION TYPE: XR chest 2V DATE OF EXAM: 06/21/2020 COMPARISON: NONE HISTORY: Chest congestion TECHNIQUE: 2 views FINDINGS: There is poor inspiration. There is atelectasis at the lung bases. Heart size is probably n ormal. There is no heart failure. There is thoracic dextroscoliosis. I see no definite pulmonary consolidation. IMPRESSION: Poor inspiration with atelectasis at the lung bases.
[2020-06-21] MEDS: HYDROcodone/APAP 5-325MG 1 EACH TAB PO PRN (18:50)
--- NOTE | 2020-06-21 23:03 | P.PN ---
Progress Note - Text Progress Note Date: 06/21/20 - Chief Complaint Abdominal pain History of presenting complaint: This is a pleasant 64-year-old patient of Dr. Susana Arreguin. She also follows with director of human resources Dr. Jose G Harkins. Chronic stable medical conditions include hypertension, hyperlipidemia, scoliosis, anxiety, alcohol-induced cirrhosis. Patient stopped drinking in 2014. Only drinks occasionally. Patient's gets his repeated scheduled paracentesis. Patient now presented with increasing abdominal pain for 3 days. Nausea vomiting. For one day. No fever no chills. Appetite had been fair. Normally has about 3 bowel movements a day. Patient yesterday taken to the operating room was found to have a strangulate and ventral hernia with small bowel ischemia with obstruction. Small bowel resection with repair of the ventral hernia was carried out. June 18: 4.3 L of paracentesis done Today: On for liquids. Eating about 50%. Some abdominal distention. Tired. Slight cough. No sputum. Review of systems: Was done for constitutional, cardiovascular, GI, pulmonary. relevant finding as above Active Medications Hydrocodone Bitart/Acetaminophen (Hydrocodone/Apap 5-325mg 1 Each Tab) 1 each PO Q6HR PRN PRN Reason: Pain Last Admin: 06/21/20 18:50 Dose: 1 each Documented by: Calcium Carbonate/Glycine (Calcium Carbonate 500 Mg Chewable) 1,000 mg PO DAILY [facility] Last Admin: 06/21/20 08:28 Dose: 1,000 mg Documented by: Cholecalciferol (Cholecalciferol 25 Mcg (1000 Iu) Tablet) 25 mcg PO DAILY [facility] Last Admin: 06/21/20 08:28 Dose: 25 mcg Documented by: Cyanocobalamin (Cyanocobalamin 500 Mcg Tab) 500 mcg PO DAILY [facility] Last Admin: 06/21/20 08:29 Dose: 500 mcg Documented by: Enoxaparin Sodium (Enoxaparin 40 Mg/0.4 Ml Syringe) 40 mg SQ DAILY [facility] Last Admin: 06/21/20 08:27 Dose: 40 mg Documented by: Furosemide (Furosemide 40 Mg Tab) 40 mg PO DAILY [facility] Last Admin: 06/21/20 08:29 Dose: 40 mg Documented by: Hydromorphone HCl (Hydromorphone 1 Mg/Ml 1 Ml Syringe) 1 mg IVP Q3HR PRN PRN Reason: Moderate to Severe Pain Last Admin: 06/18/20 09:10 Dose: 1 mg Documented by: Lactated Ringer's (Lactated Ringers) 1,000 mls @ 125 mls/hr IV .Q8H [facility] Last Admin: 06/21/20 21:15 Dose: Not Given Documented by: Magnesium Oxide (Magnesium Oxide 400 Mg Tab) 400 mg PO DAILY [facility] Last Admin: 06/21/20 08:28 Dose: 400 mg Documented by: Metoprolol Tartrate (Metoprolol Tartrate 25 Mg Tab) 25 mg PO BID [facility] Last Admin: 06/21/20 21:15 Dose: 25 mg Documented by: Morphine Sulfate (Morphine Sulfate 4 Mg/Ml Syringe) 4 mg IV Q4HR PRN PRN Reason: Severe Pain Naloxone HCl (Naloxone 0.4 Mg/Ml 1 Ml Vial) 0.2 mg IV Q2M PRN PRN Reason: Opioid Reversal Ondansetron HCl (Ondansetron 4 Mg/2 Ml Vial) 4 mg IVP Q8HR PRN PRN Reason: Nausea And Vomiting Last Admin: 06/17/20 12:59 Dose: 4 mg Documented by: Pantoprazole Sodium (Pantoprazole 40 Mg/10 Ml Vial) 40 mg IVP DAILY [facility] Last Admin: 06/21/20 08:29 Dose: 40 mg Documented by: Ropinirole HCl (Ropinirole Hcl 0.25 Mg Tab) 0.5 mg PO HS [facility] Last Admin: 06/21/20 21:15 Dose: 0.5 mg Documented by: Sertraline HCl (Sertraline 100 Mg Tab) 100 mg PO DAILY [facility] Last Admin: 06/21/20 08:28 Dose: 100 mg Documented by: Spironolactone (Spironolactone 25 Mg Tab) 100 mg PO BID [facility] Last Admin: 06/21/20 21:15 Dose: 100 mg Documented by: Past medical history to include: Ascites, cirrhosis from alcoholism, secondary bone portal hypertension, essential hypertension, hyperlipidemia, scoliosis, hepatosplenomegaly, anxiety Social history: Patient smoked a pack for 33 years. Stopped in 2006. Patient is drinking excessive alcohol 2 2014. Physical examination: VITAL SIGNS: 98.2, 92, 18, 117/75, 96% room air GENERAL: Laying in bed, awake, tired EYES: Pupils equal. Conjunctiva normal. HEENT: External appearance of nose and ears normal, oral cavity grossly normal. NECK: JVD not raised; masses not palpable. HEART: First and second heart sounds are normal; no edema. LUNGS: Respiratory rate normal; decreased breath sounds. ABDOMEN: Soft, some distention, mild tenderness, PHILL drain, liver spleen not palpable, no masses palpable. Bowel sounds present PSYCH: Alert and oriented x3; mood and affect normal. INVESTIGATIONS, reviewed in the clinical context: June 21: Chest x-ray: No infiltrates June 20: WBC 6.9 hemoglobin 11.2 platelets 111 potassium 4.2 creatinine 0.7 June 19: WBC 5.2 hemoglobin 10.4 platelets 121 potassium 4 creatinine 0.67 June 18: WBC 6.1 hemoglobin 10.6 potassium 4.9 creatinine 0.73 June 17: WBC 4.5 hemoglobin 10.3 platelets potassium 4.9 creatinine 0.84 WBC 7.3 hemoglobin 13 platelets 68 potassium 5 creatinine 0.88 Coronavirus [PCF]-not detected Computed tomography scan of the abdomen: Cirrhotic liver. Splenomegaly. Changes of portal venous hypertension. Incarcerated of medical hernia containi ng small bowel with evidence of small bowel obstruction. Gallstones Assessment and plan: -Incarcerated ventral hernia of the abdominal wall with small bowel obstruction Status post surgical repair and resection of small bowel. On full liquid diet -Ascites secondary to cirrhosis, recurrent Continue with Lasix and Aldactone. Status post 4.3 L paracentesis -Alcohol-induced cirrhosis Fluid restriction and low-salt diet -Secondary portal hypertension from cirrhosis Follow clinically -Essential hypertension Continue Lopressor -Chronic scoliosis Pain medications if needed -Hepatosplenomegaly from cirrhosis Follow clinically -Thrombocytopenia chronic from cirrhosis Follow platelets -Right lobe of liver 4 cm lesion. Pending MRI as per GI Tolerating full liquid diet. Ordered incentive spirometry. Increase activity Thank you Dr. Paredes
[2020-06-22] MEDS: LACTATED RINGERS 1,000 ML IV SCH ×2 (08:28→15:45)
[2020-06-22] MEDS: CHOLECALCIFEROL 25 MCG (1000 IU) TABLET PO SCH (08:32)
[2020-06-22] MEDS: CALCIUM CARBONATE 500 MG CHEWABLE PO SCH (08:32)
[2020-06-22] MEDS: ENOXAPARIN 40 MG/0.4 ML SYRINGE SQ SCH (08:32)
[2020-06-22] MEDS: CYANOCOBALAMIN 500 MCG TAB PO SCH (08:32)
[2020-06-22] MEDS: METOPROLOL TARTRATE 25 MG TAB PO SCH ×2 (08:32→21:14)
[2020-06-22] MEDS: FUROSEMIDE 40 MG TAB PO SCH (08:32)
[2020-06-22] MEDS: SERTRALINE 100 MG TAB PO SCH (08:33)
[2020-06-22] MEDS: MAGNESIUM OXIDE 400 MG TAB PO SCH (08:33)
[2020-06-22] MEDS: PANTOPRAZOLE 40 MG/10 ML VIAL IVP SCH (08:33)
[2020-06-22] MEDS: SPIRONOLACTONE 25 MG TAB PO SCH ×2 (08:45→21:15)
[2020-06-22] MEDS: HYDROcodone/APAP 5-325MG 1 EACH TAB PO PRN (09:42)
[2020-06-22 12:20] LABS: Anisocytosis Slight; Basophils # (A) 0.1 k/uL (0-0.2); Basophils % (A) 0 %; Eosinophils # (A) 0.1 k/uL (0-0.7); Eosinophils % (A) 1 %; HCT 33.4 % (34.0-46.0); HGB 11.5 gm/dL (11.4-16.0); Lymphocytes # (A) 0.3 k/uL (1.0-4.8); Lymphocytes % (A) 2 %; MCH 29.2 pg (25.0-35.0); MCHC 34.3 g/dL (31.0-37.0); MCV 85.2 fL (80.0-100.0); Mean Platelet Volume 7.8; Monocytes # (A) 0.4 k/uL (0-1.0); Monocytes % (A) 3 %; Neutrophils # (A) 12.5 k/uL (1.3-7.7); Neutrophils % (A) 93 %; Platelet Count 126 k/uL (150-450); RBC 3.92 m/uL (3.80-5.40); RDW 16.4 % (11.5-15.5); WBC 13.5 k/uL (3.8-10.6)
--- NOTE | 2020-06-22 12:22 | P.PN ---
Subjective Progress Note Date: 06/22/20 Principal diagnosis: Abd pain Discussed further with GI and after gonzalez removed MRI can be completed. Labs ordered today to recheck CBC, CMP and COags Objective - Vital Signs Vital signs: Vital Signs Temp 98.3 F 06/22/20 12:17 Pulse 99 06/22/20 12:17 Resp 15 06/22/20 12:17 BP 100/65 06/22/20 12:17 Pulse Ox 90 L 06/22/20 12:17 Intake & Output 06/21/20 06/22/20 06/22/20 18:59 06:59 18:59 Intake Total 60 220 Output Total 550 260 40 Balance -490 -260 180 Intake: IV 60 Lactated Ringers 1,000 ml 60 @ 125 mls/hr IV .Q8H [facility] Rx#:[id number] Oral 220 Output: Drainage 60 40 Anterior Abdomen 60 40 Urine 550 200 Uretheral (Olivas) 550 200 Other: Voiding Method Indwelling Catheter Indwelling Catheter Indwelling Catheter - Exam General appearance: thin - EENT Eyes: anicteric sclerae, EOMI ENT: hearing grossly normal, normal oropharynx - Neck Neck: no lymphadenopathy - Respiratory Respiratory: bilateral: diminished - Cardiovascular Rhythm: regular Heart sounds: normal: S1, S2 Abnormal Heart Sounds: no systolic murmur, no diastolic murmur, no rub, no S3 Gallop, no S4 Gallop, no click, no other leg Peripheral Edema: bilateral: None - Gastrointestinal Midline incision gonzalez are intact, abdomen is firm, moderate tenderness but nothing realistic. No bruising or bleeding noted at this time. Distant, hyperactive bowel sounds General gastrointestinal: distended, splenomegaly - Neurologic Neurologic: CNII-XII intact - Musculoskeletal Musculoskeletal: strength equal bilaterally - Psychiatric Patient is lethargic, drifts off to sleep during conversation - Labs CBC & Chem 7: 06/22/20 12:48 06/22/20 12:48 Assessment and Plan Plan: CT scan - abdomen: report reviewed CT scan - pelvis: report reviewed Assessment and Plan Hepatic lesion: Ichemic Bowel Abdominal Ascites Incarcerated Hernia - Status post exploratory lap and small bowel resection and repair of incarcerated ventral hernia for strangulated ventral hernia, small bowel obstru ction and small bowel ischemia - Status Post Paracentesis 4.3L - Await Path - AFP not elevated - INR increased today, recheck in am, platelets improved MRI after gonzalez removed Physician Attest: I have completed the full history and physical and developed the above impression and plan, agree with dictation above, dictated as a scribe.
[2020-06-22 13:25] LABS: Anisocytosis Slight; HCT 34.4 % (34.0-46.0); HGB 11.6 gm/dL (11.4-16.0); MCH 28.9 pg (25.0-35.0); MCHC 33.6 g/dL (31.0-37.0); MCV 86.2 fL (80.0-100.0); Mean Platelet Volume 7.8; Platelet Count 134 k/uL (150-450); RBC 3.99 m/uL (3.80-5.40); RDW 16.4 % (11.5-15.5); WBC 14.1 k/uL (3.8-10.6)
--- NOTE | 2020-06-22 13:29 | P.PN ---
Subjective Progress Note Date: 06/22/20 CHIEF COMPLAINT: Abdominal pain HISTORY OF PRESENT ILLNESS: Patient is status post exploratory laparotomy, small bowel resection and repair of incarcerated ventral hernia for strangulated ventral hernia, small bowel obstruction and small bowel ischemia. Patient has been having a large amount of clear yellowish drainage from her incision. There is a follow odor. In the middle of her sit incision there is an open area of about 1 cm where the drainage is leaking out. She does report abdominal pain. Reports that her pain is controlled. Denies any nausea or vomiting. She is on a full liquid diet. She did have a paracentesis during this admission was 4.3 L removed. PHILL drain with purulent drainage afebrile. WBC is up to 14.1. MRI of the liver regarding liver lesion can be completed after incisional gonzalez are removed. Patient seen and examined with Dr. Paredes PHYSICAL EXAM: VITAL SIGNS: Reviewed. GENERAL: Well-developed in no acute distress. HEENT: No sclera icterus. Extraocular movements grossly intact. Moist buccal mucosa. Head is atraumatic, normocephalic. ABDOMEN: Soft Patient does have PHILL drain with purulent fluid. Abdominal incision with foul smelling yellowish clear drainage. She has about a 1 cm area that is open in the mid incision NEUROLOGIC: Alert and oriented. Cranial nerves II through XII grossly intact. ASSESSMENT: 1. strangulated ventral hernia, small bowel obstruction and small bowel ischemia status post exploratory laparotomy, small bowel resection and repair of incarcerated ventral hernia. Postop day #7 2. Infection at abdominal incision site 3. Liver lesion. Followed by GI and oncology service. 4. History of liver cirrhosis and ascites requiring paracentesis every 1-2 weeks. Patient status post paracentesis during this admission with 4.3 L removed 5. Decreased urine output improved with IV fluid boluses PLAN: -Start patient on IV Zosyn due to drainage from incision site and white count up to 14.1 -Culture drainage from incision site -Continue full liquid diet -Continue pain medication as needed -Encouraged patient to increase activity -Encouraged patient to use incentive spirometer -She had prophylaxis Protonix and DVT prophylaxis Lovenox Physician [employer] note has been reviewed by physician. Signing provider agrees with the documented findings, assessment, and plan of care. Objective - Vital Signs Vital signs: Vital Signs Temp 98.3 F 06/22/20 12:17 Pulse 99 06/22/20 12:17 Resp 15 06/22/20 12:17 BP 100/65 06/22/20 12:17 Pulse Ox 90 L 06/22/20 12:17 Intake & Output 06/21/20 06/22/20 06/22/20 18:59 06:59 18:59 Intake Total 60 220 Output Total 550 260 40 Balance -490 -260 180 Intake: IV 60 Lactated Ringers 1,000 ml 60 @ 125 mls/hr IV .Q8H [facility] Rx#:[id number] Oral 220 Output: Drainage 60 40 Anterior Abdomen 60 40 Urine 550 200 Uretheral (Olivas) 550 200 Other: Voiding Method Indwelling Catheter Indwelling Catheter Indwelling Catheter - Labs CBC & Chem 7: 06/22/20 12:48 06/22/20 12:48 Labs: Abnormal Lab Results - Last 24 Hours (Table) 06/22/20 Range/Units 12:00 WBC 13.5 H (3.8-10.6) k/uL Hct 33.4 L (34.0-46.0) % RDW 16.4 H (11.5-15.5) % Plt Count 126 L (150-450) k/uL Neutrophils # 12.5 H (1.3-7.7) k/uL Lymphocytes # 0.3 L (1.0-4.8) k/uL
[2020-06-22 13:33] LABS: ALT 16 U/L (4-34); AST 30 U/L (14-36); African American GFR (CKD) 89 (>60 ml/min/1.73 sqM); Albumin 2.3 g/dL (3.5-5.0); Albumin/Globulin Ratio 0.9; Alkaline Phosphatase 92 U/L (38-126); Anion Gap 9 mmol/L; Blood Urea Nitrogen 27 mg/dL (7-17); Calcium 8.5 mg/dL (8.4-10.2); Carbon Dioxide 21 mmol/L (22-30); Chloride 104 mmol/L (98-107); Globulin 2.6 g/dL; Glucose 109 mg/dL (74-99); Non-African American GFR(CKD) 78 (>60 ml/min/1.73 sqM); Potassium 4.3 mmol/L (3.5-5.1); Sodium 134 mmol/L (137-145); Total Bilirubin 3.8 mg/dL (0.2-1.3); Total Protein 4.9 g/dL (6.3-8.2)
[2020-06-22 13:41] LABS: INR 1.6 (<1.2); Partial Thromboplastin Time 24.4 sec (22.0-30.0); Prothrombin Time 16.4 sec (9.0-12.0)
--- NOTE | 2020-06-22 13:55 | P.PN ---
Subjective Progress Note Date: 06/22/20 Principal diagnosis: Liver lesion This is a pleasant 64-year-old white female who presented to the emergency department with a history of liver cirrhosis secondary to alcohol use and refractory ascites requiring paracentesis once every 2-3 weeks in outpatient basis, with complaints of abdominal pain with incarcerated umbilical hernia. He underwent exploratory laparotomy with small bowel resection and repair of the umbilical hernia by Dr. Paredes. In the emergency room the patient has CT of the abdomen and pelvis that showed a 4 cm lesion in the right lobe of the liver. The patient is seen and evaluated today, she is lethargic, not eating well. She is having large amounts of yellow malodorous fluid seeping from her abdominal incision. Cultures were collected and sent. She denies any nausea or vomiting. She is having some mild abdominal discomfort. Objective - Vital Signs Vital signs: Vital Signs Temp 97.9 F 06/22/20 05:00 Pulse 86 06/22/20 05:00 Resp 16 06/22/20 05:00 BP 108/65 06/22/20 05:00 Pulse Ox 93 L 06/22/20 05:00 Intake & Output 06/21/20 06/22/20 06/22/20 18:59 06:59 18:59 Intake Total 60 Output Total 550 260 Balance -490 -260 Intake: IV 60 Lactated Ringers 1,000 ml 60 @ 125 mls/hr IV .Q8H [facility] Rx#:[id number] Output: Drainage 60 Anterior Abdomen 60 Urine 550 200 Uretheral (Olivas) 550 200 Other: Voiding Method Indwelling Catheter Indwelling Catheter Indwelling Catheter - Exam General appearance: The patient is alert, oriented, lethargic, appears in no acute distress. HET: Head is normocephalic and atraumatic. Conjunctiva pink. Sclera anicteric. Neck: Supple without lymphadenopathy. Abdomen: Soft, tender, nondistended, abdominal incision with small area open draining large amount of malodorous yellow fluid, No guarding or rigidity. Extremities: Normal skin color and turgor. No pedal edema Skin: No rashes, no jaundice Neurological: No focal deficits. Alert and oriented.. - Labs CBC & Chem 7: 06/22/20 12:48 06/22/20 12:48 Assessment and Plan (1) Hepatic lesion Narrative/Plan: Hepatic lesion noted on computed tomography scan of the abdomen that was done in the emergency room. Prior ultrasound of the abdomen done in November 2019 did not show any evidence of liver lesions. The lesion measured about 4 cm in the right lobe of the liver. Rule out hepatocellular carcinoma. Oncology has been consulted. Paracentesis ordered with cytology and fluid studies. Plan is for outpatient MRI of the liver 1 gonzalez are removed. Current Visit: Yes Status: Acute Priority: High Code(s): K76.9 - LIVER DISEASE, UNSPECIFIED SNOMED Code(s): 659013030 (2) Incarcerated hernia Narrative/Plan: Patient is status post exploratory laparotomy with small bowel resection and hernia repair by Dr. Paredes Current Visit: Yes Status: Acute Code(s): K46.0 - UNSP ABDOMINAL HERNIA WITH OBSTRUCTION, WITHOUT GANGRENE SNOMED Code(s): 34256383 (3) Alcoholic cirrhosis Narrative/Plan: Patient has a history of alcoholic cirrhosis of the liver with portal hypertension and refractory ascites requiring large volume paracentesis every 2 weeks on an outpatient basis. She is maintained on Lasix and Aldactone on an outpatient basis. Diuretics were currently on hold, will reinitiate today. Current Visit: No Status: Acute Code(s): K70.30 - ALCOHOLIC CIRRHOSIS OF LIVER WITHOUT ASCITES SNOMED Code(s): 394268088 (4) Ascites Current Visit: No Status: Acute Code(s): R18.8 - OTHER ASCITES SNOMED Code(s): 949365271 Plan: 1. Symptomatic and supportive care 2. Continue Aldactone and Lasix 40 mg daily 3. Keep IV fluids at KVO 4. Continue management per surgical services 5. Oncology consulted for further recommendations for liver lesion 6. Consider possible repeat paracentesis pending surgery's recommendations Dr. Jose G Harkins I agree with the dictator's note, documented as a scribe by Leny Scanlon.
[2020-06-22] MEDS: PIPERACILLIN-TAZOBACTAM 3.375 GM in SODIUM CHLORIDE 0.9% 100 ML IVPB SCH (16:43)
[2020-06-22 17:45] LABS: Band Neutrophils % 6 %; Eosinophils # (M) 0.14 k/uL (0-0.7); Lymphocytes # (M) 0.28 k/uL (1.0-4.8); Metamyelocytes # (M) 0.42 k/uL (0); Metamyelocytes % 3 %; Monocytes # (M) 0.71 k/uL (0-1.0); Myelocytes # (M) 0.14 k/uL (0); Myelocytes % 1 %; Neutrophils % (M) 84 %; Nucleated Red Blood Cells 0 /100 WBC (0-0); Total Cells Counted 200
[2020-06-22 17:46] LABS: Toxic Granulation Present
[2020-06-22 17:47] LABS: Polychromasia Present
--- NOTE | 2020-06-22 22:59 | P.PN ---
Progress Note - Text Progress Note Date: 06/22/20 - Chief Complaint Abdominal pain History of presenting complaint: This is a pleasant 64-year-old patient of Dr. Susana Arreguin. She also follows with forklift supervisor Dr. Jose G Harkins. Chronic stable medical conditions include hypertension, hyperlipidemia, scoliosis, anxiety, alcohol-induced cirrhosis. Patient stopped drinking in 2014. Only drinks occasionally. Patient's gets his repeated scheduled paracentesis. Patient now presented with increasing abdominal pain for 3 days. Nausea vomiting. For one day. No fever no chills. Appetite had been fair. Normally has about 3 bowel movements a day. Patient yesterday taken to the operating room was found to have a strangulate and ventral hernia with small bowel ischemia with obstruction. Small bowel resection with repair of the ventral hernia was carried out. June 18: 4.3 L of paracentesis done Today: On for liquids. Eating some. Has been having drainage through the incision site-soaking pads. Rather tired Review of systems: Was done for constitutional, cardiovascular, GI, pulmonary. relevant finding as above Active Medications Hydrocodone Bitart/Acetaminophen (Hydrocodone/Apap 5-325mg 1 Each Tab) 1 each PO Q6HR PRN PRN Reason: Pain Last Admin: 06/22/20 09:42 Dose: 1 each Documented by: Calcium Carbonate/Glycine (Calcium Carbonate 500 Mg Chewable) 1,000 mg PO DAILY [facility] Last Admin: 06/22/20 08:32 Dose: 1,000 mg Documented by: Cholecalciferol (Cholecalciferol 25 Mcg (1000 Iu) Tablet) 25 mcg PO DAILY [facility] Last Admin: 06/22/20 08:32 Dose: 25 mcg Documented by: Cyanocobalamin (Cyanocobalamin 500 Mcg Tab) 500 mcg PO DAILY [facility] Last Admin: 06/22/20 08:32 Dose: 500 mcg Documented by: Enoxaparin Sodium (Enoxaparin 40 Mg/0.4 Ml Syringe) 40 mg SQ DAILY [facility] Last Admin: 06/22/20 08:32 Dose: 40 mg Documented by: Furosemide (Furosemide 40 Mg Tab) 40 mg PO DAILY [facility] Last Admin: 06/22/20 08:32 Dose: 40 mg Documented by: Hydromorphone HCl (Hydromorphone 1 Mg/Ml 1 Ml Syringe) 1 mg IVP Q3HR PRN PRN Reason: Moderate to Severe Pain Last Admin: 06/18/20 09:10 Dose: 1 mg Documented by: Lactated Ringer's (Lactated Ringers) 1,000 mls @ 20 mls/hr IV .Q24H [facility] Last Admin: 06/22/20 15:45 Dose: 20 mls/hr Documented by: Piperacillin Sod/Tazobactam (Sod 3.375 gm/ Sodium Chloride) 100 mls @ 25 mls/hr IVPB Q8HR [facility] Last Admin: 06/22/20 16:43 Dose: 25 mls/hr Documented by: Magnesium Oxide (Magnesium Oxide 400 Mg Tab) 400 mg PO DAILY [facility] Last Admin: 06/22/20 08:33 Dose: 400 mg Documented by: Metoprolol Tartrate (Metoprolol Tartrate 25 Mg Tab) 25 mg PO BID [facility] Last Admin: 06/22/20 21:14 Dose: 25 mg Documented by: Morphine Sulfate (Morphine Sulfate 4 Mg/Ml Syringe) 4 mg IV Q4HR PRN PRN Reason: Severe Pain Naloxone HCl (Naloxone 0.4 Mg/Ml 1 Ml Vial) 0.2 mg IV Q2M PRN PRN Reason: Opioid Reversal Ondansetron HCl (Ondansetron 4 Mg/2 Ml Vial) 4 mg IVP Q8HR PRN PRN Reason: Nausea And Vomiting Last Admin: 06/17/20 12:59 Dose: 4 mg Documented by: Pantoprazole Sodium (Pantoprazole 40 Mg/10 Ml Vial) 40 mg IVP DAILY [facility] Last Admin: 06/22/20 08:33 Dose: 40 mg Documented by: Ropinirole HCl (Ropinirole Hcl 0.25 Mg Tab) 0.5 mg PO HS [facility] Last Admin: 06/22/20 21:14 Dose: 0.5 mg Documented by: Sertraline HCl (Sertraline 100 Mg Tab) 100 mg PO DAILY [facility] Last Admin: 06/22/20 08:33 Dose: 100 mg Documented by: Spironolactone (Spironolactone 25 Mg Tab) 100 mg PO BID [facility] Last Admin: 06/22/20 21:15 Dose: 100 mg Documented by: Past medical history to include: Ascites, cirrhosis from alcoholism, secondary bone portal hypertension, essential hypertension, hyperlipidemia, scoliosis, hepatosplenomegaly, anxiety Social history: Patient smoked a pack for 33 years. Stopped in 2006. Patient is drinking excessive alcohol 2 2014. Physical examination: VITAL SIGNS: 97.9, 86, 16, 108/65, 93% room air GENERAL: Laying in bed, awake, tired EYES: Pupils equal. Conjunctiva normal. HEENT: External appearance of nose and ears normal, oral cavity grossly normal. NECK: JVD not raised; masses not palpable. HEART: First and second heart sounds are normal; no edema. LUNGS: Respiratory rate normal; decreased breath sounds. ABDOMEN: Soft, some distention, mild tenderness, PHILL drain, liver spleen not palpable, no masses palpable. Bowel sounds present. Dressing pads over the incisions soaked PSYCH: Alert and oriented x3; mood and affect tired INVESTIGATIONS, reviewed in the clinical context: June 22: WBC 14.1 hemoglobin 11.6 potassium 4.3 creatinine 0.8 albumin 2.3 pro time 16.4 June 21: Chest x-ray: No infiltrates June 20: WBC 6.9 hemoglobin 11.2 platelets 111 potassium 4.2 creatinine 0.7 June 19: WBC 5.2 hemoglobin 10.4 platelets 121 potassium 4 creatinine 0.67 June 18: WBC 6.1 hemoglobin 10.6 potassium 4.9 creatinine 0.73 June 17: WBC 4.5 hemoglobin 10.3 platelets potassium 4.9 creatinine 0.84 WBC 7.3 hemoglobin 13 platelets 68 potassium 5 creatinine 0.88 Coronavirus [PCF]-not detected Computed tomography scan of the abdomen: Cirrhotic liver. Splenomegaly. Changes of portal venous hypertension. Incarcerated of medical hernia containing small bowel with evidence of small bowel obstruction. Gallstones Assessment and plan: -Incarcerated ventral hernia of the abdominal wall with small bowel obstruction Status post surgical repair and resection of small bowel. On full liquid diet -Ascites secondary to cirrhosis, recurrent Continue with Lasix and Aldactone. Status post 4.3 L paracentesis -Alcohol-induced cirrhosis Fluid restriction and low-salt diet -Secondary portal hypertension from cirrhosis Follow clinically -Essential hypertension Continue Lopressor -Chronic scoliosis Pain medications if needed -Hepatosplenomegaly from cirrhosis Follow clinically -Thrombocytopenia chronic from cirrhosis Follow platelets -Right lobe of liver 4 cm lesion. Pending MRI as per GI -Acute on chronic medical debility. PT OT Had a lengthy discussion with Dr. Jose G Harkins from GI. Also with the patient has been at the bedside. Patient has a rather weak constitution and a poor immune response giving her chronic condition./Cirrhosis. There is reaccumulation of the acetic fluid though not tense causing drainage of the incision. Dr. Paredes and followed the same. Overall prognosis guarded. Thank you Dr. Paredes
[2020-06-23] MEDS: PIPERACILLIN-TAZOBACTAM 3.375 GM in SODIUM CHLORIDE 0.9% 100 ML IVPB SCH ×3 (00:33→15:42)
[2020-06-23 06:58] LABS: Anisocytosis Slight; Basophils # (A) 0.1 k/uL (0-0.2); Basophils % (A) 1 %; Eosinophils # (A) 0.2 k/uL (0-0.7); Eosinophils % (A) 1 %; HCT 33.4 % (34.0-46.0); HGB 11.1 gm/dL (11.4-16.0); Lymphocytes # (A) 0.6 k/uL (1.0-4.8); Lymphocytes % (A) 4 %; MCH 28.8 pg (25.0-35.0); MCHC 33.4 g/dL (31.0-37.0); MCV 86.4 fL (80.0-100.0); Mean Platelet Volume 8.5; Monocytes # (A) 0.7 k/uL (0-1.0); Monocytes % (A) 5 %; Neutrophils # (A) 12.5 k/uL (1.3-7.7); Neutrophils % (A) 88 %; Platelet Count 145 k/uL (150-450); RBC 3.86 m/uL (3.80-5.40); RDW 16.5 % (11.5-15.5); WBC 14.2 k/uL (3.8-10.6)
[2020-06-23] MEDS: MAGNESIUM OXIDE 400 MG TAB PO SCH (09:35)
[2020-06-23] MEDS: CYANOCOBALAMIN 500 MCG TAB PO SCH (09:35)
[2020-06-23] MEDS: SPIRONOLACTONE 25 MG TAB PO SCH ×2 (09:35→20:22)
[2020-06-23] MEDS: CALCIUM CARBONATE 500 MG CHEWABLE PO SCH (09:35)
[2020-06-23] MEDS: METOPROLOL TARTRATE 25 MG TAB PO SCH ×2 (09:35→20:24)
[2020-06-23] MEDS: CHOLECALCIFEROL 25 MCG (1000 IU) TABLET PO SCH (09:35)
[2020-06-23] MEDS: PANTOPRAZOLE 40 MG/10 ML VIAL IVP SCH (09:35)
[2020-06-23] MEDS: FUROSEMIDE 40 MG TAB PO SCH (09:36)
[2020-06-23] MEDS: ENOXAPARIN 40 MG/0.4 ML SYRINGE SQ SCH (09:37)
[2020-06-23] MEDS: SERTRALINE 100 MG TAB PO SCH (09:41)
--- NOTE | 2020-06-23 14:54 | US ---
EXAMINATION TYPE: US paracentesis abd w/image DATE OF EXAM: 06/18/2020 COMPARISON: NONE HISTORY: Ascites. PROCEDURE: Maximal barrier technique was utilized. The skin overlying a suitable pocket of fluid was localized with ultrasound and the overlying skin was prepped and draped. Ultrasound was utilized with sterile technique. Lidocaine was used for local anesthesia and a skin verena made with a scalpel. Catheter was advanced under direct ultrasound guidance into a suitable pocket of fluid and approximately 4.3 liter s of serous fluid were removed. Catheter was withdrawn and hemostasis achieved. There is no immedia te complication; the patient is discharged in stable condition. IMPRESSION: STATUS POST ULTRASOUND GUIDED PARACENTESIS FOR PALLIATION OF ASCITES. THIS PROCEDURE WA S PERFORMED BY THE UNDERSIGNED.
--- NOTE | 2020-06-23 15:06 | P.PN ---
Subjective Progress Note Date: 06/23/20 CHIEF COMPLAINT: Abdominal pain HISTORY OF PRESENT ILLNESS: Patient is status post exploratory laparotomy, small bowel resection and repair of incarcerated ventral hernia for strangulated ventral hernia, small bowel obstruction and small bowel ischemia. Patient sitting up at bedside chair. She is starting to become more distended in the abdomen. Her ammonia level is elevated. She was started on lactulose. She is still having purulent drainage through the PHILL drain. There is still some drainage from the incision site. It is packed with the Aquacel silver dressing. She is tolerating full liquid diet. She is having bowel movements and passing gas. Denies any nausea or vomiting. Her pain is controlled. Afebrile. WBC 14.2 ammonia 55 MRI of the liver regarding liver lesion can be completed after incisional gonzalez are removed. Patient seen and examined with Dr. Paredes PHYSICAL EXAM: VITAL SIGNS: Reviewed. GENERAL: Well-developed in no acute distress. HEENT: No sclera icterus. Extraocular movements grossly intact. Moist buccal mucosa. Head is atraumatic, normocephalic. ABDOMEN: Soft Patient does have PHILL drain with purulent fluid. Abdominal incision with foul smelling yellowish clear drainage. She has about a 1 cm area that is open in the mid incision. Abdomen becoming more distended NEUROLOGIC: Alert and oriented. Cranial nerves II through XII grossly intact. ASSESSMENT: 1. strangulated ventral hernia, small bowel obstruction and small bowel ischemia status post exploratory laparotomy, small bowel resection and repair of incarcerated ventral hernia. Postop day #8 2. Infection at abdominal incision site 3. Liver lesion. Followed by GI and oncology service. 4. History of liver cirrhosis and ascites requiring paracentesis every 1-2 weeks. Patient status post paracentesis during this admission with 4.3 L removed 5. Decreased urine output improved with IV fluid boluses PLAN: -Schedule paracentesis tomorrow regarding abdominal ascites -Continue IV Zosyn -Culture drainage from incision site -Continue full liquid diet -Continue pain medication as needed -Encouraged patient to increase activity -Encouraged patient to use incentive spirometer -She had prophylaxis Protonix and DVT prophylaxis Lovenox Physician Cut Out Stitcher note has been reviewed by physician. Signing provider agrees with the documented findings, assessment, and plan of care. Objective - Vital Signs Vital signs: Vital Signs Temp 97.9 F 06/23/20 13:00 Pulse 98 06/23/20 13:00 Resp 17 06/23/20 13:00 BP 94/59 06/23/20 13:00 Pulse Ox 96 06/23/20 13:00 Intake & Output 06/22/20 06/23/20 06/23/20 18:59 06:59 18:59 Intake Total 220 490 Output Total 340 325 Balance -120 165 Weight 52 kg Intake: Intake, IV Titration 240 Amount Lactated Ringers 1,000 ml 240 @ 20 mls/hr IV .Q24H [facility] Rx#:[id number] Oral 220 250 Output: Drainage 40 50 Anterior Abdomen 40 50 Urine 300 275 Other: Voiding Method Indwelling Catheter Indwelling Catheter Indwelling Catheter - Labs CBC & Chem 7: 06/23/20 05:36 06/22/20 12:48 Labs: Abnormal Lab Results - Last 24 Hours (Table) 06/22/20 06/23/20 06/23/20 Range/Units 12:48 05:36 05:36 WBC 14.2 H (3.8-10.6) k/uL Hgb 11.1 L (11.4-16.0) gm/dL Hct 33.4 L (34.0-46.0) % RDW 16.5 H (11.5-15.5) % Plt Count 145 L (150-450) k/uL Neutrophils # 12.5 H (1.3-7.7) k/uL Neutrophils # (Manual) 12.60 H (1.3-7.7) k/uL Lymphocytes # 0.6 L (1.0-4.8) k/uL Lymphocytes # (Manual) 0.28 L (1.0-4.8) k/uL Metamyelocytes # (Man) 0.42 H (0) k/uL Myelocytes # (Manual) 0.14 H (0) k/uL Ammonia 55 H (<30) umol/L Microbiology - Last 24 Hours (Table) 06/22/20 09:30 Gram Stain - Preliminary Abdomen Wound Culture - Preliminary 06/22/20 09:30 Anaerobic Culture - Preliminary Abdomen
--- NOTE | 2020-06-23 15:23 | PN ---
PROGRESS NOTE DATE OF SERVICE: 06/23/2020 This 64-year-old woman was admitted after incarcerated ventral hernia repair and resection of the small bowel is being closely monitored, p.o. intake appears to be extremely poor. The patient has some mild shortness of breath also. The patient has severe protein calorie malnutrition. Surgery is following the patient closely. The WBC elevated 14.2 and sodium is 134. INR is 1.6. The most recent chest x-ray reviewed personally by me showed and atelectasis. PAST MEDICAL HISTORY: Reviewed. REVIEW OF SYSTEMS: CARDIOVASCULAR SYSTEM: No angina, no palpitations. RESPIRATORY SYSTEM: As mentioned earlier. GI: As mentioned earlier. : No dysuria. NERVOUS SYSTEM: No numbness or weakness. CURRENT MEDICATIONS: Current medications are reviewed and include: [place] 5 mg, Tums, vitamin D3, vitamin B12, Lovenox, Lasix, Dilaudid, lactated ringers, Cephulac, magnesium oxide, Lopressor. PHYSICAL EXAMINATION: The patient is alert and oriented x3. Pulse 98, blood pressure 94/59, respiration 17, temperature 97.9, pulse ox 98% on room air. HEENT: Conjunctivae normal. NECK: No jugular venous distention. CARDIOVASCULAR: S1, S2 muffled. RESPIRATORY: Breath sounds diminished at the bases. Scattered rhonchi. ABDOMEN: Soft, status post surgery. LEGS: No edema, no swelling. NERVOUS SYSTEM: No focal deficits. LABS: WBC 14.2, hemoglobin 11.1. Sodium is 134. Ammonia is 55. ASSESSMENT: 1. Status post repair of incarcerated ventral hernia of the abdominal wall with small bowel obstruction. 2. Ascites secondary to cirrhosis of the liver. 3. History of alcoholic cirrhosis. 4. Severe protein calorie malnutrition. 5. Secondary portal hypertension. 6. Hypertension. 7. Scoliosis. 8. Hepatosplenomegaly from cirrhosis of the liver. 9. Thrombocytopenia from cirrhosis of the liver. 10.Right lobe of the liver 4 cm lesion, awaiting MRI. 11.Gait dysfunction. 12.Hyponatremia. 13.Hypoalbuminemia. 14.Mild coagulopathy secondary to cirrhosis of the liver. 15.Increased WBC. 16.Anemia, normocytic. 17.FULL CODE. RECOMMENDATIONS AND DISCUSSION: This 64-year-old woman who presented with multiple complex medical issues, we will monitor the patient closely. Continue the current medications. Continue symptomatic treatment. I would recommend UA with micro. Otherwise continue to monitor. The patient also receiving broad-spectrum IV antibiotics. The cultures are negative so far. Repeat labs. Prognosis guarded. Further recommendations to follow. Closely follow with surgery. MMODL / IJN: [id number] / MTDD
[2020-06-23] MEDS: LACTATED RINGERS 1,000 ML IV SCH (15:38)
[2020-06-23] MEDS: MORPHINE SULFATE 4 MG/ML SYRINGE IV PRN (15:44)
--- NOTE | 2020-06-23 16:55 | P.PN ---
Subjective Progress Note Date: 06/23/20 Principal diagnosis: Liver lesion Seen and examined sitting up in a bedside chair. She is more alert today. She states abdominal pain has improved. She states she is not having as much drainage from her abdominal incision. She is on full liquid diet. He is more alert and oriented today. Objective - Vital Signs Vital signs: Vital Signs Temp 97.9 F 06/23/20 07:34 Pulse 93 06/23/20 07:34 Resp 16 06/23/20 07:34 BP 103/67 06/23/20 07:34 Pulse Ox 100 06/23/20 07:34 Intake & Output 06/22/20 06/23/20 06/23/20 18:59 06:59 18:59 Intake Total 220 490 Output Total 340 325 Balance -120 165 Weight 52 kg Intake: Intake, IV Titration 240 Amount Lactated Ringers 1,000 ml 240 @ 20 mls/hr IV .Q24H [facility] Rx#:[id number] Oral 220 250 Output: Drainage 40 50 Anterior Abdomen 40 50 Urine 300 275 Other: Voiding Method Indwelling Catheter Indwelling Catheter - Exam General appearance: The patient is alert, oriented, lethargic, appears in no acute distress. HET: Head is normocephalic and atraumatic. Conjunctiva pink. Sclera anicteric. Neck: Supple without lymphadenopathy. Abdomen: Soft, tender, nondistended, abdominal incision with small opening with packing, malodorous. No guarding or rigidity. Extremities: Normal skin color and turgor. No pedal edema Skin: No rashes, no jaundice Neurological: No focal deficits. Alert and oriented.. - Labs CBC & Chem 7: 06/23/20 05:36 06/22/20 12:48 Labs: Abnormal Lab Results - Last 24 Hours (Table) 06/22/20 06/22/20 06/22/20 Range/Units 12:00 12:48 12:48 WBC 13.5 H 14.1 H (3.8-10.6) k/uL Hgb (11.4-16.0) gm/dL Hct 33.4 L (34.0-46.0) % RDW 16.4 H 16.4 H (11.5-15.5) % Plt Count 126 L 134 L (150-450) k/uL Neutrophils # 12.5 H (1.3-7.7) k/uL Neutrophils # (Manual) 12.60 H (1.3-7.7) k/uL Lymphocytes # 0.3 L (1.0-4.8) k/uL Lymphocytes # (Manual) 0.28 L (1.0-4.8) k/uL Metamyelocytes # (Man) 0.42 H (0) k/uL Myelocytes # (Manual) 0.14 H (0) k/uL PT 16.4 H (9.0-12.0) sec INR 1.6 H (<1.2) Sodium (137-145) mmol/L Carbon Dioxide (22-30) mmol/L BUN (7-17) mg/dL Glucose (74-99) mg/dL Total Bilirubin (0.2-1.3) mg/dL Ammonia (<30) umol/L Total Protein (6.3-8.2) g/dL Albumin (3.5-5.0) g/dL 06/22/20 06/23/20 06/23/20 Range/Units 12:48 05:36 05:36 WBC 14.2 H (3.8-10.6) k/uL Hgb 11.1 L (11.4-16.0) gm/dL Hct 33.4 L (34.0-46.0) % RDW 16.5 H (11.5-15.5) % Plt Count 145 L (150-450) k/uL Neutrophils # 12.5 H (1.3-7.7) k/uL Neutrophils # (Manual) (1.3-7.7) k/uL Lymphocytes # 0.6 L (1.0-4.8) k/uL Lymphocytes # (Manual) (1.0-4.8) k/uL Metamyelocytes # (Man) (0) k/uL Myelocytes # (Manual) (0) k/uL PT (9.0-12.0) sec INR (<1.2) Sodium 134 L (137-145) mmol/L Carbon Dioxide 21 L (22-30) mmol/L BUN 27 H (7-17) mg/dL Glucose 109 H (74-99) mg/dL Total Bilirubin 3.8 H (0.2-1.3) mg/dL Ammonia 55 H (<30) umol/L Total Protein 4.9 L (6.3-8.2) g/dL Albumin 2.3 L (3.5-5.0) g/dL Microbiology - Last 24 Hours (Table) 06/22/20 09:30 Gram Stain - Preliminary Abdomen Wound Culture - Preliminary 06/22/20 09:30 Anaerobic Culture - Preliminary Abdomen Assessment and Plan (1) Hepatic lesion Narrative/Plan: Hepatic lesion noted on computed tomography scan of the abdomen that was done in the emergency room. Prior ultrasound of the abdomen done in November 2019 did not show any evidence of liver lesions. The lesion measured about 4 cm in the right lobe of the liver. Rule out hepatocellular carcinoma. Oncology has been consulted. Paracentesis ordered with cytology and fluid studies. Plan is for outpatient MRI of the liver 1 gonzalez are removed. Current Visit: Yes Status: Acute Priority: High Code(s): K76.9 - LIVER DISEASE, UNSPECIFIED SNOMED Code(s): 682912628 (2) Incarcerated hernia Narrative/Plan: Patient is status post exploratory laparotomy with small bowel resection and hernia repair by Dr. Paredes Current Visit: Yes Status: Acute Code(s): K46.0 - UNSP ABDOMINAL HERNIA WITH OBSTRUCTION, WITHOUT GANGRENE SNOMED Code(s): 19993793 (3) Alcoholic cirrhosis Narrative/Plan: Patient has a history of alcoholic cirrhosis of the liver with portal hypertension and refractory ascites requiring large volume paracentesis every 2 weeks on an outpatient basis. She is maintained on Lasix and Aldactone on an outpatient basis. Diuretics were currently on hold, will reinitiate today. Current Visit: No Status: Acute Code(s): K70.30 - ALCOHOLIC CIRRHOSIS OF LIVER WITHOUT ASCITES SNOMED Code(s): 827571826 (4) Ascites Current Visit: No Status: Acute Code(s): R18.8 - OTHER ASCITES SNOMED Code(s): 911070991 Plan: 1. Symptomatic and supportive care 2. Continue Aldactone and Lasix 40 mg daily 3. Keep IV fluids at KVO 4. Continue management per surgical services 5. Oncology consulted for further recommendations for liver lesion 6. Consider possible repeat paracentesis 7. Continue lactulose as ordered, will titrate to have 3-4 bowel movements daily Thank you for this consultation, we will continue to follow closely Dr. Velocci I agree with the dictator's note, documented as a scribe by Leny Scanlon.
[2020-06-23 18:33] LABS: Amorphous Sediment,Urine Rare /hpf; Appearance,Urine Cloudy (Clear); Bacteria,Urine Rare /hpf; Bilirubin,Urine 1+ (Negative); Blood,Urine Moderate (Negative); Color,Urine Dark Yellow; Glucose,Urine (UA) Negative (Negative); Hyaline Casts,Urine 12 /lpf (0-2); Ketones,Urine Negative (Negative); Leukocyte Esterase,Urine Large (Negative); Mucus,Urine Rare /hpf; Nitrite,Urine Negative (Negative); Protein,Urine Negative (Negative); RBC,Urine 29 /hpf (0-5); Specific Gravity,Urine 1.021 (1.001-1.035); Squamous Epithelial Cell,Urine <1 /hpf (0-4); WBC,Urine 90 /hpf (0-5)
[2020-06-23] MEDS: LACTULOSE 20 GM/30 ML CUP PO SCH (20:24)
--- NOTE | 2020-06-23 21:14 | P.PN ---
Subjective Progress Note Date: 06/23/20 Principal diagnosis: Abd pain Denied pain today, abdomen does appear more distended, > ? repeat therapeutic paracentesis. Objective - Vital Signs Vital signs: Vital Signs Temp 98.0 F 06/23/20 20:56 Pulse 97 06/23/20 20:58 Resp 18 06/23/20 20:58 BP 98/60 06/23/20 20:56 Pulse Ox 95 06/23/20 20:56 Intake & Output 06/23/20 06/23/20 06/24/20 06:59 18:59 06:59 Intake Total 490 Output Total 325 10 Balance 165 -10 Intake: Intake, IV Titration 240 Amount Lactated Ringers 1,000 ml 240 @ 20 mls/hr IV .Q24H [facility] Rx#:[id number] Oral 250 Output: Drainage 50 10 Anterior Abdomen 50 10 Urine 275 Other: Voiding Method Indwelling Catheter Indwelling Catheter Indwelling Catheter # Bowel Movements 1 - Exam General appearance: thin - EENT Eyes: anicteric sclerae, EOMI ENT: hearing grossly normal, normal oropharynx - Neck Neck: no lymphadenopathy - Respiratory Respiratory: bilateral: diminished - Cardiovascular Rhythm: regular Heart sounds: normal: S1, S2 Abnormal Heart Sounds: no systolic murmur, no diastolic murmur, no rub, no S3 Gallop, no S4 Gallop, no click, no other leg Peripheral Edema: bilateral: None - Gastrointestinal Midline incision gonzalez are intact, abdomen is firm, Distended mild drainage from recent surgical incision General gastrointestinal: distended, splenomegaly - Neurologic Neurologic: CNII-XII intact - Musculoskeletal Musculoskeletal: strength equal bilaterally - Psychiatric Patient is lethargic,awakens to stimuli - Labs CBC & Chem 7: 06/23/20 05:36 06/22/20 12:48 Labs: Abnormal Lab Results - Last 24 Hours (Table) 06/23/20 06/23/20 06/23/20 Range/Units 05:36 05:36 17:44 WBC 14.2 H (3.8-10.6) k/uL Hgb 11.1 L (11.4-16.0) gm/dL Hct 33.4 L (34.0-46.0) % RDW 16.5 H (11.5-15.5) % Plt Count 145 L (150-450) k/uL Neutrophils # 12.5 H (1.3-7.7) k/uL Lymphocytes # 0.6 L (1.0-4.8) k/uL Ammonia 55 H (<30) umol/L Urine Appearance Cloudy H (Clear) Urine Blood Moderate H (Negative) Urine Bilirubin 1+ H (Negative) Ur Leukocyte Esterase Large H (Negative) Urine RBC 29 H (0-5) /hpf Urine WBC 90 H (0-5) /hpf Urine WBC Clumps Few H (None) /hpf Amorphous Sediment Rare H (None) /hpf Urine Bacteria Rare H (None) /hpf Hyaline Casts 12 H (0-2) /lpf Urine Mucus Rare H (None) /hpf Microbiology - Last 24 Hours (Table) 06/22/20 09:30 Gram Stain - Preliminary Abdomen Wound Culture - Preliminary Assessment and Plan Plan: CT scan - abdomen: report reviewed CT scan - pelvis: report reviewed Assessment and Plan Hepatic lesion: - Further evaluation required with MRI, ok after gonzalez removed. - After MRI further recs Abdominal Ascites: - Status Post Paracentesis 4.3L - Cytology Negative Incarcerated Hernia: Ichemic Bowel - Status post exploratory lap and small bowel resection and repair of incarcerated ventral hernia for strangulated ventral hernia, small bowel obstruction and small bowel ischemia - AFP not elevated - INR increased today, recheck in am, platelets improved MRI after gonzalez removed Increased Bilirubin Coagulaopathy: - Repeat COags in am Daily CBC, CMP, and Coags in am
[2020-06-24] MEDS: PIPERACILLIN-TAZOBACTAM 3.375 GM in SODIUM CHLORIDE 0.9% 100 ML IVPB SCH ×3 (00:11→17:30)
[2020-06-24 06:47] LABS: Anisocytosis Slight; Basophils # (A) 0.2 k/uL (0-0.2); Basophils % (A) 1 %; Eosinophils # (A) 0.1 k/uL (0-0.7); Eosinophils % (A) 1 %; HCT 41.5 % (34.0-46.0); HGB 13.6 gm/dL (11.4-16.0); Hypochromasia Slight; Lymphocytes # (A) 0.4 k/uL (1.0-4.8); Lymphocytes % (A) 2 %; MCH 28.7 pg (25.0-35.0); MCHC 32.8 g/dL (31.0-37.0); MCV 87.5 fL (80.0-100.0); Mean Platelet Volume 7.8; Monocytes # (A) 0.8 k/uL (0-1.0); Monocytes % (A) 4 %; Neutrophils # (A) 18.7 k/uL (1.3-7.7); Neutrophils % (A) 92 %; Platelet Count 168 k/uL (150-450); RBC 4.74 m/uL (3.80-5.40); RDW 16.8 % (11.5-15.5); WBC 20.3 k/uL (3.8-10.6)
[2020-06-24 06:54] LABS: INR 1.7 (<1.2); Prothrombin Time 17.2 sec (9.0-12.0)
[2020-06-24 07:00] LABS: ALT 29 U/L (4-34); African American GFR (CKD) 63 (>60 ml/min/1.73 sqM); Albumin 2.2 g/dL (3.5-5.0); Albumin/Globulin Ratio 0.7; Anion Gap 13 mmol/L; Blood Urea Nitrogen 43 mg/dL (7-17); Calcium 8.6 mg/dL (8.4-10.2); Carbon Dioxide 17 mmol/L (22-30); Chloride 104 mmol/L (98-107); Globulin 3.1 g/dL; Glucose 128 mg/dL (74-99); Non-African American GFR(CKD) 55 (>60 ml/min/1.73 sqM); Sodium 134 mmol/L (137-145); Total Protein 5.3 g/dL (6.3-8.2)
[2020-06-24 07:11] LABS: Potassium 4.8 mmol/L (3.5-5.1)
[2020-06-24 07:12] LABS: AST 71 U/L (14-36); Alkaline Phosphatase 214 U/L (38-126)
[2020-06-24] MEDS: CALCIUM CARBONATE 500 MG CHEWABLE PO SCH (07:40)
[2020-06-24] MEDS: CHOLECALCIFEROL 25 MCG (1000 IU) TABLET PO SCH (07:41)
[2020-06-24] MEDS: CYANOCOBALAMIN 500 MCG TAB PO SCH (07:41)
[2020-06-24] MEDS: ENOXAPARIN 40 MG/0.4 ML SYRINGE SQ SCH (07:42)
[2020-06-24] MEDS: FUROSEMIDE 40 MG TAB PO SCH (07:43)
[2020-06-24] MEDS: METOPROLOL TARTRATE 25 MG TAB PO SCH ×2 (07:43→20:08)
[2020-06-24] MEDS: MAGNESIUM OXIDE 400 MG TAB PO SCH (07:43)
[2020-06-24] MEDS: LACTULOSE 20 GM/30 ML CUP PO SCH ×2 (07:43→20:34)
[2020-06-24] MEDS: SERTRALINE 100 MG TAB PO SCH (07:44)
[2020-06-24] MEDS: PANTOPRAZOLE 40 MG TABLET PO SCH (07:44)
[2020-06-24] MEDS: SPIRONOLACTONE 25 MG TAB PO SCH ×3 (07:44→20:09)
--- NOTE | 2020-06-24 13:04 | US ---
Discontinued paracentesis HISTORY: Ascites Limited ultrasound performed in the right and left abdomen. There is no significant fluid. Tumefactive sludge suspected within the gallbladder. IMPRESSION: No significant ascites identified. No paracentesis performed at this time.
--- NOTE | 2020-06-24 13:48 | P.PN ---
Subjective Progress Note Date: 06/24/20 CHIEF COMPLAINT: Abdominal pain HISTORY OF PRESENT ILLNESS: Patient is status post exploratory laparotomy, small bowel resection and repair of incarcerated ventral hernia for strangulated ventral hernia, small bowel obstruction and small bowel ischemia. Patient lying in bed. She was started on lactulose for elevated ammonia level and did have large bowel movements. She is still having purulent drainage through the PHILL drain with 70ml output. There is also air present in the PHILL drain in this is due to subcutaneous air due to open abdominal wound. There is drainage from the incision site. Incision is packed with the Aquacel silver dressing. She is tolerating full liquid diet. She is having bowel movements and passing gas. Denies any nausea or vomiting. Her pain is controlled. Patient is more lethargic today. Her abdominal distention appears to be less today. She did go down for possible paracentesis but they felt there was not enough fluid to perform paracentesis. Patient's oral intake has also been poor. Afebrile. WBC is increasing from 14.2-20.3. Sodium 134 potassium 4.8 BUN 43 creatinine 1.08 glucose 128 total bilirubin 4.0 AST 71 ALT 29 alk phos 214. Drainage from inc ision site growing alpha hemolytic streptococcus MRI of the liver regarding liver lesion can be completed after incisional gonzalez are removed. Patient seen and examined with Dr. Paredes PHYSICAL EXAM: VITAL SIGNS: Reviewed. GENERAL: Well-developed in no acute distress. HEENT: No sclera icterus. Extraocular movements grossly intact. Moist buccal mucosa. Head is atraumatic, normocephalic. ABDOMEN: Soft Patient does have PHILL drain with purulent fluid. Abdominal incision with foul smelling yellowish clear drainage. She has about a 1 cm area that is open in the mid incision. Abdomen is distended's yesterday NEUROLOGIC: Alert and oriented. But appears to be more lethargic Cranial nerves II through XII grossly intact. ASSESSMENT: 1. strangulated ventral hernia, small bowel obstruction and small bowel ischemia status post exploratory laparotomy, small bowel resection and repair of incarcerated ventral hernia. Postop day #9 2. Infection at abdominal incision site 3. Liver lesion. Followed by GI and oncology service. 4. History of liver cirrhosis and ascites requiring paracentesis every 1-2 weeks. Patient status post paracentesis during this admission with 4.3 L re moved 5. Decreased urine output improved with IV fluid boluses 6. UTI awaiting urine culture PLAN: -Continue IV Zosyn -Add IV Flagyl do to increase in WBCs -Continue full liquid diet -Continue pain medication as needed -Encouraged patient to increase activity -Encouraged patient to use incentive spirometer -She had prophylaxis Protonix and DVT prophylaxis Lovenox Physician Continuous Mining Machine Operator note has been reviewed by physician. Signing provider agrees with the documented findings, assessment, and plan of care. Objective - Vital Signs Vital signs: Vital Signs Temp 97.8 F 06/24/20 12:15 Pulse 86 06/24/20 12:15 Resp 17 06/24/20 12:15 BP 94/60 06/24/20 12:15 Pulse Ox 95 06/24/20 12:15 Intake & Output 06/23/20 06/24/20 06/24/20 18:59 06:59 18:59 Intake Total 0 Output Total 10 600 70 Balance -10 -600 -70 Intake: Oral 0 Output: Drainage 10 70 Anterior Abdomen 10 70 Urine 600 Uretheral ([place]) 600 Other: Voiding Method Indwelling Catheter Indwelling Catheter Indwelling Catheter # Bowel Movements 1 2 - Labs CBC & Chem 7: 06/24/20 06:16 06/24/20 06:21 Labs: Abnormal Lab Results - Last 24 Hours (Table) 06/23/20 06/24/20 06/24/20 Range/Units 17:44 06:16 06:16 WBC 20.3 H (3.8-10.6) k/uL RDW 16.8 H (11.5-15.5) % Neutrophils # 18.7 H (1.3-7.7) k/uL Lymphocytes # 0.4 L (1.0-4.8) k/uL PT 17.2 H (9.0-12.0) sec INR 1.7 H (<1.2) APTT 21.0 L (22.0-30.0) sec Sodium (137-145) mmol/L Carbon Dioxide (22-30) mmol/L BUN (7-17) mg/dL Creatinine (0.52-1.04) mg/dL Glucose (74-99) mg/dL Total Bilirubin (0.2-1.3) mg/dL AST (14-36) U/L Alkaline Phosphatase (38-126) U/L Total Protein (6.3-8.2) g/dL Albumin (3.5-5.0) g/dL Urine Appearance Cloudy H (Clear) Urine Blood Moderate H (Negative) Urine Bilirubin 1+ H (Negative) Ur Leukocyte Esterase Large H (Negative) Urine RBC 29 H (0-5) /hpf Urine WBC 90 H (0-5) /hpf Urine WBC Clumps Few H (None) /hpf Amorphous Sediment Rare H (None) /hpf Urine Bacteria Rare H (None) /hpf Hyaline Casts 12 H (0-2) /lpf Urine Mucus Rare H (None) /hpf 06/24/20 Range/Units 06:21 WBC (3.8-10.6) k/uL RDW (11.5-15.5) % Neutrophils # (1.3-7.7) k/uL Lymphocytes # (1.0-4.8) k/uL PT (9.0-12.0) sec INR (<1.2) APTT (22.0-30.0) sec Sodium 134 L (137-145) mmol/L Carbon Dioxide 17 L (22-30) mmol/L BUN 43 H (7-17) mg/dL Creatinine 1.08 H (0.52-1.04) mg/dL Glucose 128 H (74-99) mg/dL Total Bilirubin 4.0 H (0.2-1.3) mg/dL AST 71 H (14-36) U/L Alkaline Phosphatase 214 H (38-126) U/L Total Protein 5.3 L (6.3-8.2) g/dL Albumin 2.2 L (3.5-5.0) g/dL Urine Appearance (Clear) Urine Blood (Negative) Urine Bilirubin (Negative) Ur Leukocyte Esterase (Negative) Urine RBC (0-5) /hpf Urine WBC (0-5) /hpf Urine WBC Clumps (None) /hpf Amorphous Sediment (None) /hpf Urine Bacteria (None) /hpf Hyaline Casts (0-2) /lpf Urine Mucus (None) /hpf Microbiology - Last 24 Hours (Table) 06/22/20 09:30 Gram Stain - Final Abdomen Wound Culture - Final Alpha Hemolytic Streptococcus
--- NOTE | 2020-06-24 13:54 | PN ---
PROGRESS NOTE DATE OF SERVICE: 06/24/2020 This 64-year-old woman was admitted with incarcerated ventral hernia repair and as well as resection of small bowel, is being closely monitored. The patient has significant drainage from the wound. The patient is extremely emaciated and generally weak and the patient underwent abdominal paracentesis at this time. Yesterday, paracentesis revealed about 4.3 L of serous fluid. The patient also had history of alcoholic cirrhosis, also. The patient is severely emaciated. Calorie count is recommended. White count is elevated at 20.3. UA shows possibly UTI. PAST MEDICAL HISTORY: Reviewed. REVIEW OF SYSTEMS: CARDIOVASCULAR SYSTEM: No angina. RESPIRATORY SYSTEM: As mentioned earlier. GI: As mentioned earlier. : As mentioned earlier. NERVOUS SYSTEM: No numbness or weakness. CURRENT MEDICATIONS: Current medications are reviewed and include [place], Tums, vitamin C, Lasix, Dilaudid, Cephulac. Doses are reviewed. PHYSICAL EXAMINATION: Patient is alert, oriented x3. Pulse 86, blood pressure 94/60, respirations 17, temperature 97.8, pulse ox 95% on room air. HEENT: Conjunctivae normal. NECK: No jugular venous distention. CARDIOVASCULAR: S1, S2 muffled. RESPIRATORY: Breath sounds diminished at the bases. A few scattered rhonchi. ABDOMEN: Soft, distended. LEGS: No edema. NERVOUS SYSTEM: No focal deficits. LABS: WBC 20.3, hemoglobin 13.6. Otherwise, toxic granulation in the peripheral smear present. ASSESSMENT: 1. Status post repair of incarcerated ventral hernia, abdominal wall with small bowel obstruction. 2. Ascites secondary to cirrhosis of liver, status post large volume paracentesis 4.3 L serous fluid. 3. Increased WBC, possible acute urinary tract infection. 4. History of alcoholic cirrhosis. 5. Severe protein calorie malnutrition. 6. Gait dysfunction. 7. Secondary portal hypertension. 8. Hypertension. 9. Scoliosis. 10.Hepatosplenomegaly from cirrhosis of liver. 11.Thrombocytopenia from cirrhosis of the liver. 12.Right lobe of the liver 4 cm lesion, awaiting MRI. 13.Hyponatremia. 14.Hypoalbuminemia. 15.Mild coagulopathy secondary to cirrhosis of the liver. 16.Increased WBC. 17.Anemia, normocytic. 18.FULL CODE. RECOMMENDATIONS AND DISCUSSION: This 64-year-old woman who presented with multiple complex medical issues, we will monitor the patient closely. Continue the current medications and continue symptomatic treatment. Otherwise at this time I recommend continue current medications. I would also recommend empiric antibiotics and follow the cultures. I would also recommend ascitic fluid culture also. Guarded prognosis because of multiple complex medical issues. Further recommendations to follow. See orders for further details. Repeat labs in the morning. Dietitian to evaluate for the calorie count for 3 days and assess the nutrition status about supplementary feeding or even PEG tube insertion. MMODL / IJN: [id number] /
--- NOTE | 2020-06-24 14:34 | P.PN ---
Subjective Progress Note Date: 06/24/20 Principal diagnosis: Liver lesion Patient was seen and examined with no acute changes through the night. She was being taken down to ultrasound for paracentesis. She is on lactulose. Objective - Vital Signs Vital signs: Vital Signs Temp 97.3 F L 06/24/20 05:00 Pulse 93 06/24/20 05:00 Resp 16 06/24/20 05:00 BP 90/61 06/24/20 05:00 Pulse Ox 96 06/24/20 05:00 Intake & Output 06/23/20 06/24/20 06/24/20 18:59 06:59 18:59 Intake Total 0 Output Total 10 600 Balance -10 -600 Intake: Oral 0 Output: Drainage 10 Anterior Abdomen 10 Urine 600 Uretheral (Olivas) 600 Other: Voiding Method Indwelling Catheter Indwelling Catheter Indwelling Catheter # Bowel Movements 1 - Exam General appearance: The patient is alert, oriented, appears in no acute distress. HET: Head is normocephalic and atraumatic. Conjunctiva pink. Sclera anicteric. Neck: Supple without lymphadenopathy. Abdomen: Soft, tender, nondistended, abdominal incision with small opening with packing, malodorous. No guarding or rigidity. Extremities: Normal skin color and turgor. No pedal edema Skin: No rashes, mild aundice Neurological: No focal deficits. Alert and oriented.. - Labs CBC & Chem 7: 06/24/20 06:16 06/24/20 06:21 Labs: Abnormal Lab Results - Last 24 Hours (Table) 06/23/20 06/24/20 06/24/20 Range/Units 17:44 06:16 06:16 WBC 20.3 H (3.8-10.6) k/uL RDW 16.8 H (11.5-15.5) % Neutrophils # 18.7 H (1.3-7.7) k/uL Lymphocytes # 0.4 L (1.0-4.8) k/uL PT 17.2 H (9.0-12.0) sec INR 1.7 H (<1.2) APTT 21.0 L (22.0-30.0) sec Sodium (137-145) mmol/L Carbon Dioxide (22-30) mmol/L BUN (7-17) mg/dL Creatinine (0.52-1.04) mg/dL Glucose (74-99) mg/dL Total Bilirubin (0.2-1.3) mg/dL AST (14-36) U/L Alkaline Phosphatase (38-126) U/L Total Protein (6.3-8.2) g/dL Albumin (3.5-5.0) g/dL Urine Appearance Cloudy H (Clear) Urine Blood Moderate H (Negative) Urine Bilirubin 1+ H (Negative) Ur Leukocyte Esterase Large H (Negative) Urine RBC 29 H (0-5) /hpf Urine WBC 90 H (0-5) /hpf Urine WBC Clumps Few H (None) /hpf Amorphous Sediment Rare H (None) /hpf Urine Bacteria Rare H (None) /hpf Hyaline Casts 12 H (0-2) /lpf Urine Mucus Rare H (None) /hpf 06/24/ Range/Units 06:21 WBC (3.8-10.6) k/uL RDW (11.5-15.5) % Neutrophils # (1.3-7.7) k/uL Lymphocytes # (1.0-4.8) k/uL PT (9.0-12.0) sec INR (<1.2) APTT (22.0-30.0) sec Sodium 134 L (137-145) mmol/L Carbon Dioxide 17 L (22-30) mmol/L BUN 43 H (7-17) mg/dL Creatinine 1.08 H (0.52-1.04) mg/dL Glucose 128 H (74-99) mg/dL Total Bilirubin 4.0 H (0.2-1.3) mg/dL AST 71 H (14-36) U/L Alkaline Phosphatase 214 H (38-126) U/L Total Protein 5.3 L (6.3-8.2) g/dL Albumin 2.2 L (3.5-5.0) g/dL Urine Appearance (Clear) Urine Blood (Negative) Urine Bilirubin (Negative) Ur Leukocyte Esterase (Negative) Urine RBC (0-5) /hpf Urine WBC (0-5) /hpf Urine WBC Clumps (None) /hpf Amorphous Sediment (None) /hpf Urine Bacteria (None) /hpf Hyaline Casts (0-2) /lpf Urine Mucus (None) /hpf Assessment and Plan (1) Hepatic lesion Narrative/Plan: Hepatic lesion noted on computed tomography scan of the abdomen that was done in the emergency room. Prior ultrasound of the abdomen done in November 2019 did not show any evidence of liver lesions. The lesion measured about 4 cm in the right lobe of the liver. Rule out hepatocellular carcinoma. Oncology has been consulted. Paracentesis ordered with cytology and fluid studies. Plan is for outpatient MRI of the liver 1 gonzalez are removed. Current Visit: Yes Status: Acute Priority: High Code(s): K76.9 - LIVER DISEASE, UNSPECIFIED SNOMED Code(s): 439703053 (2) Incarcerated hernia Narrative/Plan: Patient is status post exploratory laparotomy with small bowel resection and hernia repair by Dr. Paredes Current Visit: Yes Status: Acute Code(s): K46.0 - UNSP ABDOMINAL HERNIA WITH OBSTRUCTION, WITHOUT GANGRENE SNOMED Code(s): 94011459 (3) Alcoholic cirrhosis Narrative/Plan: Patient has a history of alcoholic cirrhosis of the liver with portal hypertension and refractory ascites requiring large volume paracentesis every 2 weeks on an outpatient basis. She is maintained on Lasix and Aldactone on an outpatient basis. Diuretics were currently on hold, will reinitiate today. Current Visit: No Status: Acute Code(s): K70.30 - ALCOHOLIC CIRRHOSIS OF LIVER WITHOUT ASCITES SNOMED Code(s): 235654933 (4) Ascites Current Visit: No Status: Acute Code(s): R18.8 - OTHER ASCITES SNOMED Code(s): 590645541 Plan: 1. Symptomatic and supportive care 2. Continue Aldactone and Lasix 40 mg daily 3. Keep IV fluids at KVO 4. Continue management per surgical services 5. Oncology consulted for further recommendations for liver lesion 6. Repeat paracentesis ordered, not enough fluid for drainage. 7. Continue lactulose as ordered, titrate to have 3-4 bowel movements daily 8. Repeat ammonia level Thank you for this consultation, we will continue to follow closely Dr. Rivera I agree with the dictator's note, documented as a scribe by Leny Scanlon.
[2020-06-24] MEDS: SODIUM CHLORIDE 0.9% 1,000 ML IV SCH (14:57)
[2020-06-24] MEDS: LACTATED RINGERS 1,000 ML IV SCH (14:58)
[2020-06-24] MEDS: metroNIDAZOLE-NS PMX 500 MG in SALINE 1 100ML.BAG IVPB SCH ×2 (16:13→23:03)
[2020-06-24] MEDS: HYDROcodone/APAP 5-325MG 1 EACH TAB PO PRN (18:54)
[2020-06-24 19:52] LABS: African American GFR (CKD) 55.3 (60.0-200.0); Albumin 2.9 g/dL (3.80-4.90); Albumin/Globulin Ratio 1.21 (1.60-3.17); Anion Gap 18.6 mmol/L (4.00-12.00); BUN/Creat Ratio 32.5 Ratio (12.00-20.00); Calcium 8.4 mg/dL (8.7-10.3); Carbon Dioxide 15.4 mmol/L (21.6-31.8); Globulin 2.4 g/dL (1.6-3.3); Non-African American GFR(CKD) 47.7 (60.0-200.0); Potassium 4.5 mmol/L (3.5-5.5); Total Bilirubin 4.7 mg/dL (0.3-1.2); Total Protein 5.3 g/dL (6.2-8.2)
--- NOTE | 2020-06-24 21:07 | P.PN ---
Subjective Progress Note Date: 06/24/20 Principal diagnosis: Abd pain Radiology states not enough abdominal ascites to perform paracentesis today. Objective - Vital Signs Vital signs: Vital Signs Temp 97.3 F L 06/24/20 19:26 Pulse 93 06/24/20 19:28 Resp 20 06/24/20 19:28 BP 100/63 06/24/20 19:26 Pulse Ox 97 06/24/20 19:26 Intake & Output 06/24/20 06/24/20 06/25/20 06:59 18:59 06:59 Intake Total 0 Output Total 600 345 Balance -600 -345 Weight 52 kg Intake: Oral 0 Output: Drainage 95 Anterior Abdomen 95 Urine 600 250 Uretheral (Olivas) 600 250 Post Void Residual 0 Other: Voiding Method Indwelling Catheter Indwelling Catheter Indwelling Catheter # Bowel Movements 1 - Exam General appearance: thin - EENT Eyes: anicteric sclerae, EOMI ENT: hearing grossly normal, normal oropharynx - Neck Neck: no lymphadenopathy - Respiratory Respiratory: bilateral: diminished - Cardiovascular Rhythm: regular Heart sounds: normal: S1, S2 Abnormal Heart Sounds: no systolic murmur, no diastolic murmur, no rub, no S3 Gallop, no S4 Gallop, no click, no other leg Peripheral Edema: bilateral: None - Gastrointestinal Midline incision gonzalez are intact, abdomen is firm, Distended mild drainage from recent surgical incision General gastrointestinal: distended, splenomegaly - Neurologic Neurologic: CNII-XII intact - Musculoskeletal Musculoskeletal: strength equal bilaterally - Psychiatric Patient is lethargic,awakens to stimuli - Labs CBC & Chem 7: 06/24/20 06:16 06/24/20 06:21 Labs: Abnormal Lab Results - Last 24 Hours (Table) 06/23/20 06/24/20 06/24/20 Range/Units 14:45 06:16 06:16 WBC 20.3 H (3.8-10.6) k/uL RDW 16.8 H (11.5-15.5) % Neutrophils # 18.7 H (1.3-7.7) k/uL Lymphocytes # 0.4 L (1.0-4.8) k/uL PT 17.2 H (9.0-12.0) sec INR 1.7 H (<1.2) APTT 21.0 L (22.0-30.0) sec Sodium (137-145) mmol/L Carbon Dioxide 15.4 L (21.6-31.8) mmol/L Anion Gap 18.60 H (4.00-12.00) mmol/L BUN 39.0 H (9.0-27.0) mg/dL Creatinine (0.52-1.04) mg/dL Est GFR (CKD-EPI)AfAm 55.3 L (60.0-200.0) Est GFR (CKD-EPI)NonAf 47.7 L (60.0-200.0) BUN/Creatinine Ratio 32.50 H (12.00-20.00) Ratio Glucose 175 H (70-110) mg/dL Calcium 8.4 L (8.7-10.3) mg/dL Total Bilirubin 4.7 H (0.3-1.2) mg/dL AST 59 H (13-35) U/L Alkaline Phosphatase 237 H (41-126) U/L Total Protein 5.3 L (6.2-8.2) g/dL Albumin 2.90 L (3.80-4.90) g/dL Albumin/Globulin Ratio 1.21 L (1.60-3.17) g/dL 06/24/ Range/Units 06:21 WBC (3.8-10.6) k/uL RDW (11.5-15.5) % Neutrophils # (1.3-7.7) k/uL Lymphocytes # (1.0-4.8) k/uL PT (9.0-12.0) sec INR (<1.2) APTT (22.0-30.0) sec Sodium 134 L (137-145) mmol/L Carbon Dioxide 17 L (21.6-31.8) mmol/L Anion Gap (4.00-12.00) mmol/L BUN 43 H (9.0-27.0) mg/dL Creatinine 1.08 H (0.52-1.04) mg/dL Est GFR (CKD-EPI)AfAm (60.0-200.0) Est GFR (CKD-EPI)NonAf (60.0-200.0) BUN/Creatinine Ratio (12.00-20.00) Ratio Glucose 128 H (70-110) mg/dL Calcium (8.7-10.3) mg/dL Total Bilirubin 4.0 H (0.3-1.2) mg/dL AST 71 H (13-35) U/L Alkaline Phosphatase 214 H (41-126) U/L Total Protein 5.3 L (6.2-8.2) g/dL Albumin 2.2 L (3.80-4.90) g/dL Albumin/Globulin Ratio (1.60-3.17) g/dL Microbiology - Last 24 Hours (Table) 06/23/20 14:45 Blood Culture - Preliminary Blood No Growth after 24 hours 06/22/20 09:30 Gram Stain - Final Abdomen Wound Culture - Final Alpha Hemolytic Streptococcus Assessment and Plan Plan: CT scan - abdomen: report reviewed CT scan - pelvis: report reviewed Assessment and Plan Hepatic lesion: - Further evaluation required with MRI, ok after gonzalez removed. - After MRI further recs Abdominal Ascites: - Status Post Paracentesis 4.3L - Cytology Negative - Attempt to repeat 06/24/20 - Per radiology not adequate fluid to perform paracentesis. Incarcerated Hernia: Ichemic Bowel - Status post exploratory lap and small bowel resection and repair of incarcerated ventral hernia for strangulated ventral hernia, small bowel obstruction and small bowel ischemia - AFP not elevated MRI after gonzalez removed Increased Bilirubin Coagulaopathy: - Repeat COags in am Daily CBC, CMP, and Coags in am
[2020-06-25] MEDS: PIPERACILLIN-TAZOBACTAM 3.375 GM in SODIUM CHLORIDE 0.9% 100 ML IVPB SCH ×3 (00:02→17:53)
[2020-06-25 05:32] LABS: Anisocytosis Slight; Basophils # (A) 0.1 k/uL (0-0.2); Basophils % (A) 1 %; Eosinophils # (A) 0.2 k/uL (0-0.7); Eosinophils % (A) 1 %; HCT 38.1 % (34.0-46.0); HGB 11.9 gm/dL (11.4-16.0); Hypochromasia Slight; Lymphocytes # (A) 0.6 k/uL (1.0-4.8); Lymphocytes % (A) 4 %; MCH 27.4 pg (25.0-35.0); MCHC 31.3 g/dL (31.0-37.0); MCV 87.8 fL (80.0-100.0); Mean Platelet Volume 7.6; Monocytes # (A) 1.3 k/uL (0-1.0); Monocytes % (A) 8 %; Neutrophils # (A) 14.8 k/uL (1.3-7.7); Neutrophils % (A) 86 %; Platelet Count 192 k/uL (150-450); RBC 4.34 m/uL (3.80-5.40); RDW 17.3 % (11.5-15.5); WBC 17.2 k/uL (3.8-10.6)
[2020-06-25 05:34] LABS: INR 1.6 (<1.2); Prothrombin Time 15.7 sec (9.0-12.0)
[2020-06-25 05:45] LABS: ALT 25 U/L (4-34); AST 41 U/L (14-36); African American GFR (CKD) 46 (>60 ml/min/1.73 sqM); Albumin/Globulin Ratio 0.7; Alkaline Phosphatase 210 U/L (38-126); Anion Gap 10 mmol/L; Blood Urea Nitrogen 54 mg/dL (7-17); Calcium 8.3 mg/dL (8.4-10.2); Carbon Dioxide 21 mmol/L (22-30); Chloride 96 mmol/L (98-107); Globulin 2.8 g/dL; Glucose 114 mg/dL (74-99); Magnesium 1.8 mg/dL (1.6-2.3); Non-African American GFR(CKD) 40 (>60 ml/min/1.73 sqM); Potassium 4.5 mmol/L (3.5-5.1); Sodium 127 mmol/L (137-145); Total Protein 4.8 g/dL (6.3-8.2)
[2020-06-25] MEDS: MORPHINE SULFATE 4 MG/ML SYRINGE IV PRN ×2 (07:29→16:45)
[2020-06-25] MEDS: CYANOCOBALAMIN 500 MCG TAB PO SCH (07:30)
[2020-06-25] MEDS: PANTOPRAZOLE 40 MG TABLET PO SCH (07:31)
[2020-06-25] MEDS: LACTULOSE 20 GM/30 ML CUP PO SCH ×2 (07:31→21:30)
[2020-06-25] MEDS: MAGNESIUM OXIDE 400 MG TAB PO SCH (07:31)
[2020-06-25] MEDS: ENOXAPARIN 40 MG/0.4 ML SYRINGE SQ SCH (07:31)
[2020-06-25] MEDS: CHOLECALCIFEROL 25 MCG (1000 IU) TABLET PO SCH (07:31)
[2020-06-25] MEDS: metroNIDAZOLE-NS PMX 500 MG in SALINE 1 100ML.BAG IVPB SCH ×3 (07:31→23:01)
[2020-06-25] MEDS: FUROSEMIDE 40 MG TAB PO SCH (07:31)
[2020-06-25] MEDS: CALCIUM CARBONATE 500 MG CHEWABLE PO SCH (08:53)
[2020-06-25] MEDS: METOPROLOL TARTRATE 25 MG TAB PO SCH ×2 (12:19→21:30)
[2020-06-25] MEDS: SERTRALINE 100 MG TAB PO SCH (12:20)
[2020-06-25] MEDS: SPIRONOLACTONE 25 MG TAB PO SCH (12:20)
[2020-06-25] MEDS ORDERED: IPRATROPIUM-ALBUTEROL 3 ML NEB INHALATION PRN (12:50)
[2020-06-25] MEDS ORDERED: IOPAMIDOL CONTRAST (ORAL USE) VIAL PO PRN (12:54)
[2020-06-25] MEDS: IOPAMIDOL CONTRAST (ORAL USE) VIAL PO PRN ×2 (13:11→16:35)
--- NOTE | 2020-06-25 13:34 | P.PN ---
Subjective Progress Note Date: 06/25/20 Principal diagnosis: Liver lesion Patient seen and examined lying in bed. Patient states she is very tired. She denies any severe abdominal pain. Yesterday went down for paracentesis, however they stated there was not enough fluid. She is status post ventral umbilical hernia repair. She has moderate amount of fluid coming from her incision, which has opened. CT of the abdomen has been ordered per surgical services. Objective - Vital Signs Vital signs: Vital Signs Temp 96.8 F L 06/25/20 13:24 Pulse 102 H 06/25/20 13:24 Resp 13 06/25/20 13:24 BP 90/55 06/25/20 13:24 Pulse Ox 95 06/25/20 13:24 Intake & Output 06/24/20 06/25/20 06/25/20 18:59 06:59 18:59 Intake Total 930 Output Total 345 200 30 Balance -345 730 -30 Weight 52 kg Intake: Intake, IV Titration 340 Amount Sodium Chloride 0.9% 1, 240 000 ml @ 20 mls/hr IV . Q24H NETO Rx#:[id number] metroNIDAZOLE-NS PMX 500 100 mg In Saline 1 100ml.bag @ 100 mls/hr IVPB Q8HR NETO Rx#:[id number] Oral 590 Output: Drainage 95 30 Anterior Abdomen 95 30 Urine 250 200 Uretheral (Olivas) 250 200 Post Void Residual 0 Other: Voiding Method Indwelling Catheter Indwelling Catheter # Bowel Movements 1 - Exam General appearance: The patient is alert, oriented, appears in no acute distress. HET: Head is normocephalic and atraumatic. Conjunctiva pink. Sclera anicteric. Neck: Supple without lymphadenopathy. Abdomen: Soft, tender, nondistended, abdominal incision with small opening with packing in place with malodorous drainage. No guarding or rigidity. Extremities: Normal skin color and turgor. No pedal edema Skin: No rashes, mild aundice Neurological: No focal deficits. Alert and oriented.. - Labs CBC & Chem 7: 06/25/20 05:00 06/25/20 05:00 Labs: Abnormal Lab Results - Last 24 Hours (Table) 06/23/20 06/25/20 06/25/20 Range/Units 14:45 05:00 05:00 WBC 17.2 H (3.8-10.6) k/uL RDW 17.3 H (11.5-15.5) % Neutrophils # 14.8 H (1.3-7.7) k/uL Lymphocytes # 0.6 L (1.0-4.8) k/uL Monocytes # 1.3 H (0-1.0) k/uL PT 15.7 H (9.0-12.0) sec INR 1.6 H (<1.2) Sodium (137-145) mmol/L Chloride (98-107) mmol/L Carbon Dioxide 15.4 L (21.6-31.8) mmol/L Anion Gap 18.60 H (4.00-12.00) mmol/L BUN 39.0 H (9.0-27.0) mg/dL Creatinine (0.52-1.04) mg/dL Est GFR (CKD-EPI)AfAm 55.3 L (60.0-200.0) Est GFR (CKD-EPI)NonAf 47.7 L (60.0-200.0) BUN/Creatinine Ratio 32.50 H (12.00-20.00) Ratio Glucose 175 H (70-110) mg/dL Calcium 8.4 L (8.7-10.3) mg/dL Total Bilirubin 4.7 H (0.3-1.2) mg/dL AST 59 H (13-35) U/L Alkaline Phosphatase 237 H (41-126) U/L Total Protein 5.3 L (6.2-8.2) g/dL Albumin 2.90 L (3.80-4.90) g/dL Albumin/Globulin Ratio 1.21 L (1.60-3.17) g/dL 06/25/20 Range/Units 05:00 WBC (3.8-10.6) k/uL RDW (11.5-15.5) % Neutrophils # (1.3-7.7) k/uL Lymphocytes # (1.0-4.8) k/uL Monocytes # (0-1.0) k/uL PT (9.0-12.0) sec INR (<1.2) Sodium 127 L (137-145) mmol/L Chloride 96 L (98-107) mmol/L Carbon Dioxide 21 L (21.6-31.8) mmol/L Anion Gap (4.00-12.00) mmol/L BUN 54 H (9.0-27.0) mg/dL Creatinine 1.40 H (0.52-1.04) mg/dL Est GFR (CKD-EPI)AfAm (60.0-200.0) Est GFR (CKD-EPI)NonAf (60.0-200.0) BUN/Creatinine Ratio (12.00-20.00) Ratio Glucose 114 H (70-110) mg/dL Calcium 8.3 L (8.7-10.3) mg/dL Total Bilirubin 3.0 H (0.3-1.2) mg/dL AST 41 H (13-35) U/L Alkaline Phosphatase 210 H (41-126) U/L Total Protein 4.8 L (6.2-8.2) g/dL Albumin 2.0 L (3.80-4.90) g/dL Albumin/Globulin Ratio (1.60-3.17) g/dL Microbiology - Last 24 Hours (Table) 06/24/20 14:54 Urine Culture - Preliminary Urine,Catheterized 06/23/20 14:45 Blood Culture - Preliminary Blood No Growth after 24 hours 06/22/20 09:30 Gram Stain - Final Abdomen Wound Culture - Final Alpha Hemolytic Streptococcus Assessment and Plan (1) Hepatic lesion Narrative/Plan: Hepatic lesion noted on computed tomography scan of the abdomen that was done in the emergency room. Prior ultrasound of the abdomen done in November 2019 did not show any evidence of liver lesions. The lesion measured about 4 cm in the right lobe of the liver. Rule out hepatocellular carcinoma. Oncology has been consulted. Paracentesis ordered with cytology and fluid studies. Plan is for outpatient MRI of the liver 1 gonzalez are removed. Current Visit: Yes Status: Acute Priority: High Code(s): K76.9 - LIVER DISEASE, UNSPECIFIED SNOMED Code(s): 792699394 (2) Incarcerated hernia Narrative/Plan: Patient is status post exploratory laparotomy with small bowel resection and hernia repair by Dr. Paredes Current Visit: Yes Status: Acute Code(s): K46.0 - UNSP ABDOMINAL HERNIA WITH OBSTRUCTION, WITHOUT GANGRENE SNOMED Code(s): 58382263 (3) Alcoholic cirrhosis Narrative/Plan: Patient has a history of alcoholic cirrhosis of the liver with portal hypertension and refractory ascites requiring large volume paracentesis every 2 weeks on an outpatient basis. She is maintained on Lasix and Aldactone on an outpatient basis. Diuretics were currently on hold, will reinitiate today. Current Visit: No Status: Acute Code(s): K70.30 - ALCOHOLIC CIRRHOSIS OF LIVER WITHOUT ASCITES SNOMED Code(s): 142157651 (4) Ascites Narrative/Plan: Patient is status post paracentesis with 4.3 L removed. Attempt for another paracentesis, however blue pocket was too small. Current Visit: No Status: Acute Code(s): R18.8 - OTHER ASCITES SNOMED Code(s): 277257342 Plan: 1. Symptomatic and supportive care 2. Continue Aldactone and Lasix 40 mg daily 3. Continue management per surgical services 4. Oncology consulted for further recommendations for liver lesion 7. Continue lactulose as ordered, titrate to have 3-4 bowel movements daily 8. Repeat ammonia level Thank you for this consultation, we will continue to follow closely Dr. Rivera I agree with the dictator's note, documented as a scribe by Leny Scanlon.
[2020-06-25] MEDS: IPRATROPIUM-ALBUTEROL 3 ML NEB INHALATION SCH ×2 (14:00→22:02)
--- NOTE | 2020-06-25 14:32 | PN ---
PROGRESS NOTE DATE OF SERVICE: 06/25/2020 This 64-year-old woman who was admitted after repair of incarcerated ventral hernia, also had a PHILL drain which was draining purulent fluid. Alpha hemolytic streptococcus was grown from the culture. The patient is on broad-spectrum IV antibiotics. Patient also has cirrhosis of liver. Patient also had ascites but most recent ultrasound did not show any fluid at all. The patient is on 20 mL of IV fluids at this time. The patient is being closely monitored. The patient has alcoholic cirrhosis. PAST MEDICAL HISTORY: Reviewed. REVIEW OF SYSTEMS: CARDIOVASCULAR SYSTEM: No angina. RESPIRATORY SYSTEM: As mentioned earlier. GI: As mentioned earlier. : No dysuria. NERVOUS SYSTEM: No numbness or weakness. CURRENT MEDICATIONS: Current medications are reviewed and include Baskin, Tums, vitamin D3, vitamin B12, Lovenox, Lasix, Dilaudid, Cephulac. Doses are reviewed. PHYSICAL EXAMINATION: Patient is alert and oriented x3. Pulse is 108, blood pressure 93/52, respiration 20, temperature 97 degrees, pulse ox 94% on room air. HEENT: Conjunctivae normal. NECK: No jugular venous distention. CARDIOVASCULAR: S1, S2 muffled. RESPIRATORY: Breath sounds diminished at the bases. A few scattered rhonchi. ABDOMEN: Soft, nontender. No mass palpable. LEGS: No edema, no swelling. NERVOUS SYSTEM: No focal deficits. LABS: WBC 17.2, hemoglobin 11.9. INR 1.7. Sodium 127 and creatinine is 1.4. UA noted, possibly UTI. ASSESSMENT: 1. Status post repair of incarcerated ventral hernia abdominal wall with small bowel obstruction. 2. Wound infection with alpha hemolytic streptococci. 3. Ascites secondary to cirrhosis of the liver, status post large volume paracentesis, 4.3 L of serous fluid previously. Currently no fluid currently. 4. Acute renal failure with acute tubular necrosis with prerenal factors. 5. Increased WBC possibly acute urinary tract infection with sepsis. 6. History of alcoholic cirrhosis. 7. Severe protein calorie malnutrition. 8. Gait dysfunction. 9. Secondary portal hypertension. 10.Hypertension history. 11.Scoliosis. 12.Hepatosplenomegaly from cirrhosis of the liver. 13.Thrombocytopenia from cirrhosis of the liver. 14.Right lobe of the liver 4 cm lesion, awaiting MRI. 15.Hyponatremia. 16.Hypoalbuminemia. 17.Mild coagulopathy secondary to cirrhosis of the liver. 18.Increased WBC. 19.Anemia, normocytic. 20.FULL CODE. RECOMMENDATIONS AND DISCUSSION: Recommend to continue current medications, continue symptomatic treatment. Otherwise, continue the antibiotics. Discussed with Surgery at length. Recommend infectious disease evaluation to fine-tune antibiotic treatment. I recommend CAT scan of the abdomen and pelvis, also recommend to reduce the dose of Lasix to 20 mg and increase the IV fluids to 50 mL and monitor the creatinine closely. Stop Aldactone. Otherwise, supplement vitamins. The patient has significant malnutrition and I would recommend a 3- day calorie count. If the calorie count is not adequate, the patient might be a candidate for either a PEG tube placement or a PICC line and TPN as outpatient also. Overall prognosis extremely guarded because of multiple complex medical issues as mentioned earlier. Further recommendations to follow. MMODL / IJN: [id number] /
--- NOTE | 2020-06-25 15:23 | P.PN ---
Subjective Progress Note Date: 06/25/20 CHIEF COMPLAINT: Abdominal pain HISTORY OF PRESENT ILLNESS: Patient is status post exploratory laparotomy, small bowel resection and repair of incarcerated ventral hernia for strangulated ventral hernia, small bowel obstruction and small bowel ischemia. Patient continues to be very lethargic and weak. PHILL drain put out 30 mL of purulent fluid also has air present. The air that is present in the PHILL drain is due to subcutaneous air due to patient's open abdominal wound. Patient has abdominal infection at incision site. Drainage from incision site growing alpha hemolytic streptococcus. Patient does complain of abdominal pain. Patient has been having bowel movements. Her ammonia level has normalized. She's afebrile. White count has come down from 20.3-17.2. Sodium level is 127 creatinine e levated at 1.40. Patient's oral intake is poor. Case discussed with medicine service and appreciate their recommendations MRI of the liver regarding liver lesion can be completed after incisional s taples are removed. Patient seen and examined with Dr. Paredes PHYSICAL EXAM: VITAL SIGNS: Reviewed. GENERAL: Well-developed in no acute distress. HEENT: No sclera icterus. Extraocular movements grossly intact. Moist buccal mucosa. Head is atraumatic, normocephalic. ABDOMEN: Soft. Nondistended Patient does have PHILL drain with purulent fluid. Abdominal incision with foul smelling yellowish clear drainage. The abdominal incision opening has increased in size. NEUROLOGIC: Alert and oriented. But appears to be more lethargic Cranial nerves II through XII grossly intact. ASSESSMENT: 1. strangulated ventral hernia, small bowel obstruction and small bowel ischemia status post exploratory laparotomy, small bowel resection and repair of incarcerated ventral hernia. Postop day #10 2. Infection at abdominal incision site 3. Liver lesion. Followed by GI and oncology service. 4. History of liver cirrhosis and ascites requiring paracentesis every 1-2 weeks. Patient status post paracentesis during this admission with 4.3 L removed 5. Decreased urine output improved with IV fluid boluses 6. UTI awaiting urine culture 7. Hyponatremia management per medicine service PLAN: -We'll check a computed tomography scan of the abdomen and pelvis with oral contrast with a 4 hour prep -Consult infectious disease regarding abdominal wound infection -Increasing fluids normal saline to 50 mL an hour due to hyponatremia -Continue IV Zosyn and Flagyl -Continue full liquid diet -Add nebulizer treatments per medicine service recommendations regarding atelectasis -Continue pain medication as needed -Encouraged patient to increase activity -Encouraged patient to use incentive spirometer -She had prophylaxis Protonix and DVT prophylaxis Lovenox Physician Technician [employer] note has been reviewed by physician. Signing provider agrees with the documented findings, assessment, and plan of care. Objective - Vital Signs Vital signs: Vital Signs Temp 96.8 F L 06/25/20 13:24 Pulse 102 H 06/25/20 13:24 Resp 13 06/25/20 13:24 BP 90/55 06/25/20 13:24 Pulse Ox 95 06/25/20 13:24 Intake & Output 06/24/20 06/25/20 06/25/20 18:59 06:59 18:59 Intake Total 930 Output Total 345 200 30 Balance -345 730 -30 Weight 52 kg Intake: Intake, IV Titration 340 Amount Sodium Chloride 0.9% 1, 240 000 ml @ 20 mls/hr IV . Q24H NETO Rx#:[id number] metroNIDAZOLE-NS PMX 500 100 mg In Saline 1 100ml.bag @ 100 mls/hr IVPB Q8HR NETO Rx#:[id number] Oral 590 Output: Drainage 95 30 Anterior Abdomen 95 30 Urine 250 200 Uretheral (Olivas) 250 200 Post Void Residual 0 Other: Voiding Method Indwelling Catheter Indwelling Catheter # Bowel Movements 1 - Labs CBC & Chem 7: 06/25/20 05:00 06/25/20 05:00 Labs: Abnormal Lab Results - Last 24 Hours (Table) 06/23/20 06/25/20 06/25/20 Range/Units 14:45 05:00 05:00 WBC 17.2 H (3.8-10.6) k/uL RDW 17.3 H (11.5-15.5) % Neutrophils # 14.8 H (1.3-7.7) k/uL Lymphocytes # 0.6 L (1.0-4.8) k/uL Monocytes # 1.3 H (0-1.0) k/uL PT 15.7 H (9.0-12.0) sec INR 1.6 H (<1.2) Sodium (137-145) mmol/L Chloride (98-107) mmol/L Carbon Dioxide 15.4 L (21.6-31.8) mmol/L Anion Gap 18.60 H (4.00-12.00) mmol/L BUN 39.0 H (9.0-27.0) mg/dL Creatinine (0.52-1.04) mg/dL Est GFR (CKD-EPI)AfAm 55.3 L (60.0-200.0) Est GFR (CKD-EPI)NonAf 47.7 L (60.0-200.0) BUN/Creatinine Ratio 32.50 H (12.00-20.00) Ratio Glucose 175 H (70-110) mg/dL Calcium 8.4 L (8.7-10.3) mg/dL Total Bilirubin 4.7 H (0.3-1.2) mg/dL AST 59 H (13-35) U/L Alkaline Phosphatase 237 H (41-126) U/L Total Protein 5.3 L (6.2-8.2) g/dL Albumin 2.90 L (3.80-4.90) g/dL Albumin/Globulin Ratio 1.21 L (1.60-3.17) g/dL 06/25/20 Range/Units 05:00 WBC (3.8-10.6) k/uL RDW (11.5-15.5) % Neutrophils # (1.3-7.7) k/uL Lymphocytes # (1.0-4.8) k/uL Monocytes # (0-1.0) k/uL PT (9.0-12.0) sec INR (<1.2) Sodium 127 L (137-145) mmol/L Chloride 96 L (98-107) mmol/L Carbon Dioxide 21 L (21.6-31.8) mmol/L Anion Gap (4.00-12.00) mmol/L BUN 54 H (9.0-27.0) mg/dL Creatinine 1.40 H (0.52-1.04) mg/dL Est GFR (CKD-EPI)AfAm (60.0-200.0) Est GFR (CKD-EPI)NonAf (60.0-200.0) BUN/Creatinine Ratio (12.00-20.00) Ratio Glucose 114 H (70-110) mg/dL Calcium 8.3 L (8.7-10.3) mg/dL Total Bilirubin 3.0 H (0.3-1.2) mg/dL AST 41 H (13-35) U/L Alkaline Phosphatase 210 H (41-126) U/L Total Protein 4.8 L (6.2-8.2) g/dL Albumin 2.0 L (3.80-4.90) g/dL Albumin/Globulin Ratio (1.60-3.17) g/dL Microbiology - Last 24 Hours (Table) 06/24/20 14:54 Urine Culture - Preliminary Urine,Catheterized 06/23/20 14:45 Blood Culture - Preliminary Blood No Growth after 24 hours 06/22/20 09:30 Gram Stain - Final Abdomen Wound Culture - Final Alpha Hemolytic Streptococcus
[2020-06-25] MEDS: SODIUM CHLORIDE 0.9% 1,000 ML IV SCH (17:54)
--- NOTE | 2020-06-25 19:02 | CT ---
EXAMINATION TYPE: CT abdomen pelvis wo con DATE OF EXAM: 06/25/2020 COMPARISON: 06/15/2020 HISTORY: Abdominal pain, leukocytosis CT DLP: 355.1 mGycm Automated exposure control for dose reduction was used. TECHNIQUE: Helical acquisition of images was performed from the lung bases through the pelvis. CONTRAST: Administration of oral contrast. No IV contrast. Lack of IV contrast limits evaluation of the vascula ture and viscera. FINDINGS: LUNG BASES: Minimal atelectasis. LIVER: Cirrhotic contour. BILIARY SYSTEM: Cholelithiasis. PANCREAS: No peripancreatic inflammation. SPLEEN: Prominent in size. ADRENALS: Not well visualized. KIDNEYS: No hydronephrosis bilaterally. BOWEL: Patient is status post hernia raphe with surgical gonzalez and subcutaneous surgical drain ove r the midline lower abdomen. There is air within the subcutaneous fat down to the level of the abdomi nal wall, without air definitively seen traversing the peritoneal boundary to suggest complete dehisc ence into the abdominal cavity. There is oral contrast to the distal small bowel, to the level of the pelvic anastomosis. There is no abnormal oral contrast extravasation to suggest bowel leak. There is decreased distention of the small bowel loops versus prior comparison. PERITONEUM: There is moderate pneumoperitoneum scattered throughout the abdomen and pelvis. Large vo lume ascites. There are bilateral obturator and inguinal and right femoral hernia is filled with asci pearl. There is also ascites tracking down into the left ischio anal fossa. LYMPH NODES: No lymphadenopathy within limitations of noncontrast examination ascites. PELVIS: Urinary bladder nondistended with Olivas catheter. Uterus unremarkable. VASCULATURE: No abdominal aortic aneurysm. MUSCULOSKELETAL: There is severe S-shaped scoliosis of the spine. IMPRESSION: 1. Ventral lower abdomen herniorrhaphy postsurgical changes with dehiscent appearing subcutaneous wo und with surgical gonzalez, subcutaneous emphysema, and surgical drain. Subcutaneous emphysema is down to the level of the abdominal wall. There is no gas seen traversing the peritoneal layer to suggest dehiscence into the abdominal cavity. 2. There is moderate pneumoperitoneum, which may be an expected postoperative finding. 3. Oral contrast throughout the small bowel with no evidence of abnormal oral contrast extravasation to suggest leak. Decreased dilatation of the small bowel loops versus 06/15/2020 comparison. 4. Large volume ascites. 5. Cholelithiasis. 6. Cirrhotic liver.
--- NOTE | 2020-06-25 20:31 | P.PN ---
Subjective Progress Note Date: 06/25/20 Principal diagnosis: Abd pain Patient seen and examined this am. She expresses feeling more tired today. Her incision is opena nd draining and CT has been ordered. Objective - Vital Signs Vital signs: Vital Signs Temp 96.8 F L 06/25/20 13:24 Pulse 109 H 06/25/20 16:39 Resp 20 06/25/20 16:39 BP 99/68 06/25/20 16:39 Pulse Ox 95 06/25/20 13:24 Intake & Output 06/25/20 06/25/20 06/26/20 06:59 18:59 06:59 Intake Total 930 Output Total 200 40 Balance 730 -40 Intake: Intake, IV Titration 340 Amount Sodium Chloride 0.9% 1, 240 000 ml @ 50 mls/hr IV . Q20H NET[facility] Rx#:[id number] metroNIDAZOLE-NS PMX 500 100 mg In Saline 1 100ml.bag @ 100 mls/hr IVPB Q8HR NETO Rx#:[id number] Oral 590 Output: Drainage 40 Anterior Abdomen 40 Urine 200 Uretheral (Olivas) 200 Other: Voiding Method Indwelling Catheter - Exam General appearance: thin - EENT Eyes: anicteric sclerae, EOMI ENT: hearing grossly normal, normal oropharynx - Neck Neck: no lymphadenopathy - Respiratory Respiratory: bilateral: diminished - Cardiovascular Rhythm: regular Heart sounds: normal: S1, S2 Abnormal Heart Sounds: no systolic murmur, no diastolic murmur, no rub, no S3 Gallop, no S4 Gallop, no click, no other leg Peripheral Edema: bilateral: None - Gastrointestinal Midline incision gonzalez are intact, abdomen is firm, Distended mild drainage from recent surgical incision and area open General gastrointestinal: distended, splenomegaly - Neurologic Neurologic: CNII-XII intact - Musculoskeletal Musculoskeletal: strength equal bilaterally - Psychiatric Patient is lethargic,awakens to stimuli - Labs CBC & Chem 7: 06/25/20 05:00 06/25/20 05:00 Labs: Abnormal Lab Results - Last 24 Hours (Table) 06/25/20 06/25/20 06/25/20 Range/Units 05:00 05:00 05:00 WBC 17.2 H (3.8-10.6) k/uL RDW 17.3 H (11.5-15.5) % Neutrophils # 14.8 H (1.3-7.7) k/uL Lymphocytes # 0.6 L (1.0-4.8) k/uL Monocytes # 1.3 H (0-1.0) k/uL PT 15.7 H (9.0-12.0) sec INR 1.6 H (<1.2) Sodium 127 L (137-145) mmol/L Chloride 96 L (98-107) mmol/L Carbon Dioxide 21 L (22-30) mmol/L BUN 54 H (7-17) mg/dL Creatinine 1.40 H (0.52-1.04) mg/dL Glucose 114 H (74-99) mg/dL Calcium 8.3 L (8.4-10.2) mg/dL Total Bilirubin 3.0 H (0.2-1.3) mg/dL AST 41 H (14-36) U/L Alkaline Phosphatase 210 H (38-126) U/L Total Protein 4.8 L (6.3-8.2) g/dL Albumin 2.0 L (3.5-5.0) g/dL Microbiology - Last 24 Hours (Table) 06/24/20 14:54 Urine Culture - Final Urine,Catheterized 06/23/20 14:45 Blood Culture - Preliminary Blood No Growth after 48 hours 06/22/20 09:30 Anaerobic Culture - Preliminary Abdomen Anaerobic Gm Positive Bacill Assessment and Plan Plan: CT scan - abdomen: report reviewed CT scan - pelvis: report reviewed Assessment and Plan Hepatic lesion: - Further evaluation required with MRI, ok after gonzalez removed. - After MRI further recs Abdominal Ascites: - Status Post Paracentesis 4.3L - Cytology Negative - Attempt to repeat 06/24/20 - Per radiology not adequate fluid to perform paracentesis. Incarcerated Hernia: Ichemic Bowel - Status post exploratory lap and small bowel resection and repair of incarcerated ventral hernia for strangulated ventral hernia, small bowel obstruction and small bowel ischemia - Incision with drainage and opening, Gen Surgery following and CT imaging ord ered - AFP not elevated MRI after gonzalez removed Increased Bilirubin Coagulaopathy: - Repeat COags in am Daily CBC, CMP MOnitor for infection Physician attest: I have completed the full history and physical and agree with above dictation.
[2020-06-26] MEDS ORDERED: DEXTROSE 50% SYRINGE 50 ML IVP ONE ×3 (07:05→08:44)
[2020-06-26 07:10] LABS: Glucose,Whole Blood 32 mg/dL (75-99)
[2020-06-26 07:18] LABS: Glucose,Whole Blood 185 mg/dL (75-99)
[2020-06-26 07:56] LABS: Glucose,Whole Blood 127 mg/dL (75-99)
[2020-06-26 08:06] LABS: Anisocytosis Slight; HCT 40.8 % (34.0-46.0); HGB 11.8 gm/dL (11.4-16.0); Hypochromasia Marked; MCH 27.7 pg (25.0-35.0); MCHC 28.8 g/dL (31.0-37.0); Macrocytosis Slight; Mean Platelet Volume 8.6; Platelet Count 199 k/uL (150-450); RBC 4.25 m/uL (3.80-5.40)
[2020-06-26 08:07] LABS: AST 562 U/L (14-36); Albumin 1.6 g/dL (3.5-5.0); Albumin/Globulin Ratio 0.7; Alkaline Phosphatase 109 U/L (38-126); Blood Urea Nitrogen 57 mg/dL (7-17); Calcium 7.8 mg/dL (8.4-10.2); Chloride 100 mmol/L (98-107); Globulin 2.4 g/dL; Glucose 129 mg/dL (74-99); Sodium 131 mmol/L (137-145); Total Bilirubin 3.7 mg/dL (0.2-1.3)
[2020-06-26] MEDS: IPRATROPIUM-ALBUTEROL 3 ML NEB INHALATION SCH ×2 (08:11→15:57)
[2020-06-26] MEDS: metroNIDAZOLE-NS PMX 500 MG in SALINE 1 100ML.BAG IVPB SCH (08:13)
[2020-06-26 08:19] LABS: Band Neutrophils % 4 %; Metamyelocytes # (M) 0.35 k/uL (0); Metamyelocytes % 1 %; Neutrophils % (M) 91 %; Nucleated Red Blood Cells 1 /100 WBC (0-0); Total Cells Counted 200
[2020-06-26 08:20] LABS: Crenated RBC Present; Poikilocytosis (M) Present
[2020-06-26] MEDS ORDERED: NOREPINEPHRIN 4 MG-0.9% NS PMX 4 MG/250 ML ML IV ONE (08:26)
[2020-06-26 08:27] LABS: Carbon Dioxide <5 mmol/L (22-30); Potassium 6.4 mmol/L (3.5-5.1)
[2020-06-26] MEDS ORDERED: CALCIUM GLUCONATE 2 GM in SODIUM CHLORIDE 0.9% 100 ML IVPB ONE (08:38)
[2020-06-26] MEDS ORDERED: SODIUM BICARB 8.4% 50 ML SYR (1 MEQ/ML) IV STA ×2 (08:42→10:11)
[2020-06-26] MEDS ORDERED: SODIUM BICARB 8.4% 50 ML SYR (1 MEQ/ML) ONE (08:43)
[2020-06-26] MEDS ORDERED: SODIUM CHLORIDE 0.9% 150 ML with VASOPRESSIN 60 UNIT IV SCH ×2 (08:45)
[2020-06-26] MEDS ORDERED: NOREPINEPHRINE 32 MG in SODIUM CHLORIDE 0.9% 218 ML IV SCH (08:45)
[2020-06-26] MEDS ORDERED: DEXTROSE 5% IN WATER 1,000 ML with SODIUM BICARB (1 MEQ/ML) 150 ML IV SCH (08:45)
[2020-06-26] MEDS ORDERED: propofoL 100 ML IV ONE (08:51)
[2020-06-26] MEDS ORDERED: FUROSEMIDE 20 MG TAB PO SCH (09:00)
--- NOTE | 2020-06-26 09:33 | XR ---
EXAMINATION TYPE: XR chest 1V portable DATE OF EXAM: 06/26/2020 COMPARISON: Chest x-ray 06/21/2020 HISTORY: Intubated TECHNIQUE: Single frontal view of the chest is obtained. FINDINGS: Endotracheal tube is overlying the tracheal air column, distal tip of tube is approximatel y 8 mm from the juan. There is no evident pneumothorax. Orogastric tube is in place, side-port of t he tube is within the distal thoracic esophagus. Patchy basilar density persists. There is a marked s coliosis. There are overlying leads. Cardiac mediastinal silhouette is not significantly changed. IMPRESSION: Endotracheal tube is measuring less than 1 cm from the juan. Orogastric tube shows the side port within the distal thoracic esophagus. Correlate for basilar atelectasis versus pneumonia. A Yellow level critical message alert has been initiated for Herlinda Gregg MD~[id number] via the [employer] Critical Results System on 06/26/2020 9:30 AM. This message alert has been sent to Herlinda Gregg MD~[id number] via the preferences provided by the clinician for the receipt of Radiology Critical Finding s. Message ID [id number].
[2020-06-26] MEDS: PIPERACILLIN-TAZOBACTAM 3.375 GM in SODIUM CHLORIDE 0.9% 100 ML IVPB SCH ×3 (10:00)
[2020-06-26 10:03] LABS: ABG Base Excess -20.9 mmol/L; ABG Oxygen Saturation 99.7 % (94-97); ABG PCO2 36 mmHg (35-45); ABG PO2 >400 mmHg (83-108); ABG TCO2 11 mmol/L (19-24)
[2020-06-26 10:05] LABS: ABG HCO3 10 mmol/L (21-25); ABG PH 7.04 (7.35-7.45); Allen Test Performed? no
--- NOTE | 2020-06-26 10:07 | XR ---
EXAMINATION TYPE: [facility]R [facility] DATE OF EXAM: 06/26/2020 COMPARISON: 06/26/2020 HISTORY: 64-year-old female central line placement TECHNIQUE: Single frontal view of the chest is obtained. FINDINGS: ET tube tip 2.5 cm from the juan. NG tube sidehole just above the GE junction. It can be advanced b y 5 cm stomach. Right subclavian CVC tip at the inferior cavoatrial junction. Patient is rotated towa rds the left. There is patchy retrocardiac and left basilar opacity. Low lung volumes. IMPRESSION: 1. Right subclavian CVC tip in the inferior right atrium probably near the inferior cavoatrial juncti on. 2. Advance the NG tube by 5 cm so that the sidehole enters the stomach. 3. Patchy retrocardiac and left basilar opacity is unchanged.
[2020-06-26] MEDS: LACTULOSE 20 GM/30 ML CUP PO SCH (11:29)
[2020-06-26] MEDS: CYANOCOBALAMIN 500 MCG TAB PO SCH (11:29)
[2020-06-26] MEDS: SERTRALINE 100 MG TAB PO SCH (11:29)
[2020-06-26] MEDS: HEPARIN SODIUM,PORCINE/PF 5,000 UNIT/0.5 ML SYRINGE SQ SCH ×2 (11:32→11:49)
[2020-06-26] MEDS ORDERED: SODIUM CHLORIDE 0.9% 2,000 ML IV ONE (11:35)
[2020-06-26] MEDS ORDERED: SODIUM CHLORIDE 0.9% 1,000 ML IV SCH (11:45)
[2020-06-26] MEDS ORDERED: MULTIVITAMINS, THERA 1 EACH TAB PO SCH (12:00)
[2020-06-26] MEDS ORDERED: THIAMINE 100 MG TAB PO SCH (12:00)
[2020-06-26] MEDS ORDERED: FOLIC ACID 1 MG TAB PO SCH (12:00)
[2020-06-26 12:05] LABS: Glucose,Whole Blood 205 mg/dL (75-99)
--- NOTE | 2020-06-26 12:49 | P.PN ---
Subjective Progress Note Date: 06/26/20 Principal diagnosis: Liver lesion Patient is seen and examined in the ICU. She was transferred here this morning after an A-team was called for hypotension and hypothermia. He was subsequently sedated and intubated, started on vasopressors. Her is at the bedside. Family is on their way to discuss patient's future plan of care, including possible comfort measures. Objective - Vital Signs Vital signs: Vital Signs Temp 97.4 F L 06/26/20 04:41 Pulse 115 H 06/26/20 09:50 Resp 24 06/26/20 09:35 BP 89/46 06/26/20 09:35 Pulse Ox 99 06/26/20 09:50 Intake & Output 06/25/20 06/26/20 06/26/20 18:59 06:59 18:59 Intake Total 600 Output Total 40 210 Balance -40 390 Intake: Intake, IV Titration 600 Amount Sodium Chloride 0.9% 1, 600 000 ml @ 50 mls/hr IV . Q20H [facility] Rx#:[id number] Output: Drainage 40 10 Anterior Abdomen 40 10 Urine 200 Other: Voiding Method Indwelling Catheter ABP, PAP, CO, CI - Last Documented Arterial Blood Pressure 109/50 - Exam General appearance: The patient is sedated on mechanical ventilation HET: Head is normocephalic and atraumatic. Conjunctiva pink. Sclera anicteric. Neck: Supple without lymphadenopathy. Abdomen: Soft, tender, mildly distended, abdominal incision with small opening with packing in place with malodorous drainage. No guarding or rigidity. Extremities: Normal skin color and turgor. No pedal edema Skin: No rashes, mild jaundice Neurological: Sedated on mechanical ventilation - Labs CBC & Chem 7: 06/26/20 07:11 06/26/20 07:11 Labs: Abnormal Lab Results - Last 24 Hours (Table) 06/26/20 06/26/20 06/26/20 Range/Units 07:04 07:11 07:11 WBC 35.0 H (3.8-10.6) k/uL MCHC 28.8 L (31.0-37.0) g/dL RDW 17.0 H (11.5-15.5) % Neutrophils # (Manual) 33.20 H (1.3-7.7) k/uL Lymphocytes # (Manual) 0.70 L (1.0-4.8) k/uL Metamyelocytes # (Man) 0.35 H (0) k/uL Nucleated RBCs 1 H (0-0) /100 WBC ABG pH (7.35-7.45) ABG pO2 (83-108) mmHg ABG HCO3 (21-25) mmol/L ABG Total CO2 (19-24) mmol/L ABG O2 Saturation (94-97) % Sodium 131 L (137-145) mmol/L Potassium 6.4 H* (3.5-5.1) mmol/L Carbon Dioxide <5 L* (22-30) mmol/L BUN 57 H (7-17) mg/dL Glucose 129 H (74-99) mg/dL POC Glucose (mg/dL) 32 L (75-99) mg/dL Plasma Lactic Acid Peter (0.7-2.0) mmol/L Calcium 7.8 L (8.4-10.2) mg/dL Total Bilirubin 3.7 H (0.2-1.3) mg/dL AST 562 H (14-36) U/L Total Protein 4.0 L (6.3-8.2) g/dL Albumin 1.6 L (3.5-5.0) g/dL 06/26/20 06/26/20 06/26/20 Range/Units 07:11 07:15 07:55 WBC (3.8-10.6) k/uL MCHC (31.0-37.0) g/dL RDW (11.5-15.5) % Neutrophils # (Manual) (1.3-7.7) k/uL Lymphocytes # (Manual) (1.0-4.8) k/uL Metamyelocytes # (Man) (0) k/uL Nucleated RBCs (0-0) /100 WBC ABG pH (7.35-7.45) ABG pO2 (83-108) mmHg ABG HCO3 (21-25) mmol/L ABG Total CO2 (19-24) mmol/L ABG O2 Saturation (94-97) % Sodium (137-145) mmol/L Potassium (3.5-5.1) mmol/L Carbon Dioxide (22-30) mmol/L BUN (7-17) mg/dL Glucose (74-99) mg/dL POC Glucose (mg/dL) 185 H 127 H (75-99) mg/dL Plasma Lactic Acid Peter 15.8 H* (0.7-2.0) mmol/L Calcium (8.4-10.2) mg/dL Total Bilirubin (0.2-1.3) mg/dL AST (14-36) U/L Total Protein (6.3-8.2) g/dL Albumin (3.5-5.0) g/dL 06/26/20 Range/Units 09:59 WBC (3.8-10.6) k/uL MCHC (31.0-37.0) g/dL RDW (11.5-15.5) % Neutrophils # (Manual) (1.3-7.7) k/uL Lymphocytes # (Manual) (1.0-4.8) k/uL Metamyelocytes # (Man) (0) k/uL Nucleated RBCs (0-0) /100 WBC ABG pH 7.04 L* (7.35-7.45) ABG pO2 >400 H (83-108) mmHg ABG HCO3 10 L* (21-25) mmol/L ABG Total CO2 11 L (19-24) mmol/L ABG O2 Saturation 99.7 H (94-97) % Sodium (137-145) mmol/L Potassium (3.5-5.1) mmol/L Carbon Dioxide (22-30) mmol/L BUN (7-17) mg/dL Glucose (74-99) mg/dL POC Glucose (mg/dL) (75-99) mg/dL Plasma Lactic Acid Peter (0.7-2.0) mmol/L Calcium (8.4-10.2) mg/dL Total Bilirubin (0.2-1.3) mg/dL AST (14-36) U/L Total Protein (6.3-8.2) g/dL Albumin (3.5-5.0) g/dL Microbiology - Last 24 Hours (Table) 06/24/20 14:54 Urine Culture - Final Urine,Catheterized 06/23/20 14:45 Blood Culture - Preliminary Blood No Growth after 48 hours 06/22/20 09:30 Anaerobic Culture - Preliminary Abdomen Anaerobic Gm Positive Bacill Assessment and Plan (1) Hepatic lesion Narrative/Plan: Hepatic lesion noted on computed tomography scan of the abdomen that was done in the emergency room. Prior ultrasound of the abdomen done in November 2019 did not show any evidence of liver lesions. The lesion measured about 4 cm in the right lobe of the liver. Rule out hepatocellular carcinoma. Oncology has been consulted. Paracentesis ordered with cytology and fluid studies. Plan is for outpatient MRI of the liver 1 gonzalez are removed. Current Visit: Yes Status: Acute Priority: High Code(s): K76.9 - LIVER DISEASE, UNSPECIFIED SNOMED Code(s): 997802822 (2) Incarcerated hernia Narrative/Plan: Patient is status post exploratory laparotomy with small bowel resection and hernia repair by Dr. Paredes Current Visit: Yes Status: Acute Code(s): K46.0 - UNSP ABDOMINAL HERNIA WITH OBSTRUCTION, WITHOUT GANGRENE SNOMED Code(s): 19281671 (3) Alcoholic cirrhosis Narrative/Plan: Patient has a history of alcoholic cirrhosis of the liver with portal hypertension and refractory ascites requiring large volume paracentesis every 2 weeks on an outpatient basis. She is maintained on Lasix and Aldactone on an outpatient basis. Diuretics were currently on hold, reinitiated Has been transferred to the ICU this morning for hypotension and hypothermia. Patient is end-stage liver disease, this has been discussed with the patient's . Patient is currently not a candidate for liver transplant due to only recent cessation of alcohol use. Current Visit: No Status: Acute Code(s): K70.30 - ALCOHOLIC CIRRHOSIS OF LIVER WITHOUT ASCITES SNOMED Code(s): 939061038 (4) Ascites Narrative/Plan: Patient is status post paracentesis with 4.3 L removed. Attempt for another paracentesis, however blue pocket was too small. Current Visit: No Status: Acute Code(s): R18.8 - OTHER ASCITES SNOMED Code(s): 814876466 Plan: 1. Symptomatic and supportive care 2. Continue Aldactone and Lasix 40 mg daily 3. Continue medical management per ICU 4. Oncology on consult for liver lesions 5. Continue lactulose as ordered, titrate to have 3-4 bowel movements daily 6. Patient was had with patient's who is at the bedside regarding end- stage liver disease and poor prognosis. He will further discuss future plan of care including possible comfort care once her family arrives. Thank you for this consultation, we will continue to follow closely Dr. Rivera I agree with the dictator's note, documented as a scribe by Leny Scanlon.
--- NOTE | 2020-06-26 13:01 | PCN ---
PROCEDURE NOTE OPERATIVE REPORT: Placement of a right subclavian triple-lumen catheter. PREOPERATIVE DIAGNOSIS: Septic shock, abdominal sepsis, hypotension, and severe metabolic acidosis. POSTOPERATIVE DIAGNOSIS: Septic shock, abdominal sepsis, hypotension, and severe metabolic acidosis. ANESTHESIA USED: 2 mL of 1% lidocaine. DESCRIPTION OF PROCEDURE: The patient was placed in a Trendelenburg position, the area of the right subclavian region was prepared in a sterile fashion. Drapes were applied. The area below the right clavicle was anesthetized. Then using the infraclavicular approach, the right subclavian vein was cannulated, a guidewire was placed, the triple-lumen catheter was inserted over the guidewire, and the guidewire was removed. Good blood flow noted in the 3 different ports of the triple-lumen catheter. Chest x-ray postoperatively showed no complications and adequate placement of the line. The line was secured using 3.0 silk sutures. MMODL / IJN: [id number] /
--- NOTE | 2020-06-26 13:01 | PCN ---
PROCEDURE NOTE OPERATIVE REPORT: Placement of the right brachial arterial line. PREOPERATIVE DIAGNOSIS: Acute septic shock and respiratory failure. POSTOPERATIVE DIAGNOSIS: Acute septic shock and respiratory failure. ANESTHESIA USED: None deployed. DESCRIPTION OF PROCEDURE: The patient was placed in the supine position. The right brachial area was prepared in a sterile fashion and drapes were applied. The right brachial artery was palpated, cannulated easily, a guidewire was placed. A Cook catheter was inserted over the guidewire, and the guidewire was removed. Good blood flow, good waveform noted. No evidence of any complications. The line was secured using 3.0 silk sutures. MMODL / IJN: [id number] /
[2020-06-26 13:21] VITALS: BP 84/56; TEMP 98.1
--- NOTE | 2020-06-26 13:21 | P.CNPUL ---
History of Present Illness Consult date: 06/26/20 Requesting physician: Michael Paredes Reason for consult: dyspnea, other Chief complaint: Acute septic shock History of present illness: 64-year-old white female patient that was admitted to the hospital on 06/15/2020 when she came in to the emergency department with complaints of abdominal pain and nausea, patient's CAT scan showed an incarcerated umbilical hernia and evidence of small bowel obstruction. She was taken to the OR and underwent exploratory laparotomy, small bowel resection, and repair of incarcerated ventral hernia. Patient underwent abdominal paracentesis for ascites secondary to cirrhosis of the liver. She has a extensive medical history including history of alcoholic cirrhosis, secondary portal hypertension, hypertension, hyperlipidemia, previous history of myocardial infarction, CVA/TIA, anxiety, former smoker. On the 06/26/2020 rapid response team was called to the bedside for concern of hypotension, and patient's blood pressure was in the 60s systolic, increased shortness of breath, hypoxia. Patient's stated that patient has been having abdominal pain, and she was receiving IV Dilaudid with little relief, CT of the abdomen and pelvis was completed yesterday in the evening showing postsurgical changes in the ventral lower abdomen, with dehiscence-appearing subcutaneous wound with surgical gonzalez, subcutaneous emphysema and surgical drain, subcutaneous emphysema was down to the level of the abdominal wall, there was no gas seen traversing the peritoneal layer to suggest dehiscence into the abdominal cavity. There was moderate pneumoperitoneum which was an expected postoperative finding, and oral contrast throughout the small bowel with no evidence of abnormal oral contrast extravasation to suggest a leak. There was large volume ascites, cholelithiasis and a cirrhotic liver noted. Patient's lactic acid was elevated at 15.8, and p atient had multiple abnormalities on her lab work including severe metabolic acidosis, acute kidney injury, hyperkalemia with potassium of 6.4, CO2 less than 5, creatinine is still pending, BUN is up to 57, elevation of liver enzymes and AST is up to 562, ALT is still pending at this time, leukocytosis and white blood cell count is up to 35,000 and today's labs, hemoglobin is 11.8, platelet count is 199. Nor is 1.6 and this was from yesterday's labs. Stat blood gas was obtained showing pO2 of greater than 400, pCO2 of 36, and pH of 7.04, patient was initiated on fluid boluses, sepsis workup was initiated, she was already on a combination of Zosyn and Flagyl, blood cultures have been sent, but consulted ID service, she was given 3 L of fluid boluses, she was transferred to the intensive care unit, she was emergently intubated and placed on mechanical ventilator support, currently on assist control mode of ventilation with a rate of 24, tidal volume 350, FiO2 100%, PEEP of 5. She was given 2 A of sodium bicarbonate, and D5W with 3 A of sodium bicarbonate at a rate of 125 was initiat ed, she was given 2 amps of calcium gluconate, initiated on vasopressor support in the form of norepinephrine and vasopressin, norepinephrine is currently infusing at 0.44, vasopressin is infusing at 0.03 units per hour. She is sedated on Diprivan. Repeat blood gas is pending at this time, her blood pressure responded nicely to the above-mentioned interventions, central line venous catheter was placed in the right subclavian area, and right brachial a line was established for blood pressure monitoring and her current blood pressure is in the low 100s systolic. She remains tachycardic. She continues on antibiotics, surgery came to the bedside, and spoke to the family, a partially patient is not a surgical candidate, and possibility of comfort care as been discussed by the surgery with the patient's view of her poor prognosis. Review of Systems All systems: negative Constitutional: Reports weakness, Denies chills, Denies fever Eyes: denies blurred vision, denies pain Ears, nose, mouth and throat: Denies headache, Denies sore throat Cardiovascular: Denies chest pain, Denies shortness of breath Respiratory: Reports dyspnea Gastrointestinal: Reports abdominal pain, Denies diarrhea, Denies nausea, Denies vomiting Genitourinary: Denies dysuria, Denies hematuria Musculoskeletal: Denies myalgias Integumentary: Denies pruritus, Denies rash Neurological: Reports change in mentation, Denies numbness, Denies weakness Psychiatric: Denies anxiety, Denies depression Endocrine: Denies fatigue, Denies weight change Past Medical History Past Medical History: CVA/TIA, Hyperlipidemia, Hypertension, Liver Disease, Memory Impairment, Myocardial Infarction ([place]) Additional Past Medical History / Comment(s): diagnosed with liver damage from ETOH in '11(alcoholic liver dz,cirrhosis/ascities), past uti, scoliosis. pt stated at some point in time she had a small heart attack that was found on an ekg. "mini strokes", ascites and multi paracentesis, abdominal pain, gas pain, macrocytic anemia, essential tremors, varicose vein hemorrhage Last Myocardial Infarction Date:: unk History of Any Multi-Drug Resistant Organisms: None Reported Past Surgical History: Orthopedic Surgery, Tubal Ligation Additional Past Surgical History / Comment(s): ORIF rt tibia,laparoscopy, paracentesis, EGD, acites Past Anesthesia/Blood Transfusion Reactions: No Reported Reaction Additional Past Anesthesia/Blood Transfusion Reaction / Comment(s): pt has had previous platelet transfusions for paracentesis Past Psychological History: Anxiety, Depression Additional Psychological History / Comment(s): lives with spouse, drives, is independant Smoking Status: Former smoker Past Alcohol Use History: Daily Additional Past Alcohol Use History / Comment(s): started smoking 1973 and quit 2006 smoked 1ppd. pt stated used to be a daily drinker-quit the daily drinking 09-25-14 Past Drug Use History: Marijuana - Past Family History Father Family Medical History: Cancer Additional Family Medical History / Comment(s): dad is alive at age 94 has kidney cancer Mother Family Medical History: No Reported History Additional Family Medical History / Comment(s): at age 92. had scoliosis Medications and Allergies Home Medications Medication Instructions Recorded Confirmed Type Multivit with Calcium,Iron,Min 1 tab PO DAILY 09/25/14 06/15/20 History [Women's Daily Multivitamin] Magnesium Oxide [Mag-Ox] 400 mg PO DAILY 03/26/18 06/15/20 History Sertraline [Zoloft] 100 mg PO DAILY 03/26/18 06/15/20 History rOPINIRole HCL [Requip] 0.5 mg PO HS 03/26/18 06/15/20 History Metoprolol Tartrate [Lopressor] 25 mg PO BID #60 tab 03/28/18 06/15/20 Rx Furosemide [Lasix] 80 mg PO DAILY 05/09/18 06/15/20 History Spironolactone [Aldactone] 100 mg PO BID 05/09/18 06/15/20 History Calcium Carbonate [Calcium] 1,200 mg PO DAILY 09/28/18 06/15/20 History Omeprazole 20 mg PO DAILY PRN 09/28/18 06/15/20 History Cholecalciferol [Vitamin D3 (25 1,000 unit PO DAILY 12/16/19 06/15/20 History Mcg = 1000 Iu)] Cyanocobalamin (Vitamin B-12) 500 mcg PO DAILY 01/17/20 06/15/20 History [Vitamin B-12] Potassium Chloride ER [K-Dur 20] 40 meq PO BID 05/01/20 06/15/20 History Furosemide [Lasix] 40 mg PO HS 06/15/20 06/15/20 History Allergies Allergy/AdvReac Type Severity Reaction Status Date / Time No Known Allergies Allergy Verified 06/15/20 16:34 Physical Exam Vitals: Vital Signs Temp Pulse Pulse Resp BP BP BP 06/26/20 12:40 98.4 F 55 L 18 126/65 06/26/20 12:00 98.1 F 129 H 25 H 91/53 06/26/20 11:30 123 H 24 06/26/20 11:00 121 H 25 H 06/26/20 10:30 120 H 24 06/26/20 10:00 114 H 24 06/26/20 09:50 115 H 06/26/20 09:45 116 H 06/26/20 09:35 116 H 24 89/46 06/26/20 09:30 116 H 24 93/58 06/26/20 09:25 115 H 24 91/36 06/26/20 09:20 116 H 25 H 89/40 06/26/20 09:15 113 H 23 88/38 06/26/20 09:10 118 H 24 81/37 06/26/20 09:05 105 H 16 66/46 06/26/20 09:00 109 H 23 63/35 06/26/20 08:55 112 H 14 55/34 06/26/20 08:50 111 H 27 H 62/37 06/26/20 08:45 108 H 21 06/26/20 08:40 108 H 29 H 74/40 06/26/20 08:25 106 H 38 H 79/43 06/26/20 08:20 107 H 40 H 85/41 06/26/20 08:05 105 H 36 H 83/52 06/26/20 08:00 104 H 24 85/50 04/23/21 07:55 107 H 24 85/50 06/26/20 07:50 27 H 71/50 06/26/20 05:43 86/54 06/26/20 04:55 84/56 06/26/20 04:41 97.4 F L 106 H 20 80/56 06/25/20 22:14 110 H 06/25/20 22:02 110 H 06/25/20 21:30 97.9 F 106 H 18 92/55 06/25/20 20:15 106 H 18 06/25/20 16:39 109 H 20 99/68 06/25/20 13:24 96.8 F L 102 H 13 90/55 Pulse Ox 06/26/20 12:40 95 06/26/20 12:00 93 L 06/26/20 11:30 94 L 06/26/20 11:00 96 06/26/20 10:30 97 06/26/20 10:00 100 06/26/20 09:50 99 06/26/20 09:45 98 06/26/20 09:35 99 06/26/20 09:30 100 06/26/20 09:25 99 06/26/20 09:20 100 06/26/20 09:15 100 06/26/20 09:10 100 06/26/20 09:05 99 06/26/20 09:00 99 06/26/20 08:55 97 06/26/20 08:50 98 06/26/20 08:45 98 06/26/20 08:40 98 06/26/20 08:25 100 06/26/20 08:20 100 06/26/20 08:05 98 06/26/20 08:00 98 06/26/20 07:55 94 L 06/26/20 07:50 06/26/20 05:43 06/26/20 04:55 06/26/20 04:41 95 06/25/20 22:14 06/25/20 22:02 06/25/20 21:30 96 06/25/20 20:15 06/25/20 16:39 06/25/20 13:24 95 Intake and Output 06/25/20 06/26/20 06/26/20 22:59 06:59 14:59 Intake Total 600 3590.275 Output Total 10 210 35 Balance -10 390 3555.275 Intake: IV 375 Dextrose 5% in Water 1, 375 000 ml @ 125 mls/hr IV . Q9H12M NETO with Sodium Bicarb (1 Meq/ml) 150 ml Rx#:[id number] Intake, IV Titration 600 3215.275 Amount Calcium Gluconate 2 gm In 100 Sodium Chloride 0.9% 100 ml @ 100 mls/hr IVPB ONCE ONE Rx#:[id number] Norepinephrine 32 mg In 15.275 Sodium Chloride 0.9% 218 ml @ 0.05 MCG/KG/MIN 1. 219 mls/hr IV .Q24H [facility] Rx#:[id number] Piperacillin-Tazobactam 3 100 .375 gm In Sodium Chloride 0.9% 100 ml @ 25 mls/hr IVPB Q8HR [facility] Rx# :[id number] Sodium Chloride 0.9% 1, 600 000 ml @ 50 mls/hr IV . Q20H [facility] Rx#:[id number] Sodium Chloride 0.9% 100 1000 ml @ 0 mls/hr IV .STK-MED ONE with ceFAZolin 2,000 mg Rx#:[id number] Sodium Chloride 0.9% 2, 2000 000 ml @ 999 mls/hr IV . Q2H1M ONE Rx#:[id number] Output: Drainage 10 10 Anterior Abdomen 10 10 Urine 200 35 Other: Voiding Method Indwelling Catheter Indwelling Catheter ABP, PAP, CO, CI - Last 8 Hours Arterial Blood Pressure 89/46 Arterial Blood Pressure 93/47 Arterial Blood Pressure 99/46 Arterial Blood Pressure 108/46 Arterial Blood Pressure 109/50 Arterial Blood Pressure 107/51 GENERAL EXAM: Sedated, intubated, 64-year-old white female, on assist-control mode of ventilation, with FiO2 100% and PEEP of 5, patient is in septic shock, and requiring high dose of norepinephrine and vasopressin, being actively fluid resuscitated comfortable in no apparent distress. HEAD: Normocephalic/atraumatic. EYES: Normal reaction of pupils, equal size. Conjunctiva pink, sclera white. NOSE: Clear with pink turbinates. THROAT: No erythema or exudates. NECK: No masses, no JVD, no thyroid enlargement, no adenopathy. CHEST: No chest wall deformity. Symmetrical expansion. LUNGS: Equal air entry with no crackles, wheeze, rhonchi or dullness. CVS: Regular rate and rhythm, normal S1 and S2, no gallops, no murmurs, no rubs ABDOMEN: Soft, nontender. No hepatosplenomegaly, normal bowel sounds, no guarding or rigidity. Midabdominal incision with gonzalez, and it was appreciated EXTREMITIES: No clubbing, no edema, no cyanosis, 2+ pulses and upper and lower extremities. MUSCULOSKELETAL: Muscle strength and tone normal. SPINE: No scoliosis or deformity SKIN: No rashes CENTRAL NERVOUS SYSTEM: Intubated, and sedated No focal deficits, tone is normal in all 4 extremities. Results - Laboratory Findings CBC and BMP: 06/26/20 07:11 06/26/20 12:05 ABG ABG pH 7.04 (7.35-7.45) L* 06/26/20 09:59 ABG pCO2 36 mmHg (35-45) 06/26/20 09:59 ABG pO2 >400 mmHg (83-108) H 06/26/20 09:59 ABG O2 Saturation 99.7 % (94-97) H 06/26/20 09:59 PT/INR, D-dimer PT 15.7 sec (9.0-12.0) H 06/25/20 05:00 INR 1.6 (<1.2) H 06/25/20 05:00 Abnormal lab findings: Abnormal Labs 06/15/20 06/15/20 06/15/20 14:40 14:48 14:48 WBC RBC Hgb Hct MCHC RDW Plt Count 79 L D Neutrophils # 8.5 H Neutrophils # (Manual) Lymphocytes # 0.7 L Lymphocytes # (Manual) Monocytes # Metamyelocytes # (Man) Myelocytes # (Manual) Nucleated RBCs PT INR APTT ABG pH ABG pO2 ABG HCO3 ABG Total CO2 ABG O2 Saturation Sodium 133 L Potassium Chloride 95 L Carbon Dioxide Anion Gap BUN 19 H Creatinine Est GFR (CKD-EPI)AfAm Est GFR (CKD-EPI)NonAf BUN/Creatinine Ratio Glucose 149 H POC Glucose (mg/dL) Plasma Lactic Acid Peter Calcium Total Bilirubin 1.6 H AST Alkaline Phosphatase Ammonia Total Protein Albumin Albumin/Globulin Ratio Urine Appearance Urine Protein Trace H Urine Blood Urine Bilirubin Ur Leukocyte Esterase Small H Urine RBC Urine WBC 19 H Urine WBC Clumps Calcium Oxalate Crystal Few H Amorphous Sediment Urine Bacteria Hyaline Casts 113 H Urine Mucus Many H 06/16/20 06/16/20 06/17/20 05:43 05:45 09:08 WBC RBC Hgb Hct MCHC RDW Plt Count 68 L Neutrophils # Neutrophils # (Manual) Lymphocytes # 0.4 L Lymphocytes # (Manual) 0.29 L Monocytes # Metamyelocytes # (Man) Myelocytes # (Manual) Nucleated RBCs PT INR APTT ABG pH ABG pO2 ABG HCO3 ABG Total CO2 ABG O2 Saturation Sodium 133 L 134 L Potassium Chloride Carbon Dioxide Anion Gap BUN 27 H 34 H Creatinine Est GFR (CKD-EPI)AfAm Est GFR (CKD-EPI)NonAf BUN/Creatinine Ratio Glucose 165 H 119 H POC Glucose (mg/dL) Plasma Lactic Acid Peter Calcium Total Bilirubin AST Alkaline Phosphatase Ammonia Total Protein Albumin Albumin/Globulin Ratio Urine Appearance Urine Protein Urine Blood Urine Bilirubin Ur Leukocyte Esterase Urine RBC Urine WBC Urine WBC Clumps Calcium Oxalate Crystal Amorphous Sediment Urine Bacteria Hyaline Casts Urine Mucus 06/17/20 06/18/20 06/18/20 09:08 10:52 10:52 WBC RBC 3.41 L 3.75 L Hgb 10.3 L 10.6 L Hct 29.4 L 33.2 L MCHC RDW 15.7 H 16.1 H Plt Count 94 L Neutrophils # Neutrophils # (Manual) Lymphocytes # 0.4 L 0.3 L Lymphocytes # (Manual) Monocytes # Metamyelocytes # (Man) Myelocytes # (Manual) Nucleated RBCs PT INR APTT ABG pH ABG pO2 ABG HCO3 ABG Total CO2 ABG O2 Saturation Sodium 135 L Potassium Chloride 108 H Carbon Dioxide Anion Gap BUN 33 H Creatinine Est GFR (CKD-EPI)AfAm Est GFR (CKD-EPI)NonAf BUN/Creatinine Ratio Glucose 114 H POC Glucose (mg/dL) Plasma Lactic Acid Peter Calcium Total Bilirubin AST Alkaline Phosphatase Ammonia Total Protein Albumin Albumin/Globulin Ratio Urine Appearance Urine Protein Urine Blood Urine Bilirubin Ur Leukocyte Esterase Urine RBC Urine WBC Urine WBC Clumps Calcium Oxalate Crystal Amorphous Sediment Urine Bacteria Hyaline Casts Urine Mucus 06/19/20 06/19/20 06/20/20 04:50 04:50 04:39 WBC RBC 3.74 L 3.74 L Hgb 10.4 L 11.2 L Hct 33.4 L 32.6 L MCHC RDW 16.1 H 15.9 H Plt Count 121 L 111 L Neutrophils # Neutrophils # (Manual) Lymphocytes # 0.4 L 0.3 L Lymphocytes # (Manual) Monocytes # Metamyelocytes # (Man) Myelocytes # (Manual) Nucleated RBCs PT INR APTT ABG pH ABG pO2 ABG HCO3 ABG Total CO2 ABG O2 Saturation Sodium Potassium Chloride Carbon Dioxide Anion Gap BUN 29 H Creatinine Est GFR (CKD-EPI)AfAm Est GFR (CKD-EPI)NonAf BUN/Creatinine Ratio Glucose POC Glucose (mg/dL) Plasma Lactic Acid Peter Calcium Total Bilirubin AST Alkaline Phosphatase Ammonia Total Protein Albumin Albumin/Globulin Ratio Urine Appearance Urine Protein Urine Blood Urine Bilirubin Ur Leukocyte Esterase Urine RBC Urine WBC Urine WBC Clumps Calcium Oxalate Crystal Amorphous Sediment Urine Bacteria Hyaline Casts Urine Mucus 06/20/20 06/22/20 06/22/20 04:39 12:00 12:48 WBC 13.5 H 14.1 H RBC Hgb Hct 33.4 L MCHC RDW 16.4 H 16.4 H Plt Count 126 L 134 L Neutrophils # 12.5 H Neutrophils # (Manual) 12.60 H Lymphocytes # 0.3 L Lymphocytes # (Manual) 0.28 L Monocytes # Metamyelocytes # (Man) 0.42 H Myelocytes # (Manual) 0.14 H Nucleated RBCs PT INR APTT ABG pH ABG pO2 ABG HCO3 ABG Total CO2 ABG O2 Saturation Sodium Potassium Chloride Carbon Dioxide Anion Gap BUN 30.0 H Creatinine Est GFR (CKD-EPI)AfAm Est GFR (CKD-EPI)NonAf BUN/Creatinine Ratio 42.86 H Glucose POC Glucose (mg/dL) Plasma Lactic Acid Peter Calcium Total Bilirubin 3.7 H AST 36 H Alkaline Phosphatase Ammonia Total Protein 4.5 L Albumin 2.80 L Albumin/Globulin Ratio Urine Appearance Urine Protein Urine Blood Urine Bilirubin Ur Leukocyte Esterase Urine RBC Urine WBC Urine WBC Clumps Calcium Oxalate Crystal Amorphous Sediment Urine Bacteria Hyaline Casts Urine Mucus 06/22/20 06/22/20 06/23/20 12:48 12:48 05:36 WBC 14.2 H RBC Hgb 11.1 L Hct 33.4 L MCHC RDW 16.5 H Plt Count 145 L Neutrophils # 12.5 H Neutrophils # (Manual) Lymphocytes # 0.6 L Lymphocytes # (Manual) Monocytes # Metamyelocytes # (Man) Myelocytes # (Manual) Nucleated RBCs PT 16.4 H INR 1.6 H APTT ABG pH ABG pO2 ABG HCO3 ABG Total CO2 ABG O2 Saturation Sodium 134 L Potassium Chloride Carbon Dioxide 21 L Anion Gap BUN 27 H Creatinine Est GFR (CKD-EPI)AfAm Est GFR (CKD-EPI)NonAf BUN/Creatinine Ratio Glucose 109 H POC Glucose (mg/dL) Plasma Lactic Acid Peter Calcium Total Bilirubin 3.8 H AST Alkaline Phosphatase Ammonia Total Protein 4.9 L Albumin 2.3 L Albumin/Globulin Ratio Urine Appearance Urine Protein Urine Blood Urine Bilirubin Ur Leukocyte Esterase Urine RBC Urine WBC Urine WBC Clumps Calcium Oxalate Crystal Amorphous Sediment Urine Bacteria Hyaline Casts Urine Mucus 06/23/20 06/23/20 06/23/20 05:36 14:45 17:44 WBC RBC Hgb Hct MCHC RDW Plt Count Neutrophils # Neutrophils # (Manual) Lymphocytes # Lymphocytes # (Manual) Monocytes # Metamyelocytes # (Man) Myelocytes # (Manual) Nucleated RBCs PT INR APTT ABG pH ABG pO2 ABG HCO3 ABG Total CO2 ABG O2 Saturation Sodium Potassium Chloride Carbon Dioxide 15.4 L Anion Gap 18.60 H BUN 39.0 H Creatinine Est GFR (CKD-EPI)AfAm 55.3 L Est GFR (CKD-EPI)NonAf 47.7 L BUN/Creatinine Ratio 32.50 H Glucose 175 H POC Glucose (mg/dL) Plasma Lactic Acid Peter Calcium 8.4 L Total Bilirubin 4.7 H AST 59 H Alkaline Phosphatase 237 H Ammonia 55 H Total Protein 5.3 L Albumin 2.90 L Albumin/Globulin Ratio 1.21 L Urine Appearance Cloudy H Urine Protein Urine Blood Moderate H Urine Bilirubin 1+ H Ur Leukocyte Esterase Large H Urine RBC 29 H Urine WBC 90 H Urine WBC Clumps Few H Calcium Oxalate Crystal Amorphous Sediment Rare H Urine Bacteria Rare H Hyaline Casts 12 H Urine Mucus Rare H 06/24/20 06/24/20 06/24/20 06:16 06:16 06:21 WBC 20.3 H RBC Hgb Hct MCHC RDW 16.8 H Plt Count Neutrophils # 18.7 H Neutrophils # (Manual) Lymphocytes # 0.4 L Lymphocytes # (Manual) Monocytes # Metamyelocytes # (Man) Myelocytes # (Manual) Nucleated RBCs PT 17.2 H INR 1.7 H APTT 21.0 L ABG pH ABG pO2 ABG HCO3 ABG Total CO2 ABG O2 Saturation Sodium 134 L Potassium Chloride Carbon Dioxide 17 L Anion Gap BUN 43 H Creatinine 1.08 H Est GFR (CKD-EPI)AfAm Est GFR (CKD-EPI)NonAf BUN/Creatinine Ratio Glucose 128 H POC Glucose (mg/dL) Plasma Lactic Acid Peter Calcium Total Bilirubin 4.0 H AST 71 H Alkaline Phosphatase 214 H Ammonia Total Protein 5.3 L Albumin 2.2 L Albumin/Globulin Ratio Urine Appearance Urine Protein Urine Blood Urine Bilirubin Ur Leukocyte Esterase Urine RBC Urine WBC Urine WBC Clumps Calcium Oxalate Crystal Amorphous Sediment Urine Bacteria Hyaline Casts Urine Mucus 06/25/20 06/25/20 06/25/20 05:00 05:00 05:00 WBC 17.2 H RBC Hgb Hct MCHC RDW 17.3 H Plt Count Neutrophils # 14.8 H Neutrophils # (Manual) Lymphocytes # 0.6 L Lymphocytes # (Manual) Monocytes # 1.3 H Metamyelocytes # (Man) Myelocytes # (Manual) Nucleated RBCs PT 15.7 H INR 1.6 H APTT ABG pH ABG pO2 ABG HCO3 ABG Total CO2 ABG O2 Saturation Sodium 127 L Potassium Chloride 96 L Carbon Dioxide 21 L Anion Gap BUN 54 H Creatinine 1.40 H Est GFR (CKD-EPI)AfAm Est GFR (CKD-EPI)NonAf BUN/Creatinine Ratio Glucose 114 H POC Glucose (mg/dL) Plasma Lactic Acid Peter Calcium 8.3 L Total Bilirubin 3.0 H AST 41 H Alkaline Phosphatase 210 H Ammonia Total Protein 4.8 L Albumin 2.0 L Albumin/Globulin Ratio Urine Appearance Urine Protein Urine Blood Urine Bilirubin Ur Leukocyte Esterase Urine RBC Urine WBC Urine WBC Clumps Calcium Oxalate Crystal Amorphous Sediment Urine Bacteria Hyaline Casts Urine Mucus 06/26/20 06/26/20 06/26/20 07:04 07:11 07:11 WBC 35.0 H RBC Hgb Hct MCHC 28.8 L RDW 17.0 H Plt Count Neutrophils # Neutrophils # (Manual) 33.20 H Lymphocytes # Lymphocytes # (Manual) 0.70 L Monocytes # Metamyelocytes # (Man) 0.35 H Myelocytes # (Manual) Nucleated RBCs 1 H PT INR APTT ABG pH ABG pO2 ABG HCO3 ABG Total CO2 ABG O2 Saturation Sodium 131 L Potassium 6.4 H* Chloride Carbon Dioxide <5 L* Anion Gap BUN 57 H Creatinine Est GFR (CKD-EPI)AfAm Est GFR (CKD-EPI)NonAf BUN/Creatinine Ratio Glucose 129 H POC Glucose (mg/dL) 32 L Plasma Lactic Acid Peter Calcium 7.8 L Total Bilirubin 3.7 H AST 562 H Alkaline Phosphatase Ammonia Total Protein 4.0 L Albumin 1.6 L Albumin/Globulin Ratio Urine Appearance Urine Protein Urine Blood Urine Bilirubin Ur Leukocyte Esterase Urine RBC Urine WBC Urine WBC Clumps Calcium Oxalate Crystal Amorphous Sediment Urine Bacteria Hyaline Casts Urine Mucus 06/26/20 06/26/20 06/26/20 07:11 07:15 07:55 WBC RBC Hgb Hct MCHC RDW Plt Count Neutrophils # Neutrophils # (Manual) Lymphocytes # Lymphocytes # (Manual) Monocytes # Metamyelocytes # (Man) Myelocytes # (Manual) Nucleated RBCs PT INR APTT ABG pH ABG pO2 ABG HCO3 ABG Total CO2 ABG O2 Saturation Sodium Potassium Chloride Carbon Dioxide Anion Gap BUN Creatinine Est GFR (CKD-EPI)AfAm Est GFR (CKD-EPI)NonAf BUN/Creatinine Ratio Glucose POC Glucose (mg/dL) 185 H 127 H Plasma Lactic Acid Peter 15.8 H* Calcium Total Bilirubin AST Alkaline Phosphatase Ammonia Total Protein Albumin Albumin/Globulin Ratio Urine Appearance Urine Protein Urine Blood Urine Bilirubin Ur Leukocyte Esterase Urine RBC Urine WBC Urine WBC Clumps Calcium Oxalate Crystal Amorphous Sediment Urine Bacteria Hyaline Casts Urine Mucus 06/26/20 06/26/20 06/26/20 09:59 12:02 12:05 WBC RBC Hgb Hct MCHC RDW Plt Count Neutrophils # Neutrophils # (Manual) Lymphocytes # Lymphocytes # (Manual) Monocytes # Metamyelocytes # (Man) Myelocytes # (Manual) Nucleated RBCs PT INR APTT ABG pH 7.04 L* ABG pO2 >400 H ABG HCO3 10 L* ABG Total CO2 11 L ABG O2 Saturation 99.7 H Sodium Potassium Chloride Carbon Dioxide Anion Gap BUN Creatinine Est GFR (CKD-EPI)AfAm Est GFR (CKD-EPI)NonAf BUN/Creatinine Ratio Glucose POC Glucose (mg/dL) 205 H Plasma Lactic Acid Peter 11.9 H* Calcium Total Bilirubin AST Alkaline Phosphatase Ammonia Total Protein Albumin Albumin/Globulin Ratio Urine Appearance Urine Protein Urine Blood Urine Bilirubin Ur Leukocyte Esterase Urine RBC Urine WBC Urine WBC Clumps Calcium Oxalate Crystal Amorphous Sediment Urine Bacteria Hyaline Casts Urine Mucus - Diagnostic Findings Chest x-ray: report reviewed, image reviewed Additional studies: CT of the abdomen and pelvis reviewed, chest x-ray reviewed Assessment and Plan Plan: Assessment: #1. Acute septic shock likely related to intra-abdominal source and infection at the abdominal incision site, with ascites fluid showing anaerobic gram- positive bacilli, and alphahemolytic streptococcus final culture is pending #2. Acute hypoxic respiratory failure related to acute septic shock requiring intubation and placement on mechanical ventilation #3. Severe metabolic acidosis related to septic shock, and acute kidney injury #4. Shock Liver #5. Hyperkalemia related to acute metabolic acidosis and acute kidney injury, treated with 50% dextrose, bicarbonate, calcium gluconate and IV fluids #6. Large volume ascites, and patient is status post ultrasound-guided paracentesis on 06/23/2020 with removal of 4.3 L of ascitic fluid #7. Ventral lower abdomen postsurgical wound dehiscence as suggested on the CT of the abdomen and pelvis #8. Strangulated ventral hernia with small bowel obstruction and small bowel ischemia status post exploratory laparotomy, on 06/15/2020 #9. History of liver cirrhosis and ascites requiring paracentesis every 1-2 weeks #10. Urinary tract infection urine culture showed no growth #11. History of EtOH and liver cirrhosis, and portal hypertension #12. Previous history of myocardial infarction #13. History of CVA/TIA #14. Former smoker #15. History of anxiety and depression Plan: Patient was fluid resuscitated and started on vasopressor support in the form of norepinephrine and vasopressin Continue current antibiotics Patient was intubated and placed on mechanical ventilator, and adjustments have been made, patient was placed on sedation Continue D5 W with 3 A of bicarbonate and 125 ML per hour Received 2 A of sodium bicarbonate And 2 A of calcium gluconate were given Hypertension was treated with D50 and continues to have insulin Patient received a total of 3 L of fluid boluses repeat lactic acid, blood cultures have been sent Patient's family was updated the patient's condition, however remains critical Case discussed with surgery, and the surgeon discussed prognosis with the family who is thinking about making the patient comfort care sometime today In the meantime continue supportive the treating the patient, and overall prognosis is poor and guarded I performed a history & physical examination of the patient and discussed their management with my nurse practitioner, Laura Moss. I reviewed the nurse florencio lopez's note and agree with the documented findings and plan of care. Lung sounds are positive for diffuse wheezes throughout the lung taylor. The findings and the impression was discussed with the patient. I attest to the documentation by the nurse practitioner. Time with Patient: Greater than 30
[2020-06-26] MEDS ORDERED: LORazepam 2 MG/ML INJ IV PRN (14:55)
[2020-06-26] MEDS ORDERED: SCOPOLAMINE 1.5MG/72HR PATCH TRANSDERM SCH (15:00)
[2020-06-26] MEDS ORDERED: MORPHINE SULFATE (100 MG/2 ML) 100 MG in SODIUM CHLORIDE 0.9% 100 ML IV SCH (15:00)
[2020-06-26] MEDS: MORPHINE SULFATE 2 MG/ML SYRINGE IV PRN ×2 (15:15→16:42)
--- NOTE | 2020-06-26 15:39 | PN ---
PROGRESS NOTE DATE OF SERVICE: 06/26/2020 This 64-year-old woman who was admitted after repair of incarcerated ventral hernia is being closely monitored. The patient had features of sepsis. The patient was transferred to ICU. Patient is being closely monitored at this time. The patient also had subcutaneous emphysema and a large volume of ascites was also noted. The patient is severely emaciated and has features of severe malnutrition. The patient has also a history of significant alcoholic cirrhosis. Because of the lack of improvement and worsening of the situation and multiple complex medical issues, the family and I had a detailed discussion and they are opting for comfort measures at this time. Past medical reviewed. Review of systems could not be taken. Overnight the patient was mechanically ventilated and transferred to ICU. CURRENT MEDICATIONS: Reviewed. They include [place], DuoNeb, vitamin B12, dextrose, heparin, antibiotics, Flagyl. Doses are reviewed. PHYSICAL EXAMINATION: Patient is mechanically ventilated and sedated. Pulse is 129, blood pressure 91/53, respiration 24, temperature normal, pulse ox 92% on 40%. HEENT: Conjunctivae normal. NECK: No jugular venous distention. CARDIOVASCULAR SYSTEM: S1, S2 muffled. RESPIRATORY SYSTEM: Breath sounds diminished at the bases. A few rhonchi. ABDOMEN: Soft, non-tender. NERVOUS SYSTEM: Patient is mechanically ventilated and sedated. LABS: ABGs noted. pH is 7.04, WBC 35. Other labs are noted. ASSESSMENT: 1. Status post incarcerated ventral hernia associated with small bowel obstruction. 2. Cirrhosis of the liver with ascites. 3. Acute hypoxic respiratory failure, multifactorial, secondary to sepsis. 4. Wound infection with alpha hemolytic streptococci. 5. Ascites secondary to cirrhosis of the liver, status post large-volume paracentesis, 4.3 cm. 6. Acute renal failure with acute tubular necrosis and prerenal renal factors and change in mental status, acute metabolic encephalopathy. 7. Increased white count, possibly acute urinary tract infection with sepsis. 8. History of alcoholic cirrhosis. 9. Severe protein-calorie malnutrition. 10.Gait dysfunction. 11.Secondary portal hypertension. 12.Hypertension history. 13.Scoliosis. 14.Hepatosplenomegaly from cirrhosis of the liver. 15.Thrombocytopenia from cirrhosis of the liver. 16.Right lower lobe 4 cm lesion, awaiting MRI. 17.Hyponatremia. 18.Hypoalbuminemia. 19.Mild coagulopathy secondary to cirrhosis of the liver. 20.Increased white count. 21.Anemia, normocytic. 22.FULL CODE. RECOMMENDATIONS AND DISCUSSION: I recommend to continue current medications, continue with symptomatic treatment. I had a detailed discussion with the family, and at this time the family is waiting for the daughter to come and make a decision about comfort measures. Overall prognosis is extremely guarded. The patient has taken a turn for the worse and developed acute hypoxic respiratory failure at this time and white count is elevated, despite aggressive intensive treatment involving multiple consultants. See orders for further details. Further recommendations to follow. Discussed with the family at length. MMLAINEL / IJN: [id number] /
--- NOTE | 2020-06-26 15:56 | P.PN ---
Subjective Progress Note Date: 06/26/20 CHIEF COMPLAINT: Abdominal pain HISTORY OF PRESENT ILLNESS: Patient's condition declined over the night. Rapid response team was called due to hypotension and increased shortness of breath with hypoxia. She required a transfer to the ICU. Patient is intubated and on mechanical ventilation. He is on sodium bicarb drip. She is on pressor support with norepinephrine and vasopressin. Patient had computed tomography scan of the abdomen that shows ventral lower abdomen hernia tomography postsurgical changes with a dehiscent-appearing subcutaneous wound with surgical gonzalez, subcutaneous emphysema and surgical drain. Subcutaneous emphysema is down to the level of the abdominal wall. There is no gas seen transversing the peritoneal layer to suggest dehiscence into the abdominal cavity. There is moderate pneumoperitoneum which is expected postoperative finding. Oral contrast throughout the small bowel with no evidence of abdominal oral contrast extravasation to suggest leak. Decreased dilation of the small bowel loops versus 06/15/2020. Large volume ascites, cholelithiasis and cirrhotic liver noted. Afebrile tachycardic and hypotensive. WBC 35 hemoglobin 11.8 platelets 199 sodium 131 CO2 less than 5 lactic 11.9 Patient seen and examined with Dr. Paredes PHYSICAL EXAM: VITAL SIGNS: Reviewed. GENERAL: Well-developed in no acute distress. HEENT: No sclera icterus. Extraocular movements grossly intact. Moist buccal mucosa. Head is atraumatic, normocephalic. ABDOMEN: Soft. Distended. Abdominal incision with drainage. The abdominal incision opening has increased in size. NEUROLOGIC: Alert and oriented. But appears to be more lethargic Cranial nerves II through XII grossly intact. ASSESSMENT: 1. Sepsis likely related to intra-abdominal source and infection at the abdominal incision site. 2. Acute hypoxic respiratory failure due to septic shock requiring intubation and mechanical ventilation 3. strangulated ventral hernia, small bowel obstruction and small bowel ischemia status post exploratory laparotomy, small bowel resection and repair of incarcerated ventral hernia. Postop day #10 4. Infection at abdominal incision site 5. Liver lesion. Followed by GI and oncology service. 6. History of liver cirrhosis and ascites requiring paracentesis every 1-2 weeks. Patient status post paracentesis during this admission with 4.3 L removed PLAN: -Continue ICU management -Continue supportive care -Dr. Paredes did talk with patient's . Patient's overall prognosis is poor. And awaiting family's decision regarding possible comfort care -She had prophylaxis Protonix and DVT prophylaxis Lovenox Physician Corn Grower note has been reviewed by physician. Signing provider agrees with the documented findings, assessment, and plan of care. Objective - Vital Signs Vital signs: Vital Signs Temp 98.1 F 06/26/20 12:00 Pulse 121 H 06/26/20 15:00 Resp 23 06/26/20 15:00 BP 91/53 06/26/20 12:00 Pulse Ox 96 06/26/20 15:00 Intake & Output 06/25/20 06/26/20 06/26/20 18:59 06:59 18:59 Intake Total 600 4020.092 Output Total 40 210 55 Balance -40 390 3965.092 Weight 52 kg Intake: IV 500 Dextrose 5% in Water 1, 500 000 ml @ 125 mls/hr IV . Q9H12M NETO with Sodium Bicarb (1 Meq/ml) 150 ml Rx#:[id number] Intake, IV Titration 600 3520.092 Amount Calcium Gluconate 2 gm In 100 Sodium Chloride 0.9% 100 ml @ 100 mls/hr IVPB ONCE ONE Rx#:[id number] Norepinephrine 32 mg In 52.244 Sodium Chloride 0.9% 218 ml @ 0.05 MCG/KG/MIN 1. 219 mls/hr IV .Q24H [facility] Rx#:[id number] Piperacillin-Tazobactam 3 100 .375 gm In Sodium Chloride 0.9% 100 ml @ 25 mls/hr IVPB Q8HR [facility] Rx# :[id number] Sodium Chloride 0.9% 1, 600 000 ml @ 50 mls/hr IV . Q20H [facility] Rx#:[id number] Sodium Chloride 0.9% 1, 225 000 ml @ 75 mls/hr IV . [id number] [facility] Rx#:[id number] Sodium Chloride 0.9% 100 1000 ml @ 0 mls/hr IV .STK-MED ONE with ceFAZolin 2,000 mg Rx#:[id number] Sodium Chloride 0.9% 2, 2000 000 ml @ 999 mls/hr IV . Q2H1M ONE Rx#:[id number] propofoL 1,000 mg In 42.848 Empty Bag 1 bag @ Titrate IV .Q0M [facility] Rx#: [id number] Output: Drainage 40 10 Anterior Abdomen 40 10 Urine 200 55 Other: Voiding Method Indwelling Catheter Indwelling Catheter ABP, PAP, CO, CI - Last Documented Arterial Blood Pressure 85/64 - Labs CBC & Chem 7: 06/26/20 07:11 06/26/20 12:05 Labs: Abnormal Lab Results - Last 24 Hours (Table) 06/26/20 06/26/20 06/26/20 Range/Units 07:04 07:11 07:11 WBC 35.0 H (3.8-10.6) k/uL MCHC 28.8 L (31.0-37.0) g/dL RDW 17.0 H (11.5-15.5) % Neutrophils # (Manual) 33.20 H (1.3-7.7) k/uL Lymphocytes # (Manual) 0.70 L (1.0-4.8) k/uL Metamyelocytes # (Man) 0.35 H (0) k/uL Nucleated RBCs 1 H (0-0) /100 WBC ABG pH (7.35-7.45) ABG pO2 (83-108) mmHg ABG HCO3 (21-25) mmol/L ABG Total CO2 (19-24) mmol/L ABG O2 Saturation (94-97) % Sodium 131 L (137-145) mmol/L Potassium 6.4 H* (3.5-5.1) mmol/L Carbon Dioxide <5 L* (22-30) mmol/L BUN 57 H (7-17) mg/dL Glucose 129 H (74-99) mg/dL POC Glucose (mg/dL) 32 L (75-99) mg/dL Plasma Lactic Acid Peter (0.7-2.0) mmol/L Calcium 7.8 L (8.4-10.2) mg/dL Total Bilirubin 3.7 H (0.2-1.3) mg/dL AST 562 H (14-36) U/L Total Protein 4.0 L (6.3-8.2) g/dL Albumin 1.6 L (3.5-5.0) g/dL 06/26/20 06/26/20 06/26/20 Range/Units 07:11 07:15 07:55 WBC (3.8-10.6) k/uL MCHC (31.0-37.0) g/dL RDW (11.5-15.5) % Neutrophils # (Manual) (1.3-7.7) k/uL Lymphocytes # (Manual) (1.0-4.8) k/uL Metamyelocytes # (Man) (0) k/uL Nucleated RBCs (0-0) /100 WBC ABG pH (7.35-7.45) ABG pO2 (83-108) mmHg ABG HCO3 (21-25) mmol/L ABG Total CO2 (19-24) mmol/L ABG O2 Saturation (94-97) % Sodium (137-145) mmol/L Potassium (3.5-5.1) mmol/L Carbon Dioxide (22-30) mmol/L BUN (7-17) mg/dL Glucose (74-99) mg/dL POC Glucose (mg/dL) 185 H 127 H (75-99) mg/dL Plasma Lactic Acid Peter 15.8 H* (0.7-2.0) mmol/L Calcium (8.4-10.2) mg/dL Total Bilirubin (0.2-1.3) mg/dL AST (14-36) U/L Total Protein (6.3-8.2) g/dL Albumin (3.5-5.0) g/dL 06/26/20 06/26/20 06/26/20 Range/Units 09:59 12:02 12:05 WBC (3.8-10.6) k/uL MCHC (31.0-37.0) g/dL RDW (11.5-15.5) % Neutrophils # (Manual) (1.3-7.7) k/uL Lymphocytes # (Manual) (1.0-4.8) k/uL Metamyelocytes # (Man) (0) k/uL Nucleated RBCs (0-0) /100 WBC ABG pH 7.04 L* (7.35-7.45) ABG pO2 >400 H (83-108) mmHg ABG HCO3 10 L* (21-25) mmol/L ABG Total CO2 11 L (19-24) mmol/L ABG O2 Saturation 99.7 H (94-97) % Sodium (137-145) mmol/L Potassium (3.5-5.1) mmol/L Carbon Dioxide (22-30) mmol/L BUN (7-17) mg/dL Glucose (74-99) mg/dL POC Glucose (mg/dL) 205 H (75-99) mg/dL Plasma Lactic Acid Peter 11.9 H* (0.7-2.0) mmol/L Calcium (8.4-10.2) mg/dL Total Bilirubin (0.2-1.3) mg/dL AST (14-36) U/L Total Protein (6.3-8.2) g/dL Albumin (3.5-5.0) g/dL Microbiology - Last 24 Hours (Table) 06/22/20 09:30 Anaerobic Culture - Preliminary Abdomen Clostridium ramosum 06/24/20 14:54 Urine Culture - Final Urine,Catheterized 06/23/20 14:45 Blood Culture - Preliminary Blood No Growth after 48 hours
[2020-06-26 17:35] VITALS: PULSE 0; RESP 0
--- NOTE | 2020-06-30 17:15 | CDI ---
Documentation Clarification Form Date: 06/30/2020 04:43:59 PM From: Linda Zheng RN, CCDS Admit Date: 06/15/2020 06:20:00 PM Patient Name: Oralia Hart Visit Number: [id number] Discharge Date: 06/26/2020 06:20:00 PM ATTENTION: The Clinical Documentation Specialists (CDI) and [facility] Coding Staff appreciate your assistance in clarifying documentation. Please respond to the clarification below the line at the bottom and electronically sign. The CDI & [facility] Coding staff will review the response and follow-up if needed. Please note: Queries are made part of the Legal Health Record. If you have any questions, please contact the author of this message via ITS. Dr. Michael Paredes Subcutaneous emphysema is down to the level of the abdominal wall is documented in the 06/25 CT AP and patient had an exploratory lap with a small bowel resection and repair of incarcerated ventral hernia on 06/15 and also an Ultrasound guided Paracentesis on 06/23. Additional clarification is requested regarding the relationship, if any, that exists between the diagnosis and the procedure and the clinical significance 06/15 H&P Patients Admitting Diagnosis: Incarcerated umbilical hernia with evidence of small bowel charge Post-Operative Diagnosis: Strangulated ventral hernia, Small obstruction, Small bowel ischemia 06/15 Original Procedure performed: Exploratory laparotomy, Small bowel resection, Repair of incarcerated ventral hernia 06/23 US Guided Paracentesis for palliation of ascites. 4.3L serous fluid removed History/Risk Factors: Alcoholic liver cirrhosis, MS, scoliosis, CVA, macrocytic anemia, varicose veins Clinical Indicators: 06/25 CT AP: "Ventral lower abdomen herniorrhaphy postsurgical changes with dehiscent appearing subcutaneous wound with surgical gonzalez, subcutaneous emphysema, and surgical drain. Subcutaneous emphysema is down to the level of the abdominal wall. There is no gas seen traversing the peritoneal layer to suggest dehiscence into the abdominal cavity. 2. There is moderate pneumoperitoneum, which may be an expected postoperative." finding. Treatment: Monitoring 06/26 Patient was intubated and placed on MV What relationship, if any, exists between the diagnosis of subcutaneous emphysema of the abdominal wall and pneumoperitoneum and the procedure? [ ] Subcutaneous emphysema is down to the level of the abdominal wall is a complication of surgical procedure [ x ] Subcutaneous emphysema is down to the level of the abdominal wall is a complication of the paracentesis [ ] Subcutaneous emphysema is down to the level of the abdominal wall is an expected outcome of the surgical procedure [ ] Subcutaneous emphysema is down to the level of the abdominal wall is an expected outcome of the paracentesis [ ] Subcutaneous emphysema is down to the level of the abdominal wall is related to patients co-morbid condition(s) of Alcoholic liver cirrhosis with ascites, HTN, Anemia, Hx of smoking & not a complication of the procedure [ ] Subcutaneous emphysema is down to the level of the abdominal wall has been ruled out [ ] Other please specify ____ [ ] Unable to determine (Template Last Revised: May 2020) MTDD
== END 2020-06-26 18:20 | disposition expired | DRG 329 ==
LOC: EC 13:48 → 5NMEDONC 18:20 → 2SICU 06-26 07:48
PROVIDERS: ADMIT Surgery; ATTEND Surgery
PROC: 0DB80ZZ Excision of Small Intestine, Open Approach (ICD-10-PCS; principal; 2020-06-15 19:30)
PROC: 0WQF0ZZ Repair Abdominal Wall, Open Approach (ICD-10-PCS; 2020-06-15 19:30)
PROC: 0W9G3ZZ Drainage of Peritoneal Cavity, Percutaneous Approach (ICD-10-PCS; 2020-06-18)
PROC: 02HV33Z Insertion of Infusion Device into Superior Vena Cava, Percutaneous Approach (ICD-10-PCS; 2020-06-26)
PROC: 03HY32Z Insertion of Monitoring Device into Upper Artery, Percutaneous Approach (ICD-10-PCS; 2020-06-26)
PROC: 3E033XZ Introduction of Vasopressor into Peripheral Vein, Percutaneous Approach (ICD-10-PCS; 2020-06-26)
PROC: 5A1935Z Respiratory Ventilation, Less than 24 Consecutive Hours (ICD-10-PCS; 2020-06-26)
DX: K42.0 Umbilical hernia with obstruction, without gangrene (principal); A40.8 Other streptococcal sepsis; E43 Unspecified severe protein-calorie malnutrition; J96.01 Acute respiratory failure with hypoxia; N17.0 Acute kidney failure with tubular necrosis; G93.41 Metabolic encephalopathy; R65.21 Severe sepsis with septic shock; K55.021 Focal (segmental) acute infarction of small intestine; K76.6 Portal hypertension; N39.0 Urinary tract infection, site not specified; E87.1 Hypo-osmolality and hyponatremia; Z68.1 Body mass index [BMI] 19.9 or less, adult; D68.4 Acquired coagulation factor deficiency; E87.2 Acidosis; T81.44XA Sepsis following a procedure, initial encounter; C22.0 Liver cell carcinoma; J98.11 Atelectasis; T81.31XA Disruption of external operation (surgical) wound, not elsewhere classified, initial encounter; T81.82XA Emphysema (subcutaneous) resulting from a procedure, initial encounter; Z51.5 Encounter for palliative care; Z66 Do not resuscitate; Z20.822 Contact with and (suspected) exposure to COVID-19; K70.31 Alcoholic cirrhosis of liver with ascites; D69.59 Other secondary thrombocytopenia; I10 Essential (primary) hypertension; E78.5 Hyperlipidemia, unspecified; M41.9 Scoliosis, unspecified; F32.9 Major depressive disorder, single episode, unspecified; F41.9 Anxiety disorder, unspecified; I25.2 Old myocardial infarction; Z98.51 Tubal ligation status; Z98.890 Other specified postprocedural states; Z79.899 Other long term (current) drug therapy; Z86.73 Personal history of transient ischemic attack (TIA), and cerebral infarction without residual deficits; Z87.440 Personal history of urinary (tract) infections; Z87.891 Personal history of nicotine dependence; Z80.51 Family history of malignant neoplasm of kidney; K40.90 Unilateral inguinal hernia, without obstruction or gangrene, not specified as recurrent; R68.0 Hypothermia, not associated with low environmental temperature; R26.9 Unspecified abnormalities of gait and mobility; D64.9 Anemia, unspecified; K80.20 Calculus of gallbladder without cholecystitis without obstruction; E87.5 Hyperkalemia; G25.0 Essential tremor; G89.29 Other chronic pain; K70.40 Alcoholic hepatic failure without coma; Y83.8 Other surgical procedures as the cause of abnormal reaction of the patient, or of later complication, without mention of misadventure at the time of the procedure; Y92.238 Other place in hospital as the place of occurrence of the external cause
CPT/HCPCS: 36415; 49083; 71045; 71046; 74176; 74177; 76705; 80048; 80053; 81001; 82042; 82105; 82140; 82150; 82805; 83605; 83690; 83735; 84132; 84157; 85025; 85610; 85730; 86850; 86900; 86901; 87040; 87070; 87075; 87086; 87205; 87635; 88108; 88305; 88307; 93005; 94002; 94640; 94760; 96374; 99285